=== PATIENT | female | born 1945 | race Caucasian/White ===

== ENCOUNTER 2016-08-29 09:24 | Outpatient (CLI) | payer MEDICARE | END 2016-08-29 09:25 | disposition home or self-care (01) | DX: I82.402 Acute embolism and thrombosis of unspecified deep veins of left lower extremity (principal) ==

== ENCOUNTER 2016-09-07 13:18 | Outpatient (CLI) | payer MEDICARE | END 2016-09-07 13:19 | disposition home or self-care (01) | DX: R22.42 Localized swelling, mass and lump, left lower limb (principal); Z86.718 Personal history of other venous thrombosis and embolism ==

== ENCOUNTER 2016-09-13 08:20 | Outpatient (CLI) | payer MEDICARE | END 2016-09-13 08:21 | disposition home or self-care (01) | DX: I82.402 Acute embolism and thrombosis of unspecified deep veins of left lower extremity (principal) ==

== ENCOUNTER 2016-10-14 09:00 | Outpatient (CLI) | payer MEDICARE | END 2016-10-14 09:01 | disposition home or self-care (01) | DX: I82.402 Acute embolism and thrombosis of unspecified deep veins of left lower extremity (principal) ==

== ENCOUNTER 2016-11-22 13:55 | Outpatient (CLI) | payer MEDICARE | END 2016-11-22 13:56 | disposition home or self-care (01) | DX: I82.402 Acute embolism and thrombosis of unspecified deep veins of left lower extremity (principal) ==

== ENCOUNTER 2016-12-05 19:37 | Outpatient (CLI) | payer MEDICARE | END 2016-12-05 19:38 | disposition home or self-care (01) | DX: K80.20 Calculus of gallbladder without cholecystitis without obstruction (principal); K76.0 Fatty (change of) liver, not elsewhere classified ==

== ENCOUNTER 2016-12-12 11:53 | Outpatient (CLI) | payer MEDICARE | END 2016-12-12 11:54 | disposition home or self-care (01) | DX: I82.402 Acute embolism and thrombosis of unspecified deep veins of left lower extremity (principal); D72.829 Elevated white blood cell count, unspecified ==

== ENCOUNTER 2016-12-16 08:17 | Outpatient (CLI) | payer MEDICARE | END 2016-12-16 08:18 | disposition home or self-care (01) | DX: D72.829 Elevated white blood cell count, unspecified (principal); I51.7 Cardiomegaly; R91.8 Other nonspecific abnormal finding of lung field ==

== ENCOUNTER 2016-12-21 14:39 | Outpatient (CLI) | payer MEDICARE ==
[2016-12-21] MEDS ORDERED: IOPAMIDOL-300 100 ML VIAL IVP ONE (16:43)
== END 2016-12-21 14:40 | disposition home or self-care (01) ==
DX: R91.1 Solitary pulmonary nodule (principal); R11.0 Nausea; R63.4 Abnormal weight loss

== ENCOUNTER 2017-01-09 13:48 | Outpatient (CLI) | payer MEDICARE | END 2017-01-09 13:49 | disposition home or self-care (01) | LOC: LAB.F 13:48 | PROVIDERS: ATTEND Internal Medicine | DX: I82.402 Acute embolism and thrombosis of unspecified deep veins of left lower extremity (principal) | CPT/HCPCS: 85610 ==

== ENCOUNTER 2017-01-26 09:09 | Outpatient (CLI) | payer MEDICARE ==
[2017-01-26 09:35] LABS: BASOPHILS # (AUTO) 0.2 10^3/uL (0.0-0.1); EOSINOPHILS # (AUTO) 0.5 10^3/uL (0.0-0.7); EOSINOPHILS % (AUTO) 2.5 %; HCT - HEMATOCRIT 45.2 % (37.0-47.0); HGB - HEMOGLOBIN 14.7 g/dL (12.0-16.0); LYMPHOCYTES # (AUTO) 1.7 10^3/uL (1.5-3.5); LYMPHOCYTES % (AUTO) 7.9 %; MEAN CORPUSCULAR HEMOGLOBIN 30.4 pg (27.0-31.0); MEAN CORPUSCULAR HGB CONC 32.5 g/dL (32.0-36.0); MEAN CORPUSCULAR VOLUME 93.7 fL (81.0-99.0); MEAN PLATELET VOLUME 8.5 fL (7.9-10.8); MONOCYTES # (AUTO) 0.7 10^3/uL (0.0-1.0); MONOCYTES % (AUTO) 3.4 %; NEUTROPHILS # (AUTO) 18.6 10^3/uL (1.5-6.6); NEUTROPHILS % (AUTO) 85.2 %; RED BLOOD COUNT 4.82 10^6/uL (4.20-5.40); RED CELL DISTRIBUTION WIDTH 16.9 % (12.0-15.0); UNCORRECTED WHITE BLOOD COUNT 21.9 x10^3/uL; WHITE BLOOD COUNT 21.9 x10^3/uL (4.8-10.8)
[2017-01-26 10:10] LABS: PLATELET ESTIMATE, MANUAL NORMAL (130-450,000) (NORMAL); PLATELET MORPHOLOGY NORMAL APPEARANCE (NORMAL)
--- NOTE | 2017-01-27 15:33 | Mammography Report ---
DIGITAL SCREENING MAMMOGRAM: 01/26/2017 CLINICAL INDICATION: A 71-year-old with family history of breast cancer, for screening. COMPARISON: 12/2015, 12/2014, 11/2013, 02/2012, 10/2010, 05/2009, 04/2008, 04/2007. TECHNIQUE: Routine CC and MLO projections were obtained of the breasts. Bilateral laterally exaggera milo craniocaudal views. FINDINGS: The breasts again demonstrate scattered fibroglandular densities bilaterally. Coarse and p unctate, typically benign calcifications are present. No suspicious masses, clustered microcalcificat ions, or regions of architectural distortion are identified. IMPRESSION: BENIGN FINDINGS. RECOMMENDATION: ROUTINE ANNUAL SCREENING UNLESS OTHERWISE CLINICALLY INDICATED. BIRADS CATEGORY 2-BENIGN FINDINGS. STANDARD QUALIFYING STATEMENTS 1. This examination was reviewed with the aid of Computer-Aided Detection (CAD). 2. A negative or benign imaging report should not delay biopsy if clinically suspicious findings are present. Consider surgical consultation if warranted. More than 5% of cancers are not identified by i maging. 3. Dense breasts may obscure an underlying neoplasm. JOB #: [id number] EXT JOB #:[id number]
== END 2017-01-26 09:10 | disposition home or self-care (01) ==
LOC: DI 09:09
PROVIDERS: ATTEND Internal Medicine
DX: Z12.31 Encounter for screening mammogram for malignant neoplasm of breast (principal); D72.0 Genetic anomalies of leukocytes; Z80.3 Family history of malignant neoplasm of breast
CPT/HCPCS: 36415; 85025; G0202; 77067

== ENCOUNTER 2017-02-20 10:13 | Outpatient (CLI) | payer MEDICARE | END 2017-02-20 10:14 | disposition home or self-care (01) | LOC: LAB.F 10:13 | PROVIDERS: ATTEND Internal Medicine | DX: I82.402 Acute embolism and thrombosis of unspecified deep veins of left lower extremity (principal) | CPT/HCPCS: 85610 ==

== ENCOUNTER 2017-04-11 14:53 | Outpatient (CLI) | payer MEDICARE | END 2017-04-11 14:54 | disposition home or self-care (01) | LOC: LAB 14:53 | PROVIDERS: ATTEND Internal Medicine | DX: I82.402 Acute embolism and thrombosis of unspecified deep veins of left lower extremity (principal) | CPT/HCPCS: 85610 ==

== ENCOUNTER 2017-04-21 10:09 | Outpatient (CLI) | payer MEDICARE | END 2017-04-21 10:10 | disposition home or self-care (01) | LOC: LAB 10:09 | PROVIDERS: ATTEND Internal Medicine | DX: I82.402 Acute embolism and thrombosis of unspecified deep veins of left lower extremity (principal) | CPT/HCPCS: 85610 ==

== ENCOUNTER 2017-05-03 09:56 | Outpatient (CLI) | payer MEDICARE | END 2017-05-03 09:57 | disposition home or self-care (01) | LOC: LAB.F 09:56 | PROVIDERS: ATTEND Internal Medicine | DX: I82.402 Acute embolism and thrombosis of unspecified deep veins of left lower extremity (principal) | CPT/HCPCS: 85610 ==

== ENCOUNTER 2017-06-16 13:24 | Outpatient (CLI) | payer MEDICARE | END 2017-06-16 13:25 | disposition home or self-care (01) | LOC: LAB.F 13:24 | PROVIDERS: ATTEND Internal Medicine | DX: I82.402 Acute embolism and thrombosis of unspecified deep veins of left lower extremity (principal) | CPT/HCPCS: 85610 ==

== ENCOUNTER 2017-07-07 08:11 | Outpatient (CLI) | payer MEDICARE | END 2017-07-07 08:12 | disposition home or self-care (01) | LOC: LAB.F 08:11 | PROVIDERS: ATTEND Internal Medicine | DX: I82.402 Acute embolism and thrombosis of unspecified deep veins of left lower extremity (principal) | CPT/HCPCS: 85610 ==

== ENCOUNTER 2017-08-11 12:59 | Outpatient (CLI) | payer MEDICARE | END 2017-08-11 13:00 | disposition home or self-care (01) | LOC: LAB.F 12:59 | PROVIDERS: ATTEND Internal Medicine | DX: I82.402 Acute embolism and thrombosis of unspecified deep veins of left lower extremity (principal) | CPT/HCPCS: 85610 ==

== ENCOUNTER 2017-08-23 13:26 | Outpatient (CLI) | payer MEDICARE ==
--- NOTE | 2017-08-24 11:52 | XRAY Report ---
DATE OF SERVICE: 08/23/2017 TWO VIEW CHEST: 08/23/2017 COMPARISON: Chest CT 12/21/2016 INDICATION: Cough, fever. TECHNIQUE: Two views of the chest. FINDINGS There is stable elevation of the right diaphragm. Borderline heart size. Stable finding. No focal pulmonary abnormality. No pneumothorax or pleural effusion. Mediastinum otherwise unremarkable. IMPRESSION: NO EVIDENCE OF ACUTE THORACIC PROCESS. TD: 08/23/2017 18:27 [facility]
== END 2017-08-23 13:27 | disposition home or self-care (01) ==
LOC: DI 13:26
PROVIDERS: ATTEND Internal Medicine
DX: R05 Cough (principal); R50.9 Fever, unspecified
CPT/HCPCS: 71046

== ENCOUNTER 2017-08-29 15:07 | Outpatient (CLI) | payer MEDICARE | END 2017-08-29 15:08 | disposition home or self-care (01) | LOC: LAB.F 15:07 | PROVIDERS: ATTEND Internal Medicine | DX: I82.402 Acute embolism and thrombosis of unspecified deep veins of left lower extremity (principal) | CPT/HCPCS: 85610 ==

== ENCOUNTER 2017-09-05 14:21 | Outpatient (CLI) | payer MEDICARE | END 2017-09-05 14:22 | disposition home or self-care (01) | LOC: LAB.F 14:21 | PROVIDERS: ATTEND Internal Medicine | DX: I82.402 Acute embolism and thrombosis of unspecified deep veins of left lower extremity (principal) | CPT/HCPCS: 85610 ==

== ENCOUNTER 2017-09-27 08:00 | Outpatient (CLI) | payer MEDICARE | END 2017-09-27 08:01 | disposition home or self-care (01) | LOC: LAB.F 08:00 | PROVIDERS: ATTEND Internal Medicine | DX: I82.402 Acute embolism and thrombosis of unspecified deep veins of left lower extremity (principal) | CPT/HCPCS: 85610 ==

== ENCOUNTER 2017-10-02 12:51 | Outpatient (CLI) | payer MEDICARE ==
[2017-10-02 18:04] LABS: GLUCOSE, URINE (UA) NEGATIVE (NEGATIVE); KETONES,URINE (UA) NEGATIVE (NEGATIVE); LEUKOCYTE ESTERASE, URINE TRACE (NEGATIVE); NITRITE,URINE NEGATIVE (NEGATIVE); OCCULT BLOOD,URINE NEGATIVE (NEGATIVE); PH,URINE 5.5 PH (5.0-7.5); PROTEIN,URINE NEGATIVE (NEGATIVE); UROBILINOGEN,URINE 0.2 (NORMAL) E.U./dL (NORMAL)
[2017-10-02 18:18] LABS: BILIRUBIN,URINE SMALL (NEGATIVE); CLARITY,URINE HAZY (CLEAR); ICTOTEST,URINE POSITIVE
[2017-10-02 19:10] LABS: RBC,URINE 0-5 /HPF (0-5)
[2017-10-02 19:11] LABS: BACTERIA,URINE Many /HPF (None Seen); CRYSTALS,URINE >50 Calcium Oxalate /LPF; SQUAMOUS EPITHELIAL CELL,UR FEW Squamous (<= Few)
== END 2017-10-02 12:52 | disposition home or self-care (01) ==
LOC: LAB.F 12:51
PROVIDERS: ATTEND Internal Medicine
DX: R60.9 Edema, unspecified (principal); R30.0 Dysuria
CPT/HCPCS: 36415; 81001; 81003; 83880; 87086

== ENCOUNTER 2017-10-07 12:50 | Outpatient (CLI) | payer MEDICARE | END 2017-10-07 12:51 | disposition home or self-care (01) | LOC: DI 12:50 | PROVIDERS: ATTEND Internal Medicine | DX: R60.9 Edema, unspecified (principal); I51.7 Cardiomegaly; I35.0 Nonrheumatic aortic (valve) stenosis | CPT/HCPCS: 93306 ==

== ENCOUNTER 2017-10-18 10:14 | Outpatient (CLI) | payer MEDICARE ==
[2017-10-18] MEDS ORDERED: BARIUM SULFATE 397 GM ENEMA PR ONE (13:19)
[2017-10-18] MEDS ORDERED: SIMETHICONE/SOD BICARB/CIT AC 1 EACH PACKET PO ONE (13:19)
[2017-10-18] MEDS ORDERED: BARIUM SULFATE 176 GM BOTTLE PO ONE (13:19)
--- NOTE | 2017-10-18 15:15 | XRAY Report ---
UPPER GI WITH SMALL BOWEL FOLLOW-THROUGH: 10/18/2017 CLINICAL INDICATION: Nausea, early satiety. FINDINGS: Single and double contrast upper GI was performed, followed by small bowel follow-through. The esophagus is normal in caliber. Incidental note is made of a small Zenker' s diverticulum arising from the posterior cervical esophagus. No esophageal ulceration, mass lesion, or stricturing is identified. Gastroesophageal reflux was visualized throughout the course of the upper GI study. The stomach demonstrates a normal fold pattern. No gastric ulceration or mass lesion is seen. The duodenal cap distends normally. The duodenal C-loop appears unremarkable. Incidental note is made of a diverticulum arising from the third portion. A 13 mm barium pill passed freely through the esophagus and into the stomach. Contrast passes freely from the duodenum into the more distal small bowel loops. The jejunum and ileum demonstrate normal fold patterns. No abnormal dilatation or separation of small bowel loops is identified. Oral contrast reached the cecum on the 15-minute film. The terminal ileum appears unremarkable. IMPRESSION: 1. SMALL ZENKER'S DIVERTICULUM. 2. GASTROESOPHAGEAL REFLUX, WITHOUT EVIDENCE OF A HIATAL HERNIA. 3. NORMAL SMALL BOWEL FOLLOW-THROUGH. FLUOROSCOPY TIME: 5 MINUTES 40 SECONDS; 30 SPOT IMAGES OBTAINED. TD: 10/18/2017 15:13 [facility]
== END 2017-10-18 10:15 | disposition home or self-care (01) ==
LOC: DI 10:14
PROVIDERS: ATTEND Surgery
DX: K22.5 Diverticulum of esophagus, acquired (principal); K21.9 Gastro-esophageal reflux disease without esophagitis
CPT/HCPCS: 74249; A9270

== ENCOUNTER 2017-10-30 09:34 | Outpatient (CLI) | payer MEDICARE | END 2017-10-30 09:35 | disposition home or self-care (01) | LOC: LAB.F 09:34 | PROVIDERS: ATTEND Internal Medicine | DX: I82.402 Acute embolism and thrombosis of unspecified deep veins of left lower extremity (principal) | CPT/HCPCS: 85610 ==

== ENCOUNTER 2017-12-15 10:29 | Outpatient (CLI) | payer MEDICARE | END 2017-12-15 10:30 | disposition home or self-care (01) | LOC: LAB.F 10:29 | PROVIDERS: ATTEND Internal Medicine | DX: I82.402 Acute embolism and thrombosis of unspecified deep veins of left lower extremity (principal) | CPT/HCPCS: 85610 ==

== ENCOUNTER 2018-01-17 14:36 | Outpatient (CLI) | payer MEDICARE ==
[2018-01-17 17:20] LABS: BILIRUBIN,URINE NEGATIVE (NEGATIVE); GLUCOSE, URINE (UA) NEGATIVE (NEGATIVE); KETONES,URINE (UA) NEGATIVE (NEGATIVE); LEUKOCYTE ESTERASE, URINE SMALL (NEGATIVE); NITRITE,URINE NEGATIVE (NEGATIVE); OCCULT BLOOD,URINE NEGATIVE (NEGATIVE); PH,URINE 6.5 PH (5.0-7.5); PROTEIN,URINE NEGATIVE (NEGATIVE); UROBILINOGEN,URINE 1 (NORMAL) E.U./dL (NORMAL)
[2018-01-17 17:25] LABS: CLARITY,URINE CLEAR (CLEAR)
[2018-01-17 19:45] LABS: BACTERIA,URINE None Seen /HPF (None Seen); RBC,URINE 0-5 /HPF (0-5); SQUAMOUS EPITHELIAL CELL,UR RARE Squamous (<= Few)
== END 2018-01-17 14:37 | disposition home or self-care (01) ==
LOC: LAB.F 14:36
PROVIDERS: ATTEND Internal Medicine
DX: I82.402 Acute embolism and thrombosis of unspecified deep veins of left lower extremity (principal); N30.00 Acute cystitis without hematuria
CPT/HCPCS: 81001; 81003; 85610; 87086

== ENCOUNTER 2018-01-25 08:38 | Outpatient (CLI) | payer MEDICARE ==
[2018-01-25 18:01] LABS: BILIRUBIN,URINE NEGATIVE (NEGATIVE); GLUCOSE, URINE (UA) NEGATIVE (NEGATIVE); KETONES,URINE (UA) NEGATIVE (NEGATIVE); LEUKOCYTE ESTERASE, URINE TRACE (NEGATIVE); NITRITE,URINE NEGATIVE (NEGATIVE); OCCULT BLOOD,URINE NEGATIVE (NEGATIVE); PH,URINE 7.5 PH (5.0-7.5); PROTEIN,URINE NEGATIVE (NEGATIVE); UROBILINOGEN,URINE 1 (NORMAL) E.U./dL (NORMAL)
[2018-01-25 18:15] LABS: BACTERIA,URINE None Seen /HPF (None Seen); CLARITY,URINE CLEAR (CLEAR); CREATININE,URINE 82.2 mg/dL; RBC,URINE 0-5 /HPF (0-5); SQUAMOUS EPITHELIAL CELL,UR FEW Squamous (<= Few)
[2018-01-25 18:27] LABS: MICROALBUMIN,URINE < 0.2 mg/dL (0-300.0)
[2018-01-25 18:35] LABS: CHOL/HDL RATIO 4.9 (<4.4); CHOLESTEROL 131 mg/dL; HDL CHOLESTEROL 27 mg/dL; LDL CHOLESTEROL,CALCULATED 85 mg/dL; LDL/HDL RATIO 3.1 (<4.4); VLDL CHOLESTEROL 19 mg/dL
[2018-01-25 18:57] LABS: HB2 TOTAL 15.4 g/dL; HEMOGLOBIN A1C 0.59 g/dL; HEMOGLOBIN A1C % 5.7 % (4.6-6.2)
== END 2018-01-25 08:39 | disposition home or self-care (01) ==
LOC: LAB.F 08:38
PROVIDERS: ATTEND Internal Medicine
DX: Z12.11 Encounter for screening for malignant neoplasm of colon (principal); Z12.12 Encounter for screening for malignant neoplasm of rectum; R50.9 Fever, unspecified; R58 Hemorrhage, not elsewhere classified; K11.7 Disturbances of salivary secretion; I10 Essential (primary) hypertension; J30.2 Other seasonal allergic rhinitis; R05 Cough; J45.909 Unspecified asthma, uncomplicated; I33.0 Acute and subacute infective endocarditis; K76.0 Fatty (change of) liver, not elsewhere classified; R91.1 Solitary pulmonary nodule; E78.3 Hyperchylomicronemia; G11.9 Hereditary ataxia, unspecified; D72.825 Bandemia; Z86.718 Personal history of other venous thrombosis and embolism; D68.51 Activated protein C resistance; K57.90 Diverticulosis of intestine, part unspecified, without perforation or abscess without bleeding; M19.90 Unspecified osteoarthritis, unspecified site; Z79.899 Other long term (current) drug therapy; I82.402 Acute embolism and thrombosis of unspecified deep veins of left lower extremity; Z13.1 Encounter for screening for diabetes mellitus
CPT/HCPCS: 36415; 80053; 80061; 81001; 82043; 82570; 83036; 83721; 84443; 85025; 85610; 87040; 87086

== ENCOUNTER 2018-01-31 10:46 | Outpatient (CLI) | payer MEDICARE ==
[2018-01-31] MEDS ORDERED: IOPAMIDOL-300 100 ML VIAL ONE (11:01)
--- NOTE | 2018-01-31 12:46 | CT Report ---
Procedure Date: 01/31/2018 Accession Number: [id number] / [id number] Procedure: CT - Chest W/ CPT Code: FULL RESULT: EXAM: Chest W/ 01/31/2018 11:21 AM CLINICAL INDICATION: Nodule, fever COMPARISON: 12/21/2016 TECHNIQUE: Axial CT images of the chest were obtained with 80 mL Isovue 300 FINDINGS: The heart and great vessels demonstrate atherosclerotic calcifications. No hilar or mediastinal lymphadenopathy is present. There is patchy left upper lobe infiltrate present. The previously noted 6 mm nodule in the lateral right lower lobe is stable. Additionally, a 4 mm nodule is present in the right upper lobe, also stable. No effusion or pneumothorax. Limited evaluation of upper abdominal structures demonstrates small volume of ascites. Cholelithiasis is noted. IMPRESSION: Stable 6 mm nodule in the lateral right lower lobe. Patchy left upper lobe infiltrate, which may be responsible for the patient's fever. Trace ascites in the upper abdomen, new from previous. CT DOSE REDUCTION STATEMENT In accordance with CT protocol optimization, one or more of the following were used for this exam: automated exposure control, adjustment of mA and or KV based on patient size, or use of iterative reconstructive technique.
[2018-01-31] MEDS ORDERED: IOPAMIDOL-300 100 ML VIAL IVP ONE (13:06)
== END 2018-01-31 10:47 | disposition home or self-care (01) ==
LOC: DI 10:46
PROVIDERS: ATTEND Internal Medicine
DX: R91.1 Solitary pulmonary nodule (principal); R91.8 Other nonspecific abnormal finding of lung field
CPT/HCPCS: 71260; Q9967

== ENCOUNTER 2018-02-13 15:01 | Outpatient (CLI) | payer MEDICARE | END 2018-02-13 15:02 | disposition home or self-care (01) | LOC: LAB.F 15:01 | PROVIDERS: ATTEND Internal Medicine | DX: I82.402 Acute embolism and thrombosis of unspecified deep veins of left lower extremity (principal) | CPT/HCPCS: 85610 ==

== ENCOUNTER 2018-03-07 11:12 | Outpatient (CLI) | payer MEDICARE | END 2018-03-07 11:13 | disposition home or self-care (01) | LOC: LAB.F 11:12 | PROVIDERS: ATTEND Internal Medicine | DX: I82.402 Acute embolism and thrombosis of unspecified deep veins of left lower extremity (principal) | CPT/HCPCS: 85610 ==

== ENCOUNTER 2018-03-10 19:35 | Emergency (ER) | payer MEDICARE ==
[2018-03-10 19:49] VITALS: BP 162/65
[2018-03-10] MEDS ORDERED: HYDROcod/ACETAM 5/325 MG TABLET PO STA (19:55)
--- NOTE | 2018-03-10 19:57 | ED Physician Documentation ---
PD HPI HEAD INJURY - Stated complaint Stated Complaint: GLF/HIT HEAD/NOSE INJURY - Chief complaint Chief Complaint: Trauma Hd/Nk - History obtained from History obtained from: Patient - History of Present Illness Mechanism of head injury: Fell (72-year-old woman with factor V Leiden deficiency and history of DVTs on warfarin with last INR of 2.3 last week presents after a slip and mechanical fall going up 2 stairs because they were outside stairs and they were wet as she was addressing her hot tub and she hit her face and the left parietal area on the junction between the floor and the wall. There is no loss of consciousness. She does have moderate facial pain and headache. Tetanus is up-to-date. No injuries below the nose.) Review of Systems Constitutional: denies: Fever, Chills Cardiac: denies: Chest pain / pressure, Palpitations Respiratory: denies: Dyspnea, Cough Musculoskeletal: denies: Neck pain, Back pain Neurologic: reports: Headache, Head injury. denies: LOC PD PAST MEDICAL HISTORY - Present Medications Home Medications: Ambulatory Orders Medication Instructions Recorded Confirmed Warfarin [Coumadin] 1 tab ORAL DAILY 03/14/17 01/30/18 Calcium Carbonate/Vitamin D3 1 tab PO DAILY 07/11/17 01/30/18 [Calcium 250-Vit D3 125 Tablet] traZODone [Desyrel] 1 tab PO DAILY 07/11/17 01/30/18 Furosemide [Lasix] 1 tab PO DAILY 10/31/17 01/30/18 Oxycodone HCl/Acetaminophen 1 - 2 tab PO Q4H PRN #7 tablet 03/10/18 [Percocet 5-325 mg Tablet] - Allergies Allergies/Adverse Reactions: Allergies Allergy/AdvReac Type Severity Reaction Status Date / Time No Known Drug Allergies Allergy Verified 03/10/18 20:06 PD ED PE NORMAL - Vitals Vital signs reviewed: Yes - General General: Alert and oriented X 3, No acute distress - HEENT HEENT: PERRL, EOMI, Other (There is an abrasion over the bridge of the nose with tenderness of the bridge of the nose and slight leftward deviation of the entire nose. There is no septal hematoma. She has a large boggy hematoma over the left parietal area.) - Neck Neck: Supple, no meningeal sign, No bony TTP - Cardiac Cardiac: RRR, No murmur - Respiratory Respiratory: No respiratory distress, Clear bilaterally - Abdomen Abdomen: Normal bowel sounds, Soft, Non tender - Back Back: No CVA TTP, No spinal TTP - Derm Derm: Normal color, Warm and dry - Neuro Neuro: Alert and oriented X 3, Normal speech Eye Opening: Spontaneous Motor: Obeys Commands Verbal: Oriented GCS Score: 15 - Psych Psych: Normal mood, Normal affect Results - Vitals Vitals: Vital Signs - 24 hr 03/10/18 19:35 Temperature 36.7 C Heart Rate 80 Respiratory 16 Rate Blood Pressure 162/65 H O2 Saturation 97 Oxygen O2 Source Room air - Labs Labs: Laboratory Tests 03/10/18 20:03 Whole Blood INR 2.4 H - Rads (name of study) CT Head and face Radiology: EMP read contemporaneously (Subgaleal hematomas without any intracranial injury, there is a nasal fracture which I believe is acute based on the history and physical, it was indeterminant on the CT.) PD MEDICAL DECISION MAKING - Sepsis Event Vital Signs: Vital Signs - 24 hr 03/10/18 19:35 Temperature 36.7 C Heart Rate 80 Respiratory 16 Rate Blood Pressure 162/65 H O2 Saturation 97 Oxygen O2 Source Room air Departure - Departure Disposition: 01 Home, Self Care Clinical Impression: Adequate anticoagulation on anticoagulant therapy Fracture of nasal bone Qualifiers: Encounter type: initial encounter Fracture type: closed Qualified Code(s): S02.2XXA - Fracture of nasal bones, initial encounter for closed fracture Injury of head and neck Qualifiers: Encounter type: initial encounter Qualified Code(s): S09.90XA - Unspecified injury of head, initial encounter; S19.9XXA - Unspecified injury of neck, initial encounter; S19.9XXA - Unspecified injury of neck, initial encounter Clinical Impression: (Ruled Out): Subdural hemorrhage Condition: Good Record reviewed to determine appropriate education?: Yes Instructions: ED Head Injury Closed Sleep Mon, ED Fx Nasal Conf W X Ray Prescriptions: Oxycodone HCl/Acetaminophen [Percocet 5-325 mg Tablet] 1 - 2 tab PO Q4H PRN #7 tablet PRN Reason: Pain Comments: Return if worsening or if new symptoms develop. Your blood pressure was elevated today on check into the emergency department. This does not mean that you have hypertension, it is a common phenomenon to come to the emergency department and have elevated blood pressure. I recommend that you see your primary care physician within the week to have it rechecked when you are feeling better. Do not drink or drive while taking narcotic pain medication. Note that many narcotic pain relievers also contain Tylenol/acetaminophen. Please ensure that your total dose of acetaminophen from all sources does not exceed 3 g (3000 mg) per day. You may get constipated while on this medication. Take a stool softener such as Colace twice a day while you are on it. Also add an [id number] laxative such as senna or MiraLAX on any day that you do not have a bowel movement. If you received a narcotic pain medication or sedative while in the emergency department, do not drive for the next 24 hours.
--- NOTE | 2018-03-10 21:01 | CT Report ---
Procedure Date: 03/10/2018 Accession Number: [id number] / [id number] Procedure: CT - Head W/O CPT Code: FULL RESULT: EXAM: CT HEAD EXAM DATE: 03/10/2018 08:33 PM. CLINICAL HISTORY: Fall. Head/facial injury. COMPARISON: None. TECHNIQUE: Multiaxial CT images were obtained from the foramen magnum to the vertex. Reformats: Sagittal and coronal. IV contrast: None. In accordance with CT protocol optimization, one or more of the following dose reduction techniques were utilized for this exam: automated exposure control, adjustment of mA and/or KV based on patient size, or use of iterative reconstructive technique. FINDINGS: Parenchyma: No intraparenchymal hemorrhage, mass effect, or CT findings of evolving acute/subacute infarct. Tobin-white differentiation is distinct. Extraaxial Spaces: Normal for age. No subdural or epidural collections identified. Ventricles: Normal in size and position. Sinuses and Orbits: Imaged paranasal sinuses, orbits, and mastoids show no significant abnormality. Bones: Hyperostosis frontalis interna. No calvarial fracture or defect. Age-indeterminate minimally displaced left anterior nasal bone fracture. Other: Right frontal and left parietal subgaleal scalp hematomas. IMPRESSION: 1. Right frontal and left parietal subgaleal scalp hematomas. 2. Age-indeterminate minimally displaced left anterior nasal bone fracture. 3. No acute intracranial abnormality. RADIA
--- NOTE | 2018-03-10 21:04 | CT Report ---
Procedure Date: 03/10/2018 Accession Number: [id number] / [id number] Procedure: CT - Facial Bones W/O CPT Code: FULL RESULT: EXAM: CT MAXILLOFACIAL WITHOUT CONTRAST EXAM DATE: 03/10/2018 08:32 PM. CLINICAL HISTORY: Fall. Head/facial injury. COMPARISONS: None. TECHNIQUE: Thin-section axial images were acquired of the face without contrast. Post-processing: Coronal and sagittal reformats. Other: None. In accordance with CT protocol optimization, one or more of the following dose reduction techniques were utilized for this exam: automated exposure control, adjustment of mA and/or KV based on patient size, or use of iterative reconstructive technique. FINDINGS: Bones: Age-indeterminate minimally displaced left anterior nasal bone fracture. Temporomandibular Joints: The temporomandibular joints are symmetric and normally located. Sinuses: Mild mucosal thickening in the maxillary sinus floors. Otherwise clear. No fluid levels. Other: Right frontal subgaleal scalp hematoma. Mild right paranasal soft tissue swelling. The globes are intact. No evidence for retrobulbar hematoma. IMPRESSION: Age-indeterminate minimally displaced left anterior nasal bone fracture. RADIA
[2018-03-10] MEDS ORDERED: oxyCODONE/ACET 5/325 Prepack 4 PO STA (21:13)
== END 2018-03-10 21:22 | disposition home or self-care (01) ==
LOC: ED 19:35
DX: S02.2XXA Fracture of nasal bones, initial encounter for closed fracture (principal); S09.90XA Unspecified injury of head, initial encounter; S19.9XXA Unspecified injury of neck, initial encounter; S00.31XA Abrasion of nose, initial encounter; S00.03XA Contusion of scalp, initial encounter; W10.9XXA Fall (on) (from) unspecified stairs and steps, initial encounter; Z79.01 Long term (current) use of anticoagulants
CPT/HCPCS: 70450; 70486; 85610; 99283; A9270

== ENCOUNTER 2018-03-23 08:10 | Outpatient (CLI) | payer MEDICARE ==
[2018-03-23] MEDS ORDERED: IOPAMIDOL-300 100 ML VIAL ONE (08:30)
[2018-03-23] MEDS ORDERED: IOPAMIDOL-300 50 ML VIAL ONE (08:30)
[2018-03-23 08:36] LABS: CREATININE 0.4 mg/dL (0.4-1.0)
[2018-03-23] MEDS ORDERED: IOPAMIDOL-300 50 ML VIAL PO ONE (09:59)
[2018-03-23] MEDS ORDERED: IOPAMIDOL-300 100 ML VIAL IVP ONE (09:59)
--- NOTE | 2018-03-23 13:21 | CT Report ---
Procedure Date: 03/23/2018 Accession Number: [id number] / [id number] Procedure: CT - Abdomen/Pelvis W/ CPT Code: FULL RESULT: EXAM: Abdomen/Pelvis W/ DATE: 03/23/2018 9:55 AM CLINICAL HISTORY: ASCITES COMPARISON: 12/21/2016. TECHNIQUE: Routine helical CT imaging was performed through the abdomen and pelvis. IV contrast: 100 mL Isovue 300. Enteric contrast: Yes. Reconstructions: Coronal and sagittal. In accordance with CT protocol optimization, one or more of the following dose reduction techniques were utilized for this exam: automated exposure control, adjustment of mA and/or KV based on patient size, or use of iterative reconstructive technique. FINDINGS: Interval development of ascites and soft tissue anasarca. Splenomegaly up to 17 cm. Cholelithiasis. Uterine calcifications are noted. Interval increase in mild prominence of retroperitoneal and left iliac lymph nodes which do not meet size criteria. The kidneys, adrenal glands and pancreas appear unremarkable. There is no bowel obstruction. Apparent cortical disruptions along the anterior femoral neck cortices seen on one slice only on the right and for a length of 1 cm on the left are unchanged in appearance without additional signs to suggest fracture or impending fracture, possible nutrient foramina. Flowing anterior osteophytosis of the lower thoracic spine is noted (DISH). There are no aggressive osseous lesions. Bones appear qualitatively osteopenic. IMPRESSION: Interval development of ascites in the setting of anasarca. The increase in prominence of the retroperitoneal lymph nodes is nonspecific. RADIA
== END 2018-03-23 08:11 | disposition home or self-care (01) ==
LOC: LAB 08:10
PROVIDERS: ATTEND Internal Medicine
DX: R18.8 Other ascites (principal); R19.07 Generalized intra-abdominal and pelvic swelling, mass and lump
CPT/HCPCS: 36415; 74177; 82565; Q9967

== ENCOUNTER 2018-03-27 10:06 | Outpatient (CLI) | payer MEDICARE | END 2018-03-27 10:07 | disposition critical access hospital (66) | LOC: EMS 10:06 | PROVIDERS: ATTEND Surgery | DX: R06.02 Shortness of breath (principal) | CPT/HCPCS: A0425; A0429 ==

== ENCOUNTER 2018-03-27 10:23 | Inpatient (IN) | payer MEDICARE ==
[2018-03-27] MEDS ORDERED: ALBUTEROL NEB 2.5 MG/3 ML INH STA ×2 (10:31→13:00)
[2018-03-27] MEDS ORDERED: DEXAMETHASONE 10 MG/ML VIAL PO STA ×2 (10:31→13:00)
--- NOTE | 2018-03-27 10:34 | ED Physician Documentation ---
History of Present Illness - Stated complaint Stated Complaint: SOA - Additonal information Additional information: hx from pt she states she had pna in Sep or October txed with xmax then went on 6 wk trip to [facility] again upon return had a CT scan that showed pna (and apparently no PE) again txed with pna no sx back again and is on her third zpack in 6 months also on day 3 of prednisone has albuterol MDI as rescue but has only used twice in the last few days furthermore recently had a CT scan showing an enlarged spleen and ascites and has been referred to pulmonology and oncology for further work up on coumadin no fever (tmax 99) + anna symm leg edema called 911 for SOA and was found hypoxic with sat 86% RA was placed on O2 Review of Systems Constitutional: denies: Fever Cardiac: denies: Chest pain / pressure Respiratory: reports: Dyspnea, Cough, Wheezing GI: reports: Abdominal Swelling Musculoskeletal: reports: Extremity swelling Endocrine: reports: Easy bruising / bleeding Immunocompromised: denies: Immunocompromised PD PAST MEDICAL HISTORY - Past Medical History Respiratory: Asthma - Past Surgical History 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 HEENT: Tonsil/Adenoidectomy - Present Medications Home Medications: Ambulatory Orders Medication Instructions Recorded Confirmed Warfarin [Coumadin] 5 mg PO SUMOTUWETHSA@209903/14/17 03/27/18 Calcium Carbonate/Vitamin D3 1 tab PO DAILY 07/11/17 03/27/18 [Calcium 250-Vit D3 125 Tablet] traZODone [Desyrel] 50 mg PO QPM 07/11/17 03/27/18 Furosemide [Lasix] 20 mg PO DAILY 10/31/17 03/27/18 Albuterol Sulfate [Proair Hfa 2 puffs INH Q4H PRN 03/27/18 03/27/18 Inhaler] Fluticasone [Flonase] 2 sprays DEBI DAILY 03/27/18 03/27/18 Fluticasone/Salmeterol [Advair 1 puffs INH BID 03/27/18 03/27/18 250-50 Diskus] Warfarin [Coumadin] 10 mg PO FR@209903/27/18 03/27/18 - Allergies Allergies/Adverse Reactions: Allergies Allergy/AdvReac Type Severity Reaction Status Date / Time No Known Drug Allergies Allergy Verified 03/27/18 10:40 - Social History Does the pt smoke?: No Smoking Status: Never smoker Does the pt drink ETOH?: Yes Does the pt have substance abuse?: No PD ED PE NORMAL - Vitals Vital signs reviewed: Yes - General General: Alert and oriented X 3 - Cardiac Cardiac: RRR - Respiratory Respiratory: Other (labored, decreased some rales and ronchi). No: No respiratory distress, Clear bilaterally - Abdomen Abdomen: Soft, Non tender, Other (distended non tender ant abd pain lipoma) - Extremities Extremities: Other (anna symm edema) - Neuro Neuro: Alert and oriented X 3 Results - Vitals Vitals: Vital Signs - 24 hr 03/27/18 03/27/18 10:36 11:00 Temperature 37.5 C Heart Rate 96 94 Respiratory 20 22 Rate Blood Pressure 154/69 H O2 Saturation 94 Oxygen O2 Source Nasal cannula Oxygen Flow Rate 3 - EKG (time done) 1039 Rate: Rate (enter#) (98) Rhythm: NSR [place]: Anterior hemiblock Intervals: RBBB Compare to prior EKG: Other (prior echo but no prior EKG in EMR) - Labs Labs: Laboratory Tests 03/27/18 03/27/18 03/27/18 10:48 10:57 10:57 WBC 33.5 H RBC 4.48 Hgb 13.8 Hct 42.1 MCV 94.0 MCH 30.9 MCHC 32.9 RDW 19.6 H Plt Count 157 MPV 9.2 Neut # (Auto) Not Reportable Lymph # (Auto) Not Reportable [place] # (Auto) Not Reportable Eos # (Auto) Not Reportable Baso # (Auto) Not Reportable Absolute Nucleated RBC Not Reportable Total Counted 100 Band Neuts % (Manual) 12 H Abnorm Lymph % (Manual) 0 Metamyelocytes % 1 H Nucleated RBC % Not Reportable Neutrophils # (Manual) 31.2 H Lymphocytes # (Manual) 0.7 L Monocytes # (Manual) 1.3 H Eosinophils # (Manual) 0.0 Basophils # (Manual) 0.0 Differential Comment MANUAL DIFFERENTIAL Manual Slide Review Indicated Platelet Estimate NORMAL (130-450,000) Platelet Morphology NORMAL APPEARANCE RBC Morph Micro Appear NORMAL APPEARANCE PT INR Sodium 136 Potassium 3.8 Chloride 100 L Carbon Dioxide 28 Anion Gap 8.0 BUN 11 Creatinine 0.5 Estimated GFR (MDRD) 121 Glucose 119 H Calcium 8.6 Total Bilirubin Direct Bilirubin AST ALT Alkaline Phosphatase Troponin I B-Natriuretic Peptide Total Protein Albumin Globulin Urine Color ORANGE Urine Clarity CLEAR Urine pH 6.0 Ur Specific [place] 1.020 Urine Protein NEGATIVE Urine Glucose (UA) NEGATIVE Urine Ketones NEGATIVE Urine Occult Blood NEGATIVE Urine Nitrite NEGATIVE Urine Bilirubin SMALL H Urine Urobilinogen 1 (NORMAL) Ur Leukocyte Esterase SMALL H Urine RBC None Seen Urine WBC 11-25 H Ur Squamous Epith Cells FEW Squamous Urine Bacteria Moderate H Urine Mucus Few Strands Ur Microscopic Review INDICATED Urine Culture Comments INDICATED Infectious [place] Assay 03/27/18 03/27/18 03/27/18 10:57 10:57 10:57 WBC RBC Hgb Hct MCV MCH MCHC RDW Plt Count MPV Neut # (Auto) Lymph # (Auto) [place] # (Auto) Eos # (Auto) Baso # (Auto) Absolute Nucleated RBC Total Counted Band Neuts % (Manual) Abnorm Lymph % (Manual) Metamyelocytes % Nucleated RBC % Neutrophils # (Manual) Lymphocytes # (Manual) Monocytes # (Manual) Eosinophils # (Manual) Basophils # (Manual) Differential Comment Manual Slide Review Platelet Estimate Platelet Morphology RBC Morph Micro Appear PT INR Sodium Potassium Chloride Carbon Dioxide Anion Gap BUN Creatinine Estimated GFR (MDRD) Glucose Calcium Total Bilirubin Direct Bilirubin AST ALT Alkaline Phosphatase Troponin I < 0.04 B-Natriuretic Peptide 398 H Total Protein Albumin Globulin Urine Color Urine Clarity Urine pH Ur Specific [place] Urine Protein Urine Glucose (UA) Urine Ketones Urine Occult Blood Urine Nitrite Urine Bilirubin Urine Urobilinogen Ur Leukocyte Esterase Urine RBC Urine WBC Ur Squamous Epith Cells Urine Bacteria Urine Mucus Ur Microscopic Review Urine Culture Comments Infectious [place] Assay NEGATIVE 03/27/18 03/27/18 10:57 10:57 WBC RBC Hgb Hct MCV MCH MCHC RDW Plt Count MPV Neut # (Auto) Lymph # (Auto) [place] # (Auto) Eos # (Auto) Baso # (Auto) Absolute Nucleated RBC Total Counted Band Neuts % (Manual) Abnorm Lymph % (Manual) Metamyelocytes % Nucleated RBC % Neutrophils # (Manual) Lymphocytes # (Manual) Monocytes # (Manual) Eosinophils # (Manual) Basophils # (Manual) Differential Comment Manual Slide Review Platelet Estimate Platelet Morphology RBC Morph Micro Appear PT 35.8 H INR 3.3 H Sodium Potassium Chloride Carbon Dioxide Anion Gap BUN Creatinine Estimated GFR (MDRD) Glucose Calcium Total Bilirubin 2.3 H Direct Bilirubin 0.7 H AST 77 H ALT 40 Alkaline Phosphatase 196 H Troponin I B-Natriuretic Peptide Total Protein 7.5 Albumin 2.7 L Globulin 4.8 H Urine Color Urine Clarity Urine pH Ur Specific [place] Urine Protein Urine Glucose (UA) Urine Ketones Urine Occult Blood Urine Nitrite Urine Bilirubin Urine Urobilinogen Ur Leukocyte Esterase Urine RBC Urine WBC Ur Squamous Epith Cells Urine Bacteria Urine Mucus Ur Microscopic Review Urine Culture Comments Infectious [place] Assay - Rads (name of study) CXR Radiology: See rad report (new RML infiltrate) PD MEDICAL DECISION MAKING - ED course ED course: CT chest January 2018 showed patchy JENNIFER infiltrate and table nodules - was with contrast and no PE CT AP from this week shows gallstones, splenomegaly, ascites, uterine calcifications and adenopathy (pt advised) onc notes indicate pt has myeloprolifitive neoplasm with leukocytosis (but today higher with bandemia), nl H/H plt, also elev bili is not new has new RML infiltrate has failed outpt tx (admittedly could have used MDI more often, but had been on MDI steroids antibiotics at home and failed that tx plan) - worse and today was hypoxic d/w hospitalist at 1255 gave decadron and nebs defer ab choice to admitting team as pt does not meet sepsis criteria and has already been on oral ab so not emergently needing - Sepsis Event Vital Signs: Vital Signs - 24 hr 03/27/18 03/27/18 10:36 11:00 Temperature 37.5 C Heart Rate 96 94 Respiratory 20 22 Rate Blood Pressure 154/69 H O2 Saturation 94 Oxygen O2 Source Nasal cannula Oxygen Flow Rate 3 Departure - Departure Disposition: [facility] DC/Xfer Clinical Impression: Hypoxia Pneumonia Qualifiers: Pneumonia type: due to unspecified organism Laterality: right Lung location: middle lobe of lung Qualified Code(s): J18.1 - Lobar pneumonia, unspecified organism Asthma Qualifiers: Asthma severity: unspecified severity Asthma persistence: unspecified Asthma complication type: with acute exacerbation Qualified Code(s): J45.901 - Unspecified asthma with (acute) exacerbation Condition: Fair Discharge Date/Time: 03/27/18 14:21
[2018-03-27] MEDS ORDERED: CHERRY SYRUP 10 ML UDC PO ONE ×2 (10:46→13:04)
[2018-03-27 11:09] LABS: BILIRUBIN,URINE SMALL (NEGATIVE); GLUCOSE, URINE (UA) NEGATIVE (NEGATIVE); KETONES,URINE (UA) NEGATIVE (NEGATIVE); LEUKOCYTE ESTERASE, URINE SMALL (NEGATIVE); NITRITE,URINE NEGATIVE (NEGATIVE); OCCULT BLOOD,URINE NEGATIVE (NEGATIVE); PROTEIN,URINE NEGATIVE (NEGATIVE); UROBILINOGEN,URINE 1 (NORMAL) E.U./dL (NORMAL)
[2018-03-27 11:12] LABS: BASOPHILS % (AUTO) 1.6 %; EOSINOPHILS % (AUTO) 0.8 %; HGB - HEMOGLOBIN 13.8 g/dL (12.0-16.0); LYMPHOCYTES % (AUTO) 1.7 %; MEAN CORPUSCULAR HEMOGLOBIN 30.9 pg (27.0-31.0); MEAN CORPUSCULAR HGB CONC 32.9 g/dL (32.0-36.0); MEAN PLATELET VOLUME 9.2 fL (7.9-10.8); MONOCYTES % (AUTO) 3.1 %; NEUTROPHILS % (AUTO) 92.8 %; PLT - PLATELET COUNT 157 10^3/uL (130-450); RED BLOOD COUNT 4.48 10^6/uL (4.20-5.40); RED CELL DISTRIBUTION WIDTH 19.6 % (12.0-15.0); WHITE BLOOD COUNT 33.5 x10^3/uL (4.8-10.8)
[2018-03-27 11:16] LABS: CALCIUM 8.6 mg/dL (8.5-10.3); CREATININE 0.5 mg/dL (0.4-1.0)
[2018-03-27 11:28] LABS: CLARITY,URINE CLEAR (CLEAR)
[2018-03-27 11:29] LABS: BACTERIA,URINE Moderate /HPF (None Seen); MUCUS,URINE Few Strands; RBC,URINE None Seen /HPF (0-5); SQUAMOUS EPITHELIAL CELL,UR FEW Squamous (<= Few)
--- NOTE | 2018-03-27 12:13 | XRAY Report ---
Procedure Date: 03/27/2018 Accession Number: [id number] / [id number] Procedure: XR - Chest 2 View X-Ray CPT Code: 49685 FULL RESULT: EXAM: CHEST RADIOGRAPHY EXAM DATE: 03/27/2018 11:59 AM. CLINICAL HISTORY: Cough soa rales. COMPARISON: 08/23/2017, 01/31/2018. TECHNIQUE: 2 views. FINDINGS: Lungs/Pleura: Right middle lobe infiltrate. Chronic eventration anterior right hemidiaphragm. Scarring left lung base. No pleural effusion. No pneumothorax. Decreased volumes. Mediastinum: Mild cardiomegaly and ectatic aorta Other: DJD spine IMPRESSION: Right middle lobe infiltrate RADIA
[2018-03-27 12:19] LABS: ABNORMAL LYMPHS % (MANUAL) 0 %
[2018-03-27 12:20] LABS: BAND NEUTROPHILS % (MANUAL) 12 %; DIFFERENTIAL COMMENT MANUAL DIFFERENTIAL; LYMPHOCYTES # (MANUAL) 0.7 10^3/uL (1.5-3.5); LYMPHOCYTES % (MANUAL) 2 %; METAMYELOCYTES % (MANUAL) 1 %; MONOCYTES # (MANUAL) 1.3 10^3/uL (0.0-1.0); NEUTROPHILS # (MANUAL) 31.2 10^3/uL (1.5-6.6); NEUTROPHILS % (MANUAL) 81 %; PLATELET ESTIMATE, MANUAL NORMAL (130-450,000) (NORMAL); PLATELET MORPHOLOGY NORMAL APPEARANCE (NORMAL); RBC MORPHOLOGY (MULTIPLE) NORMAL APPEARANCE (NORMAL)
[2018-03-27 12:58] LABS: INR 3.3 (0.8-1.2); PT - PROTHROMBIN TIME 35.8 secs (9.9-12.6)
[2018-03-27] MEDS ORDERED: ALBUTEROL NEB 2.5 MG/3 ML INH PRN (13:02)
[2018-03-27] MEDS ORDERED: HYDROcod/ACETAM 5/325 MG TABLET PO PRN (13:02)
[2018-03-27] MEDS ORDERED: HYDROcod/ACETAM 10 MG/325 MG TABLET PO PRN (13:02)
[2018-03-27] MEDS ORDERED: ACETAMINOPHEN 325 MG TABLET PO PRN (13:02)
[2018-03-27] MEDS ORDERED: ONDANSETRON 4 MG/2 ML VIAL IVP PRN (13:02)
[2018-03-27] MEDS ORDERED: ZOLPIDEM 5 MG TABLET PO PRN (13:02)
[2018-03-27] MEDS ORDERED: PROCHLORPERAZINE 10 MG/2 ML VIAL IVP PRN (13:02)
--- NOTE | 2018-03-27 13:09 | HISTORY & PHYSICAL EXAMINATION ---
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 The patient states that she has had 3 episodes of pneumonia since June 2017. She states that she has been treated with Z-Herminio all 3 times. She states her most recent episode was in January 2018. She states that she seems to be better for short period of time but then has recurrence of the pneumonia. 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 She states that over the last 2 days she has had increasing cough and this morning she became very short of breath just at rest. She states that she could not even talk she was so short of breath. She denies any fevers or chills but states that she had a long coughing episode prior to the shortness of breath this morning. She does admit to having a chronic cough but states it has been worse the last 2 days. She states that she was in significant respiratory distress when she finally decided to come to the emergency department. The patient also states that she has been having some abdominal discomfort and abdominal distention over the last few months. She states that she saw her primary care physician regarding the symptoms and underwent a CT of her abdomen and pelvis. The patient was found to have splenomegaly which was old, along with developing ascites and increased retroperitoneal lymph nodes on the CT scan. The patient was scheduled to see her oncologist today but came to the emergency department. The patient has also been following up with surgery regarding gallstones and is scheduled to get a HIDA scan tomorrow. Regarding the patient's cough and recurrent pneumonia she also has an appointment with pulmonology in April. The patient denies any chest pain, orthopnea, PND but does admit to increased lower extremity swelling. The patient states that she had been dieting and exercising and had lost 60 pounds. She states that over the last few weeks she has gained a lot of weight. She also states that she has become increasingly swollen her abdomen as well as in her legs. Patient otherwise denies any headaches, blurred vision, runny nose, sore throat , nasal congestion, difficulty swallowing, palpitations, nausea, vomiting, diarrhea, constipation, joint pain, muscle aches, back pain, neck stiffness, change in appetite, hair loss, skin rashes, polyuria, polydipsia, night sweats or any focal neurologic deficits. On presentation to the emergency department the patient was afebrile, mildly tachycardic with a heart rate of 96, hypertensive and hypoxic down to 85% on room air. The patient was placed on 3 L of oxygen and oxygen saturation improved to 92%. While the patient was in the emergency department she was tachypneic with respiratory rate up to 34. The patient did appear to be in mild to moderate respiratory distress when she appeared in the emergency department. The patient was treated in the emergency department with Decadron and albuterol. The patient did have some mild improvement but remained hypoxic. The patient's chest x-ray showed a right middle lobe pneumonia and given her failure with outpatient treatment in the past she was admitted for IV antibiotics. The patient did have a leukocytosis of 33.5 however given her myeloproliferative disorder this was near her chronic range. The patient did have small leukocyte esterase with 11-25 WBCs and bacteria on her urine analysis. The patient's BNP was slightly elevated at 398 and troponin was negative. The patient's INR was mildly elevated at 3.3. The patient's LFTs were not checked in the emergency department. 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 Her and her have been for almost 50 years. 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 She has 2 children. She does drink wine occasionally but denies ever having smoked cigarettes and denies any illicit drug use per - POLST POLST Status: Full Code Meds/Allgy - Home Medications Home Medications: Ambulatory Orders Medication Instructions Recorded Confirmed Warfarin [Coumadin] 5 mg PO SUMOTUWETHSA@2100 03/14/17 03/27/18 Calcium Carbonate/Vitamin D3 1 tab PO DAILY 07/11/17 03/27/18 [Calcium 250-Vit D3 125 Tablet] traZODone [Desyrel] 50 mg PO QPM 07/11/17 03/27/18 Furosemide [Lasix] 20 mg PO DAILY 10/31/17 03/27/18 Albuterol Sulfate [Proair Hfa 2 puffs INH Q4H PRN 03/27/18 03/27/18 Inhaler] Fluticasone [Flonase] 2 sprays DEBI DAILY 03/27/18 03/27/18 Fluticasone/Salmeterol [Advair 1 puffs INH BID 03/27/18 03/27/18 250-50 Diskus] Warfarin [Coumadin] 10 mg PO FR@2100 03/27/18 03/27/18 - Allergies Allergies/Adverse Reactions: Allergies Allergy/AdvReac Type Severity Reaction Status Date / Time No Known Drug Allergies Allergy Verified 03/27/18 10:40 Review of Systems - Other Findings Other Findings: A comprehensive review of systems was performed the pertinent positives and negatives are stated above in the HPI and the remainder of the review of systems is negative. Exam - Vital Signs Reviewed Vital Signs: Yes Vital Signs: Vital Signs x48h Temp Pulse Resp BP Pulse Ox 03/27/18 11:00 94 22 03/27/18 10:36 37.5 C 96 20 154/69 H 94 - Physical Exam General Appearance: positive: Alert, Mild distress (Respiratory distress), Other (Obese) Eyes Bilateral: positive: Normal inspection, PERRL ENT: positive: ENT inspection nml, Pharynx nml, No signs of dehydration. negative: Purulent nasal drainage, Pharyngeal erythema, Oral lesions Neck: positive: Nml inspection, Thyroid nml, No JVD, Trachea midline. negative : Thyromegaly, Lymphadenopathy (R), Lymphadenopathy (L), Stiff neck, Carotid bruit, Tracheal deviation Respiratory: positive: Chest non-tender, Wheezes (Scatttered), Rhonchi (Right middle lung) Cardiovascular: positive: Regular rate & rhythm, No gallop, Systolic murmur Peripheral Pulses: positive: 2+ Abdomen: positive: Non-tender, No organomegaly, Nml bowel sounds, Tenderness ( Left upper quadrant), Splenomegaly. negative: Guarding, Rebound Back: positive: Nml inspection. negative: CVA tenderness (R), CVA tenderness (L ) Skin: positive: Color nml, No rash, Warm, Dry. negative: Cyanosis, Diaphoresis , Pallor, Skin rash Extremities: positive: Non-tender, Full ROM, Nml appearance, Pedal edema ( Bilateral 2+ edema), Other (anasarca) Neurologic/Psychiatric: positive: Oriented x3, CN's nml (2-12), Motor nml, Sensation nml, Mood/affect nml Conclusion/Plan - Problem List (1) CAP (community acquired pneumonia) Conclusion/Plan: Patient has had recurrent pneumonia for the last 9 months. Patient has had 3 previous episodes most recently in January that were all treated with Z-Herminio. She presented to the emergency department today with cough and shortness of breath. Patient was found to have right middle lobe pneumonia. On presentation patient was hypoxic and tachypneic with respiratory distress. The patient was found to have rhonchi and wheezing on examination. She did improve with albuterol treatment but given the hypoxia and recurrent pneumonias patient was hospitalized for treatment of community acquired pneumonia with IV antibiotics. Plan: IV ceftriaxone and azithromycin Supplemental oxygen Albuterol nebs as needed IV Solu-Medrol Monitor Qualifiers: Laterality: right Lung location: middle lobe of lung Qualified Code(s): J18.1 - Lobar pneumonia, unspecified organism (2) Asthma exacerbation Conclusion/Plan: Patient has a history of asthma and appears to have a mild asthma exacerbation secondary to pneumonia. The patient does have some wheezing on examination and is hypoxic on presentation. The patient did improve with albuterol in the emergency department but continues to have some mild wheezing on exam. Plan: Albuterol nebs as needed Solu-Medrol IV 3 times daily Supplemental oxygen IV antibiotics for treatment of pneumonia Qualifiers: Asthma severity: mild Asthma persistence: intermittent Qualified Code(s) : J45.21 - Mild intermittent asthma with (acute) exacerbation (3) History of DVT (deep vein thrombosis) Conclusion/Plan: Patient has a history of DVT with Leiden factor V mutation and is on chronic Coumadin. The patient's INR on presentation is 3.3. The patient's Coumadin will be held today and restarted once INR is in the therapeutic range. (4) Myeloproliferative neoplasm Conclusion/Plan: Patient has a history of myeloproliferative neoplasm with leukocytosis. The patient continues to have chronic leukocytosis with WBC being 33.5 on presentation. This is the highest leukocytosis that she has had. Patient was recently being worked up for abdominal discomfort and found to have splenomegaly which is chronic along with increasing retroperitoneal lymph nodes and ascites. I spoke with Dr. Sharp oncology who felt that patient's recent findings on CT were not suggestive of malignancy. She advised that the patient follow-up as an outpatient. She did not ask for a paracentesis or cytology of the ascitic fluid. (5) Ascites Conclusion/Plan: The patient was found to have new ascites on CT of her abdomen and pelvis. The patient does have history of fatty liver but there was no comment of the liver on the CT scan. It is unclear at this point why the patient has ascites. We will get an echocardiogram to further evaluate for possibility of CHF and right- sided heart failure as cause of the patient's ascites. We will also check patient's LFTs daily. We will get a hepatitis panel. Will monitor for any worsening ascites and get a possible paracentesis if needed. Qualifiers: Ascites type: other type Qualified Code(s): R18.8 - Other ascites - Lab Results Lab results reviewed: Yes Fish Bones: 03/27/18 10:57 03/27/18 10:57 Other Lab Results: Laboratory Results WBC 33.5 x10^3/uL (4.8-10.8) H 03/27/18 10:57 RBC 4.48 10^6/uL (4.20-5.40) 03/27/18 10:57 Hgb 13.8 g/dL (12.0-16.0) 03/27/18 10:57 Hct 42.1 % (37.0-47.0) 03/27/18 10:57 MCV 94.0 fL (81.0-99.0) 03/27/18 10:57 MCH 30.9 pg (27.0-31.0) 03/27/18 10:57 MCHC 32.9 g/dL (32.0-36.0) 03/27/18 10:57 RDW 19.6 % (12.0-15.0) H 03/27/18 10:57 Plt Count 157 10^3/uL (130-450) 03/27/18 10:57 MPV 9.2 fL (7.9-10.8) 03/27/18 10:57 Neut # (Auto) Not Reportable 03/27/18 10:57 Lymph # (Auto) Not Reportable 03/27/18 10:57 [place] # (Auto) Not Reportable 03/27/18 10:57 Eos # (Auto) Not Reportable 03/27/18 10:57 Baso # (Auto) Not Reportable 03/27/18 10:57 Absolute Nucleated RBC Not Reportable 03/27/18 10:57 Total Counted 100 03/27/18 10:57 Band Neuts % (Manual) 12 % (0-10) H 03/27/18 10:57 Abnorm Lymph % (Manual) 0 % 03/27/18 10:57 Metamyelocytes % 1 % (-0) H 03/27/18 10:57 Nucleated RBC % Not Reportable 03/27/18 10:57 Neutrophils # (Manual) 31.2 10^3/uL (1.5-6.6) H 03/27/18 10:57 Lymphocytes # (Manual) 0.7 10^3/uL (1.5-3.5) L 03/27/18 10:57 Monocytes # (Manual) 1.3 10^3/uL (0.0-1.0) H 03/27/18 10:57 Eosinophils # (Manual) 0.0 10^3/uL (0-0.7) 03/27/18 10:57 Basophils # (Manual) 0.0 10^3/uL (0-0.1) 03/27/18 10:57 Differential Comment MANUAL DIFFERENTIAL 03/27/18 10:57 Manual Slide Review Indicated 03/27/18 10:57 Platelet Estimate NORMAL (130-450,000) (NORMAL) 03/27/18 10:57 Platelet Morphology NORMAL APPEARANCE (NORMAL) 03/27/18 10:57 RBC Morph Micro Appear NORMAL APPEARANCE (NORMAL) 03/27/18 10:57 PT 35.8 secs (9.9-12.6) H 03/27/18 10:57 INR 3.3 (0.8-1.2) H 03/27/18 10:57 Sodium 136 mmol/L (135-145) 03/27/18 10:57 Potassium 3.8 mmol/L (3.5-5.0) 03/27/18 10:57 Chloride 100 mmol/L (101-111) L 03/27/18 10:57 Carbon Dioxide 28 mmol/L (21-32) 03/27/18 10:57 Anion Gap 8.0 (6-13) 03/27/18 10:57 BUN 11 mg/dL (6-20) 03/27/18 10:57 Creatinine 0.5 mg/dL (0.4-1.0) 03/27/18 10:57 Estimated GFR (MDRD) 121 (>89) 03/27/18 10:57 Glucose 119 mg/dL (70-100) H 03/27/18 10:57 Calcium 8.6 mg/dL (8.5-10.3) 03/27/18 10:57 Troponin I < 0.04 ng/mL (<0.49) 03/27/18 10:57 B-Natriuretic Peptide 398 pg/mL (5-100) H 03/27/18 10:57 Urine Color ORANGE 03/27/18 10:48 Urine Clarity CLEAR (CLEAR) 03/27/18 10:48 Urine pH 6.0 PH (5.0-7.5) 03/27/18 10:48 Ur Specific [place] 1.020 (1.002-1.030) 03/27/18 10:48 Urine Protein NEGATIVE mg/dL (NEGATIVE) 03/27/18 10:48 Urine Glucose (UA) NEGATIVE mg/dL (NEGATIVE) 03/27/18 10:48 Urine Ketones NEGATIVE mg/dL (NEGATIVE) 03/27/18 10:48 Urine Occult Blood NEGATIVE (NEGATIVE) 03/27/18 10:48 Urine Nitrite NEGATIVE (NEGATIVE) 03/27/18 10:48 Urine Bilirubin SMALL (NEGATIVE) H 03/27/18 10:48 Urine Urobilinogen 1 (NORMAL) E.U./dL (NORMAL) 03/27/18 10:48 Ur Leukocyte Esterase SMALL (NEGATIVE) H 03/27/18 10:48 Urine RBC None Seen /HPF (0-5) 03/27/18 10:48 Urine WBC 11-25 /HPF (0-5) H 03/27/18 10:48 Ur Squamous Epith Cells FEW Squamous (<= Few) 03/27/18 10:48 Urine Bacteria Moderate /HPF (None Seen) H 03/27/18 10:48 Urine Mucus Few Strands 03/27/18 10:48 Ur Microscopic Review INDICATED 03/27/18 10:48 Urine Culture Comments INDICATED 03/27/18 10:48 Infectious [place] Assay NEGATIVE (Negative) 03/27/18 10:57 - Diagnostic Imaging Results Diagnostic Imaging Results: positive: Final report reviewed Diagnostic Imaging Results Comments: Chest x-ray Impression: Right middle lobe infiltrate Core Measures - Anticipated LOS I expect patient to be DC'd or transferred within 96 hours.: Yes - DVT/VTE - Prophylaxis VTE/DVT Device ordered at admit?: Yes
[2018-03-27 15:58] LABS: ALBUMIN 2.7 g/dL (3.2-5.5); BILIRUBIN,DIRECT 0.7 mg/dL (0.1-0.5); BILIRUBIN,TOTAL 2.3 mg/dL (0.2-1.0); TOTAL PROTEIN 7.5 g/dL (6.7-8.2)
[2018-03-27] MEDS: SODIUM CHLORIDE 0.9% 1,000 ML IV SCH (16:20)
[2018-03-27] MEDS: AZITHROMYCIN INJ 500 MG in SODIUM CHLORIDE 0.9% 250 ML IV SCH (16:22)
[2018-03-27] MEDS: SODIUM CHLORIDE FLUSH 0.9% 10 ML SYRINGE IVP PRN (16:25)
[2018-03-27] MEDS: cefTRIAXone 2 GM in SODIUM CHLORIDE 0.9% MINIBAG 100 ML IV SCH (18:08)
[2018-03-27] MEDS: SODIUM CHLORIDE FLUSH 0.9% 10 ML SYRINGE IVP SCH (18:09)
[2018-03-27] MEDS: SACCHAROMYCES BOULARDII 250 MG CAPSULE PO SCH (18:21)
[2018-03-27] MEDS: traZODone 50 MG TABLET PO SCH (21:13)
[2018-03-27] MEDS: methylPREDNISolone SUCCINATE 40 MG/ML VIAL IVP SCH (21:14)
[2018-03-28] MEDS: SODIUM CHLORIDE FLUSH 0.9% 10 ML SYRINGE IVP SCH ×4 (01:03→23:52)
--- NOTE | 2018-03-28 03:31 | Ultrasound Report ---
Procedure Date: 03/27/2018 Accession Number: [id number] / [id number] Procedure: US - Abdomen Complete CPT Code: FULL RESULT: EXAM: ABDOMEN ULTRASOUND EXAM DATE: 03/27/2018 11:45 PM. CLINICAL HISTORY: Elevated bilirubin, ascites, r/o liver cirrhosis. COMPARISON: ABDOMEN/PELVIS W/ 03/23/2018 9:48 AM. TECHNIQUE: Real-time scanning was performed with static images obtained. FINDINGS: Liver: Diffuse heterogeneous hepatic echotexture is noted. There is also mild increased liver echogenicity. No definite suspicious hepatic focal mass demonstrated at this time. Nodular liver surface. 18.0 cm. Main portal vein flow: Hepatopetal. Gallbladder: Thickened gallbladder wall. Multiple gallstones. Biliary System: Common bile duct measures 5.0 mm. No intrahepatic or extrahepatic ductal dilatation. Pancreas: No definite suspicious mass. Mild increased echogenicity. Kidneys: Right: 12.1 cm longitudinally. Normal. No contour-deforming mass, stones, or hydronephrosis. Left: 14.6 cm longitudinally. Normal. No contour-deforming mass, stones, or hydronephrosis. Spleen: Enlarged, measuring 17.2 x 6.1 x 12.3 cm, 672 mL. Normal in size and echotexture. Aorta and Inferior Vena Cava: Unremarkable. Other: There is at least small volume ascites. IMPRESSION: 1. Severe diffuse heterogeneous echotexture of the liver parenchyma, with nodular liver surface. Combined findings are likely secondary to cirrhosis. 2. There is small volume ascites. 3. Moderate to severe splenomegaly. 4. Multiple gallstones. Partially contracted gallbladder. Wall thickening of the gallbladder is probably secondary to hepatocellular dysfunction and third spacing of fluid. No pathologic biliary dilation. 5. Nonspecific slight asymmetrically elongated size of the left kidney compared to the right. No hydronephrosis. RADIA
[2018-03-28] MEDS: SODIUM CHLORIDE 0.9% 1,000 ML IV SCH (03:34)
[2018-03-28] MEDS: methylPREDNISolone SUCCINATE 40 MG/ML VIAL IVP SCH ×3 (05:40→21:19)
[2018-03-28 06:57] LABS: ALBUMIN 2.3 g/dL (3.2-5.5); ALBUMIN/GLOBULIN RATIO 0.5 (1.0-2.2); ALKALINE PHOSPHATASE 156 IU/L (42-121); ALT ALANINE AMINOTRANSFERASE 35 IU/L (10-60); AST ASPARTATE AMINOTRANSFERASE 56 IU/L (10-42); BILIRUBIN,TOTAL 1.5 mg/dL (0.2-1.0); BUN - BLOOD UREA NITROGEN 12 mg/dL (6-20); CALCIUM 8.1 mg/dL (8.5-10.3); CARBON DIOXIDE - CO2 26 mmol/L (21-32); CHLORIDE 103 mmol/L (101-111); CREATININE 0.5 mg/dL (0.4-1.0); GFR - MDRD 121 (>89); GLUCOSE 175 mg/dL (70-100); PHOSPHORUS 2.9 mg/dL (2.5-4.6); SODIUM 136 mmol/L (135-145); TOTAL PROTEIN 6.5 g/dL (6.7-8.2)
[2018-03-28 06:58] LABS: BASOPHILS % (AUTO) 0.9 %; EOSINOPHILS % (AUTO) 0.9 %; HGB - HEMOGLOBIN 12.5 g/dL (12.0-16.0); LYMPHOCYTES % (AUTO) 2.3 %; MEAN CORPUSCULAR HGB CONC 32.2 g/dL (32.0-36.0); MEAN CORPUSCULAR VOLUME 96.3 fL (81.0-99.0); MEAN PLATELET VOLUME 8.9 fL (7.9-10.8); MONOCYTES % (AUTO) 2.8 %; NEUTROPHILS % (AUTO) 93.1 %; PLT - PLATELET COUNT 127 10^3/uL (130-450); RED BLOOD COUNT 4.05 10^6/uL (4.20-5.40); RED CELL DISTRIBUTION WIDTH 20.4 % (12.0-15.0)
[2018-03-28 07:02] LABS: WHITE BLOOD COUNT 38.3 x10^3/uL (4.8-10.8)
[2018-03-28 07:03] LABS: ABNORMAL LYMPHS % (MANUAL) 0 %
[2018-03-28 07:09] LABS: VBG PH 7.345 (7.31-7.41)
[2018-03-28 07:39] LABS: BAND NEUTROPHILS % (MANUAL) 47 %; BASOPHILS # (MANUAL) 0.4 10^3/uL (0-0.1); BASOPHILS % (MANUAL) 1 %; LYMPHOCYTES # (MANUAL) 1.1 10^3/uL (1.5-3.5); LYMPHOCYTES % (MANUAL) 3 %; MONOCYTES # (MANUAL) 1.1 10^3/uL (0.0-1.0); NEUTROPHILS # (MANUAL) 35.6 10^3/uL (1.5-6.6); NEUTROPHILS % (MANUAL) 46 %
[2018-03-28 07:40] LABS: DIFFERENTIAL COMMENT MANUAL DIFFERENTIAL; PLATELET ESTIMATE, MANUAL DECREASED (<130,000) (NORMAL)
[2018-03-28 08:22] LABS: INR 3.5 (0.8-1.2); PT - PROTHROMBIN TIME 37.7 secs (9.9-12.6)
[2018-03-28] MEDS: FAMOTIDINE 20 MG TABLET PO SCH (11:59)
[2018-03-28] MEDS: SACCHAROMYCES BOULARDII 250 MG CAPSULE PO SCH ×2 (11:59→17:15)
[2018-03-28] MEDS: AZITHROMYCIN INJ 500 MG in SODIUM CHLORIDE 0.9% 250 ML IV SCH (11:59)
[2018-03-28] MEDS: POLYETHYLENE GLYCOL 3350 17 GM PACKET PO SCH (12:00)
[2018-03-28] MEDS: guaiFENesin 600 MG TABLET PO SCH ×2 (12:34→21:19)
[2018-03-28] MEDS: cefTRIAXone 2 GM in SODIUM CHLORIDE 0.9% MINIBAG 100 ML IV SCH (13:38)
--- NOTE | 2018-03-28 19:12 | PROVIDER PROGRESS NOTE ---
Assessment/Plan - Problem List (1) CAP (community acquired pneumonia) Qualifiers: Laterality: right Lung location: middle lobe of lung Qualified Code(s): J18.1 - Lobar pneumonia, unspecified organism Assessment/Plan: Patient has had recurrent pneumonia for the last 9 months. Patient has had 3 previous episodes most recently in January that were all treated with Z-Herminio. She presented to the emergency department today with cough and shortness of breath. Patient was found to have right middle lobe pneumonia. On presentation patient was hypoxic and tachypneic with respiratory distress. The patient was found to have rhonchi and wheezing on examination. She did improve with albuterol treatment but given the hypoxia and recurrent pneumonias patient was hospitalized for treatment of community acquired pneumonia with IV antibiotics. Patient is improving today. She is down to 1L of O2. She states she feels less SOB with exertion. She states her cough it improving. Plan: Continue IV ceftriaxone and azithromycin day 2 Supplemental oxygen Albuterol nebs as needed IV Solu-Medrol Qualifiers: Laterality: right Lung location: middle lobe of lung Qualified Code(s): J18.1 - Lobar pneumonia, unspecified organism (2) Asthma exacerbation Conclusion/Plan: Patient has a history of asthma and appears to have a mild asthma exacerbation secondary to pneumonia. The patient does have some wheezing on examination and is hypoxic on presentation. The patient did improve with albuterol in the emergency department but continues to have some mild wheezing on exam. Improving Plan: Continue Albuterol nebs as needed Solu-Medrol IV 3 times daily Supplemental oxygen IV antibiotics for treatment of pneumonia Qualifiers: Asthma severity: mild Asthma persistence: intermittent Qualified Code(s) : J45.21 - Mild intermittent asthma with (acute) exacerbation (3) Liver Cirrhosis Conclusion/Plan: Patient has multiple sequela of liver cirrhosis including thrombocytopenia, elevated bilirubin, ascites and an elevated INR. She did have history of fatty liver disease and is only a social drinker. It appears that fatty liver disease has now progressed to cirrhosis as abdominal ultrasound is concerning for cirrhosis. Patient will need outpatient referral to GI or hepatology. We will place her on optimal treatment for her ascites with lasix and aldactone. She does not appear to have hepatic encephalopathy. She will be advised to abstain from alcohol use and to avoid tylenol. (4) Pulmonary Hypertension Conclusion/Plan: Preliminary echocardiogram shows pulmonary hypertension and possible right- sided heart failure. Patient is scheduled to see pulmonology as an outpatient. This would explain the patient's anasarca from right-sided heart failure. It is not clear as to what the cause of her pulmonary hypertension is at this point. This could also be causing liver congestion. (5) History of DVT (deep vein thrombosis) Conclusion/Plan: Patient has a history of DVT with Leiden factor V mutation and is on chronic Coumadin. The patient's INR on presentation is 3.3 and today it continues to be elevated at 3.5 The patient's Coumadin will be held again today and restarted once INR is in the therapeutic range. Elevated INR maybe a result of liver cirrhosis (6) Myeloproliferative neoplasm Conclusion/Plan: Patient has a history of myeloproliferative neoplasm with leukocytosis. The patient continues to have chronic leukocytosis with WBC being 33.5 on presentation. This is the highest leukocytosis that she has had. Patient was recently being worked up for abdominal discomfort and found to have splenomegaly which is chronic along with increasing retroperitoneal lymph nodes and ascites. I spoke with Dr. Sharp oncology who felt that patient's recent findings on CT were not suggestive of malignancy. She advised that the patient follow-up as an outpatient. She did not ask for a paracentesis or cytology of the ascitic fluid. - Current Meds Current Meds: Current Medications Generic Name Dose Route Start Last Admin Trade Name Freq PRN Reason Stop Dose Admin Hydrocodone Bitart/Acetaminophen 1 tab 03/27/18 13:02 03/28/18 12:46 [place] 5/325 PO 1 tab Q4HR PRN Administration Pain 5 to 7 Albuterol 2.5 mg 03/27/18 13:02 03/27/18 18:15 INH 2.5 mg Q4HR PRN Administration Wheezing Famotidine 20 mg 03/28/18 09:00 03/28/18 11:59 Pepcid PO 20 mg DAILY BEBE Administration Guaifenesin 600 mg 03/28/18 11:00 03/28/18 12:34 Mucinex PO 600 mg BID BEBE Administration Azithromycin 500 mg/ Sodium 250 mls @ 250 mls/hr 03/27/18 16:00 03/28/18 13: 27 Chloride IV Infused DAILY BEBE Infusion Ceftriaxone Sodium 2 gm/ 100 mls @ 200 mls/hr 03/27/18 16:00 03/28/18 13:39 Sodium Chloride IV Infused DAILY BEBE Infusion Methylprednisolone 40 mg 03/27/18 22:00 03/28/18 14:00 Solu-Medrol (40mg Vial) IVP 40 mg TID BEBE Administration Polyethylene Glycol 17 gm 03/28/18 09:00 03/28/18 12:00 Miralax PO Not Given DAILY BEBE Saccharomyces Boulardii 250 mg 03/27/18 17:00 03/28/18 17:15 Florastor PO 250 mg BIDWM BEBE Administration Sodium Chloride 10 ml 03/27/18 13:02 03/27/18 16:25 Normal Saline Flush 0.9% IVP 10 ml PRN PRN Administration NEEDED PER PROVIDER ORDERS Sodium Chloride 10 ml 03/27/18 17:00 03/28/18 17:11 Normal Saline Flush 0.9% IVP 10 ml 0100,0900,1700 BEBE Administration Trazodone HCl 50 mg 03/27/18 21:00 03/27/18 21:13 Desyrel PO 50 mg QPM BEBE Administration - Lab Result Lab results reviewed: Yes Fish Bone Diagrams: 03/29/18 05:25 03/29/18 05:25 - Diagnostic Imaging Results Diagnostic Imaging Results: Final report reviewed - Additional Planning Condition/Complexity: Guarded My Orders: My Active Orders 03/28/18 06:02 HEPATITIS ACUTE PANEL W CONF [REFLAB] DAILYLAB 03/28/18 08:00 Echo Transthoracic Complete [ECHO] Routine 03/28/18 11:00 guaiFENesin [Mucinex] 600 mg PO BID 03/29/18 05:00 CMP, RFLX TO IONIZED CA IF [CHEM] DAILYLAB MAGNESIUM [CHEM] DAILYLAB PHOSPHORUS [CHEM] DAILYLAB PT WITH INR [COAG] DAILYLAB 03/30/18 05:00 CMP, RFLX TO IONIZED CA IF [CHEM] DAILYLAB MAGNESIUM [CHEM] DAILYLAB PHOSPHORUS [CHEM] DAILYLAB PT WITH INR [COAG] DAILYLAB 03/31/18 05:00 CMP, RFLX TO IONIZED CA IF [CHEM] DAILYLAB MAGNESIUM [CHEM] DAILYLAB PHOSPHORUS [CHEM] DAILYLAB PT WITH INR [COAG] DAILYLAB 04/01/18 05:00 PT WITH INR [COAG] DAILYLAB 04/02/18 05:00 PT WITH INR [COAG] DAILYLAB Plan Discussed with:: Patient Time Spent: 31-60 minutes Subjective - Subjective Patient Reports: Feeling Better, Resting Comfortably, Cough (Improving), Fatigue (improving), Shortness of Breath (improving with exertion) Nursing Reports: No Complaints Objective Vital Signs: Vital Signs - 24 hr 03/27/18 03/28/18 03/28/18 23:55 08:00 15:50 Temperature 36.9 C 36.9 C 36.5 C Heart Rate [ 73 73 69 Brachial] Respiratory 18 18 16 Rate Blood Pressure 126/59 L 130/67 129/66 [Right Brachial artery] O2 Saturation 97 95 95 Oxygen O2 Source Nasal cannula I&O (Last 24 Hrs): Intake and Output Totals x24h 03/26/18 03/27/18 03/28/18 23:59 23:59 23:59 Intake Total 650 3126 Balance 650 3126 General: Alert, Oriented x3, Cooperative, No acute distress, Other (Obese) HEENT: Atraumatic, PERRLA, EOMI, Mucous membr. moist/pink Neck: Supple, No JVD, No thyromegaly, +2 carotid pulse wo bruit, No LAD Lymphatic: no adenopathy Neuro: Alert, Non Focal, CN 2-12 Grossly Intact, Oriented Times 3 Cardiovascular: Regular rate, Normal S1, Normal S2, No murmurs Respiratory: No respiratory distress, Wheezes, Rhonchi Abdomen: Normal bowel sounds, Soft, No tenderness, No hepatospenomegaly Extremities: No clubbing, No cyanosis, Normal pulses, Other (BIlateral LE edema) Skin: No rashes, No breakdown - Results Results: Laboratory Results WBC 38.3 x10^3/uL (4.8-10.8) H* 03/28/18 06:02 RBC 4.05 10^6/uL (4.20-5.40) L 03/28/18 06:02 Hgb 12.5 g/dL (12.0-16.0) 03/28/18 06:02 Hct 39.0 % (37.0-47.0) 03/28/18 06:02 MCV 96.3 fL (81.0-99.0) 03/28/18 06:02 MCH 31.0 pg (27.0-31.0) 03/28/18 06:02 MCHC 32.2 g/dL (32.0-36.0) 03/28/18 06:02 RDW 20.4 % (12.0-15.0) H 03/28/18 06:02 Plt Count 127 10^3/uL (130-450) L 03/28/18 06:02 MPV 8.9 fL (7.9-10.8) 03/28/18 06:02 Neut # (Auto) Not Reportable 03/28/18 06:02 Lymph # (Auto) Not Reportable 03/28/18 06:02 Cotton # (Auto) Not Reportable 03/28/18 06:02 Eos # (Auto) Not Reportable 03/28/18 06:02 Baso # (Auto) Not Reportable 03/28/18 06:02 Absolute Nucleated RBC Not Reportable 03/28/18 06:02 Total Counted 100 03/28/18 06:02 Band Neuts % (Manual) 47 % (0-10) H 03/28/18 06:02 Abnorm Lymph % (Manual) 0 % 03/28/18 06:02 Metamyelocytes % 1 % (-0) H 03/27/18 10:57 Nucleated RBC % Not Reportable 03/28/18 06:02 Neutrophils # (Manual) 35.6 10^3/uL (1.5-6.6) H 03/28/18 06:02 Lymphocytes # (Manual) 1.1 10^3/uL (1.5-3.5) L 03/28/18 06:02 Monocytes # (Manual) 1.1 10^3/uL (0.0-1.0) H 03/28/18 06:02 Eosinophils # (Manual) 0.0 10^3/uL (0-0.7) 03/28/18 06:02 Basophils # (Manual) 0.4 10^3/uL (0-0.1) H 03/28/18 06:02 Differential Comment MANUAL DIFFERENTIAL 03/28/18 06:02 Manual Slide Review Indicated 03/27/18 10:57 Platelet Estimate DECREASED (<130,000) (NORMAL) 03/28/18 06:02 Platelet Morphology NORMAL APPEARANCE (NORMAL) 03/27/18 10:57 RBC Morph Micro Appear 1+ ANISOCYTOSIS (NORMAL) 1+ OVALOCYTES (NORMAL) 1+ HYPOCHROMASIA (NORMAL) 03/28/18 06:02 RBC Morph Micro Appear 1+ ANISOCYTOSIS (NORMAL) 1+ OVALOCYTES (NORMAL) 1+ HYPOCHROMASIA (NORMAL) 03/28/18 06:02 RBC Morph Micro Appear 1+ ANISOCYTOSIS (NORMAL) 1+ OVALOCYTES (NORMAL) 1+ HYPOCHROMASIA (NORMAL) 03/28/18 06:02 PT 37.7 secs (9.9-12.6) H 03/28/18 07:55 INR 3.5 (0.8-1.2) H 03/28/18 07:55 VBG pH 7.345 (7.31-7.41) 03/28/18 06:02 Ionized Calcium 1.13 mmol/L (1.15-1.33) L 03/28/18 06:02 Sodium 136 mmol/L (135-145) 03/28/18 06:02 Potassium 3.8 mmol/L (3.5-5.0) 03/28/18 06:02 Chloride 103 mmol/L (101-111) 03/28/18 06:02 Carbon Dioxide 26 mmol/L (21-32) 03/28/18 06:02 Anion Gap 7.0 (6-13) 03/28/18 06:02 BUN 12 mg/dL (6-20) 03/28/18 06:02 Creatinine 0.5 mg/dL (0.4-1.0) 03/28/18 06:02 Estimated GFR (MDRD) 121 (>89) 03/28/18 06:02 Glucose 175 mg/dL (70-100) H 03/28/18 06:02 Calcium 8.1 mg/dL (8.5-10.3) L 03/28/18 06:02 Ionized Calcium YES 03/28/18 06:02 Phosphorus 2.9 mg/dL (2.5-4.6) 03/28/18 06:02 Magnesium 2.0 mg/dL (1.7-2.8) 03/28/18 06:02 Total Bilirubin 1.5 mg/dL (0.2-1.0) H 03/28/18 06:02 Direct Bilirubin 0.7 mg/dL (0.1-0.5) H 03/27/18 10:57 AST 56 IU/L (10-42) H 03/28/18 06:02 ALT 35 IU/L (10-60) 03/28/18 06:02 Alkaline Phosphatase 156 IU/L (42-121) H 03/28/18 06:02 Troponin I < 0.04 ng/mL (<0.49) 03/27/18 10:57 B-Natriuretic Peptide 398 pg/mL (5-100) H 03/27/18 10:57 Total Protein 6.5 g/dL (6.7-8.2) L 03/28/18 06:02 Albumin 2.3 g/dL (3.2-5.5) L 03/28/18 06:02 Globulin 4.2 g/dL (2.1-4.2) 03/28/18 06:02 Albumin/Globulin Ratio 0.5 (1.0-2.2) L 03/28/18 06:02 Urine Color ORANGE 03/27/18 10:48 Urine Clarity CLEAR (CLEAR) 03/27/18 10:48 Urine pH 6.0 PH (5.0-7.5) 03/27/18 10:48 Ur Specific [place] 1.020 (1.002-1.030) 03/27/18 10:48 Urine Protein NEGATIVE mg/dL (NEGATIVE) 03/27/18 10:48 Urine Glucose (UA) NEGATIVE mg/dL (NEGATIVE) 03/27/18 10:48 Urine Ketones NEGATIVE mg/dL (NEGATIVE) 03/27/18 10:48 Urine Occult Blood NEGATIVE (NEGATIVE) 03/27/18 10:48 Urine Nitrite NEGATIVE (NEGATIVE) 03/27/18 10:48 Urine Bilirubin SMALL (NEGATIVE) H 03/27/18 10:48 Urine Urobilinogen 1 (NORMAL) E.U./dL (NORMAL) 03/27/18 10:48 Ur Leukocyte Esterase SMALL (NEGATIVE) H 03/27/18 10:48 Urine RBC None Seen /HPF (0-5) 03/27/18 10:48 Urine WBC 11-25 /HPF (0-5) H 03/27/18 10:48 Ur Squamous Epith Cells FEW Squamous (<= Few) 03/27/18 10:48 Urine Bacteria Moderate /HPF (None Seen) H 03/27/18 10:48 Urine Mucus Few Strands 03/27/18 10:48 Ur Microscopic Review INDICATED 03/27/18 10:48 Urine Culture Comments INDICATED 03/27/18 10:48 Infectious Cotton Assay NEGATIVE (Negative) 03/27/18 10:57 ABX Reporting Has patient been on IV antibiotics over the past 48 hours?: No Current Medications - Current Medications Current Medications: Laboratory Results WBC 40.9 x10^3/uL (4.8-10.8) H* 03/29/18 05:25 RBC 4.18 10^6/uL (4.20-5.40) L 03/29/18 05:25 Hgb 12.9 g/dL (12.0-16.0) 03/29/18 05:25 Hct 40.0 % (37.0-47.0) 03/29/18 05:25 MCV 95.6 fL (81.0-99.0) 03/29/18 05:25 MCH 30.7 pg (27.0-31.0) 03/29/18 05:25 MCHC 32.2 g/dL (32.0-36.0) 03/29/18 05:25 RDW 20.4 % (12.0-15.0) H 03/29/18 05:25 Plt Count 148 10^3/uL (130-450) 03/29/18 05:25 MPV 9.6 fL (7.9-10.8) 03/29/18 05:25 Neut # (Auto) Not Reportable 03/29/18 05:25 Lymph # (Auto) Not Reportable 03/29/18 05:25 Cotton # (Auto) Not Reportable 03/29/18 05:25 Eos # (Auto) Not Reportable 03/29/18 05:25 Baso # (Auto) Not Reportable 03/29/18 05:25 Absolute Nucleated RBC Not Reportable 03/29/18 05:25 Total Counted 100 03/29/18 05:25 Band Neuts % (Manual) 33 % (0-10) H 03/29/18 05:25 Abnorm Lymph % (Manual) 0 % 03/29/18 05:25 Metamyelocytes % 1 % (-0) H 03/27/18 10:57 Nucleated RBC % Not Reportable 03/29/18 05:25 Neutrophils # (Manual) 36.4 10^3/uL (1.5-6.6) H 03/29/18 05:25 Lymphocytes # (Manual) 1.2 10^3/uL (1.5-3.5) L 03/29/18 05:25 Monocytes # (Manual) 2.5 10^3/uL (0.0-1.0) H 03/29/18 05:25 Eosinophils # (Manual) 0.4 10^3/uL (0-0.7) 03/29/18 05:25 Basophils # (Manual) 0.4 10^3/uL (0-0.1) H 03/29/18 05:25 Differential Comment MANUAL DIFFERENTIAL 03/29/18 05:25 Manual Slide Review Indicated 03/27/18 10:57 Platelet Estimate NORMAL (130-450,000) (NORMAL) 03/29/18 05:25 Platelet Morphology NORMAL APPEARANCE (NORMAL) 03/27/18 10:57 RBC Morph Micro Appear 1+ ANISOCYTOSIS (NORMAL) 1+ OVALOCYTES (NORMAL) 1+ HYPOCHROMASIA (NORMAL) 03/28/18 06:02 RBC Morph Micro Appear 1+ ANISOCYTOSIS (NORMAL) 1+ OVALOCYTES (NORMAL) 1+ HYPOCHROMASIA (NORMAL) 03/28/18 06:02 RBC Morph Micro Appear 1+ ANISOCYTOSIS (NORMAL) 1+ HYPOCHROMASIA (NORMAL) 1+ OVALOCYTES (NORMAL) 03/29/18 05:25 RBC Morph Micro Appear 1+ ANISOCYTOSIS (NORMAL) 1+ HYPOCHROMASIA (NORMAL) 1+ OVALOCYTES (NORMAL) 03/29/18 05:25 RBC Morph Micro Appear 1+ ANISOCYTOSIS (NORMAL) 1+ HYPOCHROMASIA (NORMAL) 1+ OVALOCYTES (NORMAL) 03/29/18 05:25 PT 38.0 secs (9.9-12.6) H 03/29/18 05:25 INR 3.5 (0.8-1.2) H 03/29/18 05:25 VBG pH 7.338 (7.31-7.41) 03/29/18 05:25 Ionized Calcium 1.16 mmol/L (1.15-1.33) 03/29/18 05:25 Sodium 134 mmol/L (135-145) L 03/29/18 05:25 Potassium 4.1 mmol/L (3.5-5.0) 03/29/18 05:25 Chloride 103 mmol/L (101-111) 03/29/18 05:25 Carbon Dioxide 25 mmol/L (21-32) 03/29/18 05:25 Anion Gap 6.0 (6-13) 03/29/18 05:25 BUN 14 mg/dL (6-20) 03/29/18 05:25 Creatinine 0.3 mg/dL (0.4-1.0) L 03/29/18 05:25 Estimated GFR (MDRD) 219 (>89) 03/29/18 05:25 Glucose 132 mg/dL (70-100) H 03/29/18 05:25 Calcium 8.3 mg/dL (8.5-10.3) L 03/29/18 05:25 Ionized Calcium YES 03/29/18 05:25 Phosphorus 3.0 mg/dL (2.5-4.6) 03/29/18 05:25 Magnesium 2.0 mg/dL (1.7-2.8) 03/29/18 05:25 Total Bilirubin 1.7 mg/dL (0.2-1.0) H 03/29/18 05:25 Direct Bilirubin 0.7 mg/dL (0.1-0.5) H 03/27/18 10:57 AST 51 IU/L (10-42) H 03/29/18 05:25 ALT 36 IU/L (10-60) 03/29/18 05:25 Alkaline Phosphatase 152 IU/L (42-121) H 03/29/18 05:25 Troponin I < 0.04 ng/mL (<0.49) 03/27/18 10:57 B-Natriuretic Peptide 398 pg/mL (5-100) H 03/27/18 10:57 Total Protein 6.7 g/dL (6.7-8.2) 03/29/18 05:25 Albumin 2.2 g/dL (3.2-5.5) L 03/29/18 05:25 Globulin 4.5 g/dL (2.1-4.2) H 03/29/18 05:25 Albumin/Globulin Ratio 0.5 (1.0-2.2) L 03/29/18 05:25 Urine Color ORANGE 03/27/18 10:48 Urine Clarity CLEAR (CLEAR) 03/27/18 10:48 Urine pH 6.0 PH (5.0-7.5) 03/27/18 10:48 Ur Specific [place] 1.020 (1.002-1.030) 03/27/18 10:48 Urine Protein NEGATIVE mg/dL (NEGATIVE) 03/27/18 10:48 Urine Glucose (UA) NEGATIVE mg/dL (NEGATIVE) 03/27/18 10:48 Urine Ketones NEGATIVE mg/dL (NEGATIVE) 03/27/18 10:48 Urine Occult Blood NEGATIVE (NEGATIVE) 03/27/18 10:48 Urine Nitrite NEGATIVE (NEGATIVE) 03/27/18 10:48 Urine Bilirubin SMALL (NEGATIVE) H 03/27/18 10:48 Urine Urobilinogen 1 (NORMAL) E.U./dL (NORMAL) 03/27/18 10:48 Ur Leukocyte Esterase SMALL (NEGATIVE) H 03/27/18 10:48 Urine RBC None Seen /HPF (0-5) 03/27/18 10:48 Urine WBC 11-25 /HPF (0-5) H 03/27/18 10:48 Ur Squamous Epith Cells FEW Squamous (<= Few) 03/27/18 10:48 Urine Bacteria Moderate /HPF (None Seen) H 03/27/18 10:48 Urine Mucus Few Strands 03/27/18 10:48 Ur Microscopic Review INDICATED 03/27/18 10:48 Urine Culture Comments INDICATED 03/27/18 10:48 Infectious Cotton Assay NEGATIVE (Negative) 03/27/18 10:57 Active Medications Generic Name Dose Route Start Last Admin Trade Name Freq PRN Reason Stop Dose Admin Acetaminophen 650 mg 03/27/18 13:02 Tylenol PO Q4HR PRN Pain 1 to 4 Hydrocodone Bitart/Acetaminophen 1 tab 03/27/18 13:02 03/28/18 12:46 [place] 5/325 PO 1 tab Q4HR PRN Administration Pain 5 to 7 Hydrocodone Bitart/Acetaminophen 1 tab 03/27/18 13:02 [place] 10 Mg/325 Mg PO Q4HR PRN Pain 8 to 10 Albuterol 2.5 mg 03/27/18 13:02 03/27/18 18:15 INH 2.5 mg Q4HR PRN Administration Wheezing Famotidine 20 mg 03/28/18 09:00 03/29/18 08:10 Pepcid PO 20 mg DAILY BEBE Administration Guaifenesin 600 mg 03/28/18 11:00 03/28/18 21:19 Mucinex PO 600 mg BID BEBE Administration Azithromycin 500 mg/ Sodium 250 mls @ 250 mls/hr 03/27/18 16:00 03/29/18 08: 10 Chloride IV 250 mls/hr DAILY BEBE Administration Ceftriaxone Sodium 2 gm/ 100 mls @ 200 mls/hr 03/27/18 16:00 03/28/18 13:39 Sodium Chloride IV Infused DAILY BEBE Infusion Methylprednisolone 40 mg 03/27/18 22:00 03/29/18 06:51 Solu-Medrol (40mg Vial) IVP 40 mg TID BEBE Administration Ondansetron HCl 4 mg 03/27/18 13:02 Zofran Inj IVP Q6HR PRN Nausea / Vomiting Polyethylene Glycol 17 gm 03/28/18 09:00 03/29/18 08:11 Miralax PO 17 gm DAILY BEBE Administration Prochlorperazine Edisylate 10 mg 03/27/18 13:02 Compazine Inj IVP Q6HR PRN Nausea / Vomiting Saccharomyces Boulardii 250 mg 03/27/18 17:00 03/29/18 08:10 Florastor PO 250 mg BIDWM BEBE Administration Sodium Chloride 10 ml 03/27/18 13:02 03/29/18 06:51 Normal Saline Flush 0.9% IVP 10 ml PRN PRN Administration NEEDED PER PROVIDER ORDERS Sodium Chloride 10 ml 03/27/18 17:00 03/29/18 08:11 Normal Saline Flush 0.9% IVP 10 ml 0100,0900,1700 BEBE Administration Trazodone HCl 50 mg 03/27/18 21:00 03/28/18 21:19 Desyrel PO Not Given QPM BEBE Warfarin Sodium 5 mg 03/28/18 21:00 03/28/18 21:22 Coumadin PO 5 mg QPM BEBE Administration Zolpidem Tartrate 5 mg 03/27/18 13:02 03/28/18 23:42 Ambien PO 5 mg QPM PRN Administration Insomnia Warfarin [Coumadin] 5 mg PO SUMOTUWETHSA@2100 03/14/17 Calcium Carbonate/Vitamin D3 [Calcium 250-Vit D3 125 Tablet] 1 tab PO DAILY traZODone [Desyrel] 50 mg PO QPM 07/11/17 Furosemide [Lasix] 20 mg PO DAILY 10/31/17 Albuterol Sulfate [Proair Hfa Inhaler] 2 puffs INH Q4H PRN 03/27/18 Fluticasone [Flonase] 2 sprays DEBI DAILY 03/27/18 Fluticasone/Salmeterol [Advair 250-50 Diskus] 1 puffs INH BID 03/27/18 Warfarin [Coumadin] 10 mg PO FR@2100 03/27/18
[2018-03-28] MEDS ORDERED: WARFARIN 5 MG TABLET PO SCH (21:00)
[2018-03-28] MEDS: traZODone 50 MG TABLET PO SCH (21:19)
[2018-03-29 06:15] LABS: INR 3.5 (0.8-1.2)
[2018-03-29 06:16] LABS: BASOPHILS % (AUTO) 0.5 %; EOSINOPHILS % (AUTO) 0.1 %; HGB - HEMOGLOBIN 12.9 g/dL (12.0-16.0); LYMPHOCYTES % (AUTO) 1.7 %; MEAN CORPUSCULAR HEMOGLOBIN 30.7 pg (27.0-31.0); MEAN CORPUSCULAR HGB CONC 32.2 g/dL (32.0-36.0); MEAN CORPUSCULAR VOLUME 95.6 fL (81.0-99.0); MEAN PLATELET VOLUME 9.6 fL (7.9-10.8); MONOCYTES % (AUTO) 2.7 %; PLT - PLATELET COUNT 148 10^3/uL (130-450); RED BLOOD COUNT 4.18 10^6/uL (4.20-5.40); RED CELL DISTRIBUTION WIDTH 20.4 % (12.0-15.0)
[2018-03-29 06:24] LABS: ALBUMIN 2.2 g/dL (3.2-5.5); ALBUMIN/GLOBULIN RATIO 0.5 (1.0-2.2); ALKALINE PHOSPHATASE 152 IU/L (42-121); ALT ALANINE AMINOTRANSFERASE 36 IU/L (10-60); AST ASPARTATE AMINOTRANSFERASE 51 IU/L (10-42); BILIRUBIN,TOTAL 1.7 mg/dL (0.2-1.0); BUN - BLOOD UREA NITROGEN 14 mg/dL (6-20); CALCIUM 8.3 mg/dL (8.5-10.3); CARBON DIOXIDE - CO2 25 mmol/L (21-32); CHLORIDE 103 mmol/L (101-111); CREATININE 0.3 mg/dL (0.4-1.0); GFR - MDRD 219 (>89); GLUCOSE 132 mg/dL (70-100); SODIUM 134 mmol/L (135-145); TOTAL PROTEIN 6.7 g/dL (6.7-8.2)
[2018-03-29 06:30] LABS: WHITE BLOOD COUNT 40.9 x10^3/uL (4.8-10.8)
[2018-03-29 06:31] LABS: ABNORMAL LYMPHS % (MANUAL) 0 %
[2018-03-29 06:41] LABS: VBG PH 7.338 (7.31-7.41)
[2018-03-29 06:50] LABS: BAND NEUTROPHILS % (MANUAL) 33 %; BASOPHILS # (MANUAL) 0.4 10^3/uL (0-0.1); BASOPHILS % (MANUAL) 1 %; DIFFERENTIAL COMMENT MANUAL DIFFERENTIAL; EOSINOPHILS # (MANUAL) 0.4 10^3/uL (0-0.7); LYMPHOCYTES # (MANUAL) 1.2 10^3/uL (1.5-3.5); LYMPHOCYTES % (MANUAL) 3 %; MONOCYTES # (MANUAL) 2.5 10^3/uL (0.0-1.0); NEUTROPHILS # (MANUAL) 36.4 10^3/uL (1.5-6.6); NEUTROPHILS % (MANUAL) 56 %; PLATELET ESTIMATE, MANUAL NORMAL (130-450,000) (NORMAL)
[2018-03-29] MEDS: methylPREDNISolone SUCCINATE 40 MG/ML VIAL IVP SCH (06:51)
[2018-03-29] MEDS: SODIUM CHLORIDE FLUSH 0.9% 10 ML SYRINGE IVP PRN (06:51)
[2018-03-29 07:42] VITALS: BP 155/70
[2018-03-29] MEDS: SACCHAROMYCES BOULARDII 250 MG CAPSULE PO SCH (08:10)
[2018-03-29] MEDS: AZITHROMYCIN INJ 500 MG in SODIUM CHLORIDE 0.9% 250 ML IV SCH (08:10)
[2018-03-29] MEDS: FAMOTIDINE 20 MG TABLET PO SCH (08:10)
[2018-03-29] MEDS: SODIUM CHLORIDE FLUSH 0.9% 10 ML SYRINGE IVP SCH (08:11)
[2018-03-29] MEDS: POLYETHYLENE GLYCOL 3350 17 GM PACKET PO SCH (08:11)
[2018-03-29] MEDS: cefTRIAXone 2 GM in SODIUM CHLORIDE 0.9% MINIBAG 100 ML IV SCH (09:26)
[2018-03-29] MEDS: guaiFENesin 600 MG TABLET PO SCH (09:27)
--- NOTE | 2018-03-29 12:01 | Discharge Plan ---
Discharge Plan Disposition: 01 Home, Self Care Condition: Fair Prescriptions: Amox/Clav 875/125 [Augmentin] 1 each PO Q12H #22 tablet Furosemide [Lasix] 20 mg PO DAILY #30 tablet Omeprazole 20 mg PO DAILY #30 tablet. Spironolactone [Aldactone] 12.5 mg PO DAILY #30 tablet Diet: Low Sodium Activity Restrictions: Activity as Tolerated Shower Restrictions: No Driving Restrictions: No Weight Bearing: Full Weight Additional Instructions or Follow Up instructions: You presented to our emergency department with cough, shortness of breath and generalized weakness. You are found to have a right middle lobe pneumonia. He was started on treatment with IV antibiotics and improved significantly over the last 3 days. You were able to be weaned off of oxygen and no require oxygen. He will continue treatment for pneumonia with oral antibiotics for an additional 11 days to complete 2 weeks of treatment. You have been having recurrent pneumonia therefore we feel it is important for you to get a longer course of antibiotics. Also during this hospitalization we found that you have cirrhosis of your liver likely this is a progression from fatty liver disease. You had ascites and had been started on Lasix and Aldactone which she should take daily to reduce swelling and ascites. You were also found to have pulmonary hypertension and right-sided heart failure on an echocardiogram. He will need to follow-up with a yard person and career development coordinator through your primary care physician. Please refrain from drinking alcohol and limit your use of Tylenol. No Smoking: If you smoke, Please STOP! Call for help. Follow-up with: Josy Cooley MD [Primary Care Provider] -
[2018-03-29 13:25] LABS: HEPATITIS A IGM NON-REACTIVE (NON-REACTIVE); HEPATITIS B CORE ANTIBODY IGM NON-REACTIVE (NON-REACTIVE); HEPATITIS B SURFACE ANTIGEN NON-REACTIVE (NON-REACTIVE); HEPATITIS C ANTIBODY NON-REACTIVE (NON-REACTIVE)
--- NOTE | 2018-03-29 14:21 | DISCHARGE SUMMARY ---
Discharge Summary Admit Date: 03/27/18 Discharge Date: 03/29/18 Discharging Provider: Damaso Bolivar MD Primary Care Provider: Josy Cooley MD Code Status: Attempt Resuscitation Condition at Discharge: Fair Discharge Disposition: 01 Home, Self Care - DIAGNOSES Admission Diagnoses: 1. Community acquired pneumonia 2. Asthma exacerbation 3. History of DVT 4. Myeloproliferative neoplasm 5. Ascites Discharge Diagnoses with Status of Each Condition: 1. Community acquired pneumonia: Improving 2. Asthma exacerbation: Improving 3. Liver cirrhosis: Stable 4. Coronary hypertension: Stable 5. History of DVT: Stable 6. 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 The patient states that she has had 3 episodes of pneumonia since June 2017. She states that she has been treated with Z-Herminio all 3 times. She states her most recent episode was in January 2018. She states that she seems to be better for short period of time but then has recurrence of the pneumonia. She states that she was getting further workup regarding this recurrent symptoms with an special education resource room teacher just 4 days ago and was started on oral steroids. She states that over the last 2 days she has had increasing cough and this morning she became very short of breath just at rest. She states that she could not even talk she was so short of breath. She denies any fevers or chills but states that she had a long coughing episode prior to the shortness of breath this morning. She does admit to having a chronic cough but states it has been worse the last 2 days. She states that she was in significant respiratory distress when she finally decided to come to the emergency department. The patient also states that she has been having some abdominal discomfort and abdominal distention over the last few months. She states that she saw her primary care physician regarding the symptoms and underwent a CT of her abdomen and pelvis. The patient was found to have splenomegaly which was old, along with developing ascites and increased retroperitoneal lymph nodes on the CT scan. The patient was scheduled to see her oncologist today but came to the emergency department. The patient has also been following up with surgery regarding gallstones and is scheduled to get a HIDA scan tomorrow. Regarding the patient's cough and recurrent pneumonia she also has an appointment with pulmonology in April. The patient denies any chest pain, orthopnea, PND but does admit to increased lower extremity swelling. The patient states that she had been dieting and exercising and had lost 60 pounds. She states that over the last few weeks she has gained a lot of weight. She also states that she has become increasingly swollen her abdomen as well as in her legs. Patient otherwise denies any headaches, blurred vision, runny nose, sore throat , nasal congestion, difficulty swallowing, palpitations, nausea, vomiting, diarrhea, constipation, joint pain, muscle aches, back pain, neck stiffness, change in appetite, hair loss, skin rashes, polyuria, polydipsia, night sweats or any focal neurologic deficits. On presentation to the emergency department the patient was afebrile, mildly tachycardic with a heart rate of 96, hypertensive and hypoxic down to 85% on room air. The patient was placed on 3 L of oxygen and oxygen saturation improved to 92%. While the patient was in the emergency department she was tachypneic with respiratory rate up to 34. The patient did appear to be in mild to moderate respiratory distress when she appeared in the emergency department. The patient was treated in the emergency department with Decadron and albuterol. The patient did have some mild improvement but remained hypoxic. The patient's chest x-ray showed a right middle lobe pneumonia and given her failure with outpatient treatment in the past she was admitted for IV antibiotics. The patient did have a leukocytosis of 33.5 however given her myeloproliferative disorder this was near her chronic range. The patient did have small leukocyte esterase with 11-25 WBCs and bacteria on her urine analysis. The patient's BNP was slightly elevated at 398 and troponin was negative. The patient's INR was mildly elevated at 3.3. The patient's LFTs were not checked in the emergency department. - HOSPITAL COURSE Hospital Course: Patient was admitted for treatment of community-acquired pneumonia. She received IV ceftriaxone and azithromycin for 3 days and had significant improvement was able to be weaned off of oxygen. The patient was also treated for asthma exacerbation and had significant improvement with resolution of wheezing. The patient was discharged home on prednisone which she will continue for an additional 7 days. We did not give patient a prednisone prescription as she already had previous prescription from her special education resource room teacher. The patient was found to have cirrhosis of her liver on abdominal ultrasound. She did have a mild elevation in her bilirubin up to 2.3 and mildly elevated LFTs. The patient also had some thrombocytopenia and ascites. The patient was started on oral Lasix and Aldactone for her ascites and fluid overload from the liver cirrhosis. The patient was advised to abstain from drinking alcohol and told to limit her Tylenol intake. The patient likely has developed cirrhosis from fatty liver. The patient was also found to have pulmonary hypertension but does not require any oxygen at discharge. The patient is going to follow- up with a casing crew pusher as well as a pathologist. The patient will also follow- up with her primary care physician. She will receive 11 days of treatment for her pneumonia with Augmentin. She is also going to follow-up with her oncologist in regards to her myeloproliferative disorder. - ALLERGIES Allergies/Adverse Reactions: Allergies Allergy/AdvReac Type Severity Reaction Status Date / Time No Known Drug Allergies Allergy Verified 03/27/18 10:40 - MEDICATIONS Home Medications: Ambulatory Orders Medication Instructions Recorded Confirmed Warfarin [Coumadin] 5 mg PO [id number]/14/17 03/27/18 Calcium Carbonate/Vitamin D3 1 tab PO DAILY 07/11/17 03/27/18 [Calcium 250-Vit D3 125 Tablet] traZODone [Desyrel] 50 mg PO QPM 07/11/17 03/27/18 Albuterol Sulfate [Proair Hfa 2 puffs INH Q4H PRN 03/27/18 03/27/18 Inhaler] Fluticasone [Flonase] 2 sprays DEBI DAILY 03/27/18 03/27/18 Fluticasone/Salmeterol [Advair 1 puffs INH BID 03/27/18 03/27/18 250-50 Diskus] Warfarin [Coumadin] 10 mg PO FR@2100 03/27/18 03/27/18 Amox/Clav 875/125 [Augmentin] 1 each PO Q12H #22 tablet 03/29/18 Furosemide [Lasix] 20 mg PO DAILY #30 tablet 03/29/18 Omeprazole 20 mg PO DAILY #30 tablet. 03/29/18 Spironolactone [Aldactone] 12.5 mg PO DAILY #30 tablet 03/29/18 - PHYSICAL EXAM AT DISCHARGE General Appearance: positive: No acute distress, Alert Eyes Bilateral: positive: Normal inspection, PERRL, EOMI, No lid inflammation, Conjunctivae nml, No scleral icterus ENT: positive: ENT inspection nml, Pharynx nml, No signs of dehydration. negative: Purulent nasal drainage, Pharyngeal erythema, Oral lesions Neck: positive: Nml inspection, Thyroid nml, No JVD, Trachea midline. negative : Thyromegaly, Lymphadenopathy (R), Lymphadenopathy (L), Stiff neck, Carotid bruit, Tracheal deviation Respiratory: positive: Chest non-tender, No respiratory distress, Rhonchi ( right lung) Cardiovascular: positive: Regular rate & rhythm, No murmur, No gallop Peripheral Pulses: positive: 2+ Abdomen: positive: Non-tender, No organomegaly, Nml bowel sounds, No distention. negative: Guarding, Rebound, Hepatomegaly Back: positive: Nml inspection. negative: CVA tenderness (R), CVA tenderness (L ) Skin: positive: Dry. negative: Cyanosis, Diaphoresis, Pallor Extremities: positive: Non-tender, Full ROM, Nml appearance, Pedal edema Neurologic/Psychiatric: positive: Oriented x3, CN's nml (2-12), Motor nml, Sensation nml, Mood/affect nml - LABS Result Diagrams: 03/29/18 05:25 03/29/18 05:25 Other Lab Results: Laboratory Results WBC 40.9 x10^3/uL (4.8-10.8) H* 03/29/18 05:25 RBC 4.18 10^6/uL (4.20-5.40) L 03/29/18 05:25 Hgb 12.9 g/dL (12.0-16.0) 03/29/18 05:25 Hct 40.0 % (37.0-47.0) 03/29/18 05:25 MCV 95.6 fL (81.0-99.0) 03/29/18 05:25 MCH 30.7 pg (27.0-31.0) 03/29/18 05:25 MCHC 32.2 g/dL (32.0-36.0) 03/29/18 05:25 RDW 20.4 % (12.0-15.0) H 03/29/18 05:25 Plt Count 148 10^3/uL (130-450) 03/29/18 05:25 MPV 9.6 fL (7.9-10.8) 03/29/18 05:25 Neut # (Auto) Not Reportable 03/29/18 05:25 Lymph # (Auto) Not Reportable 03/29/18 05:25 Wood # (Auto) Not Reportable 03/29/18 05:25 Eos # (Auto) Not Reportable 03/29/18 05:25 Baso # (Auto) Not Reportable 03/29/18 05:25 Absolute Nucleated RBC Not Reportable 03/29/18 05:25 Total Counted 100 03/29/18 05:25 Band Neuts % (Manual) 33 % (0-10) H 03/29/18 05:25 Abnorm Lymph % (Manual) 0 % 03/29/18 05:25 Metamyelocytes % 1 % (-0) H 03/27/18 10:57 Nucleated RBC % Not Reportable 03/29/18 05:25 Neutrophils # (Manual) 36.4 10^3/uL (1.5-6.6) H 03/29/18 05:25 Lymphocytes # (Manual) 1.2 10^3/uL (1.5-3.5) L 03/29/18 05:25 Monocytes # (Manual) 2.5 10^3/uL (0.0-1.0) H 03/29/18 05:25 Eosinophils # (Manual) 0.4 10^3/uL (0-0.7) 03/29/18 05:25 Basophils # (Manual) 0.4 10^3/uL (0-0.1) H 03/29/18 05:25 Differential Comment MANUAL DIFFERENTIAL 03/29/18 05:25 Manual Slide Review Indicated 03/27/18 10:57 Platelet Estimate NORMAL (130-450,000) (NORMAL) 03/29/18 05:25 Platelet Morphology NORMAL APPEARANCE (NORMAL) 03/27/18 10:57 RBC Morph Micro Appear 1+ ANISOCYTOSIS (NORMAL) 1+ OVALOCYTES (NORMAL) 1+ HYPOCHROMASIA (NORMAL) 03/28/18 06:02 RBC Morph Micro Appear 1+ ANISOCYTOSIS (NORMAL) 1+ OVALOCYTES (NORMAL) 1+ HYPOCHROMASIA (NORMAL) 03/28/18 06:02 RBC Morph Micro Appear 1+ ANISOCYTOSIS (NORMAL) 1+ HYPOCHROMASIA (NORMAL) 1+ OVALOCYTES (NORMAL) 03/29/18 05:25 RBC Morph Micro Appear 1+ ANISOCYTOSIS (NORMAL) 1+ HYPOCHROMASIA (NORMAL) 1+ OVALOCYTES (NORMAL) 03/29/18 05:25 RBC Morph Micro Appear 1+ ANISOCYTOSIS (NORMAL) 1+ HYPOCHROMASIA (NORMAL) 1+ OVALOCYTES (NORMAL) 03/29/18 05:25 PT 38.0 secs (9.9-12.6) H 03/29/18 05:25 INR 3.5 (0.8-1.2) H 03/29/18 05:25 VBG pH 7.338 (7.31-7.41) 03/29/18 05:25 Ionized Calcium 1.16 mmol/L (1.15-1.33) 03/29/18 05:25 Sodium 134 mmol/L (135-145) L 03/29/18 05:25 Potassium 4.1 mmol/L (3.5-5.0) 03/29/18 05:25 Chloride 103 mmol/L (101-111) 03/29/18 05:25 Carbon Dioxide 25 mmol/L (21-32) 03/29/18 05:25 Anion Gap 6.0 (6-13) 03/29/18 05:25 BUN 14 mg/dL (6-20) 03/29/18 05:25 Creatinine 0.3 mg/dL (0.4-1.0) L 03/29/18 05:25 Estimated GFR (MDRD) 219 (>89) 03/29/18 05:25 Glucose 132 mg/dL (70-100) H 03/29/18 05:25 Calcium 8.3 mg/dL (8.5-10.3) L 03/29/18 05:25 Ionized Calcium YES 03/29/18 05:25 Phosphorus 3.0 mg/dL (2.5-4.6) 03/29/18 05:25 Magnesium 2.0 mg/dL (1.7-2.8) 03/29/18 05:25 Total Bilirubin 1.7 mg/dL (0.2-1.0) H 03/29/18 05:25 Direct Bilirubin 0.7 mg/dL (0.1-0.5) H 03/27/18 10:57 AST 51 IU/L (10-42) H 03/29/18 05:25 ALT 36 IU/L (10-60) 03/29/18 05:25 Alkaline Phosphatase 152 IU/L (42-121) H 03/29/18 05:25 Troponin I < 0.04 ng/mL (<0.49) 03/27/18 10:57 B-Natriuretic Peptide 398 pg/mL (5-100) H 03/27/18 10:57 Total Protein 6.7 g/dL (6.7-8.2) 03/29/18 05:25 Albumin 2.2 g/dL (3.2-5.5) L 03/29/18 05:25 Globulin 4.5 g/dL (2.1-4.2) H 03/29/18 05:25 Albumin/Globulin Ratio 0.5 (1.0-2.2) L 03/29/18 05:25 Urine Color ORANGE 03/27/18 10:48 Urine Clarity CLEAR (CLEAR) 03/27/18 10:48 Urine pH 6.0 PH (5.0-7.5) 03/27/18 10:48 Ur Specific Kemp 1.020 (1.002-1.030) 03/27/18 10:48 Urine Protein NEGATIVE mg/dL (NEGATIVE) 03/27/18 10:48 Urine Glucose (UA) NEGATIVE mg/dL (NEGATIVE) 03/27/18 10:48 Urine Ketones NEGATIVE mg/dL (NEGATIVE) 03/27/18 10:48 Urine Occult Blood NEGATIVE (NEGATIVE) 03/27/18 10:48 Urine Nitrite NEGATIVE (NEGATIVE) 03/27/18 10:48 Urine Bilirubin SMALL (NEGATIVE) H 03/27/18 10:48 Urine Urobilinogen 1 (NORMAL) E.U./dL (NORMAL) 03/27/18 10:48 Ur Leukocyte Esterase SMALL (NEGATIVE) H 03/27/18 10:48 Urine RBC None Seen /HPF (0-5) 03/27/18 10:48 Urine WBC 11-25 /HPF (0-5) H 03/27/18 10:48 Ur Squamous Epith Cells FEW Squamous (<= Few) 03/27/18 10:48 Urine Bacteria Moderate /HPF (None Seen) H 03/27/18 10:48 Urine Mucus Few Strands 03/27/18 10:48 Ur Microscopic Review INDICATED 03/27/18 10:48 Urine Culture Comments INDICATED 03/27/18 10:48 Hepatitis A IgM Ab NON-REACTIVE (NON-REACTIVE) 03/28/18 06:02 Hep Bs Antigen NON-REACTIVE (NON-REACTIVE) 03/28/18 06:02 Hep B Core IgM Ab NON-REACTIVE (NON-REACTIVE) 03/28/18 06:02 Hepatitis C Antibody NON-REACTIVE (NON-REACTIVE) 03/28/18 06:02 Hep C Ab Signal/Cutoff 0.00 (<1.00) 03/28/18 06:02 Infectious Wood Assay NEGATIVE (Negative) 03/27/18 10:57 - DIAGNOSTIC IMAGING Diagnostic Imaging Results: Final report reviewed Diagnostic Imaging Results Comments: Chest x-ray Impression: Right middle lobe infiltrate . Abdominal ultrasound Impression: 1. Severe diffuse heterogeneous echotexture of the liver parenchyma, with nodular liver surface. Combined findings are likely secondary to cirrhosis. 2. There is small volume ascites 3. Moderate to severe splenomegaly. 4. Multiple gallstones. Partially contracted gallbladder. Wall thickening of the gallbladder is probably secondary to hepatocellular dysfunction and third spacing of fluid. No pathologic biliary dilation. 5. Nonspecific slight asymmetry elongated size of the left kidney compared to the right. No hydronephrosis. HIDA scan Impression: 1. Patent cystic duct 2. Patent common bile duct 3. Negative for acute or chronic cholecystitis 4. Positive for enterogastric bile reflux 5. Gallbladder ejection fraction of 55% Echocardiogram Conclusions 1. Left ventricular size is normal. Mild concentric left ventricular hypertrophy. Overall left ventricular systolic function is normal with an ejection fraction of 60-65%. Grade 2 diastolic dysfunction. No regional wall motion abnormalities are seen. 2. The right ventricle is normal in size and function. 3. Mild aortic stenosis. 4. Mild tricuspid regurgitation. Moderately abnormal right heart pressures. The right ventricular systolic pressure at rest is 60 mmHg. Increased from previous study of 10/07/2017. - FOLLOW UP Follow Up: Was discharged home with oral Augmentin for an additional 11 days to complete 14 days of treatment for pneumonia. The patient was weaned off of oxygen prior to discharge. The patient was found to have liver cirrhosis on abdominal ultrasound. She also has ascites and thrombocytopenia. The patient was started on spironolactone and Lasix prior to discharge. The patient was also found to have pulmonary hypertension with elevated right-sided heart pressures. Given the patient's obesity it is concerning for possibility of obstructive sleep apnea. Patient was advised to follow-up with her primary care physician and get referrals for pulmonology, hepatology, sleep study and follow-up with her oncologist. - TIME SPENT Time Spent in Discharge (Minutes): 45
== END 2018-03-29 13:05 | disposition home or self-care (01) | DRG 194 ==
LOC: EDUNIT# → ED 10:23 → MS2 13:02
PROVIDERS: ADMIT Internal Medicine; ATTEND Internal Medicine
DX: J18.1 Lobar pneumonia, unspecified organism (principal); J45.901 Unspecified asthma with (acute) exacerbation; N39.0 Urinary tract infection, site not specified; J45.21 Mild intermittent asthma with (acute) exacerbation; R18.8 Other ascites; D68.51 Activated protein C resistance; D47.1 Chronic myeloproliferative disease; K74.60 Unspecified cirrhosis of liver; K76.0 Fatty (change of) liver, not elsewhere classified; I27.20 Pulmonary hypertension, unspecified; R09.02 Hypoxemia; K80.20 Calculus of gallbladder without cholecystitis without obstruction; E66.9 Obesity, unspecified; R16.1 Splenomegaly, not elsewhere classified; Z86.718 Personal history of other venous thrombosis and embolism; Z79.01 Long term (current) use of anticoagulants; Z79.51 Long term (current) use of inhaled steroids; Z79.899 Other long term (current) drug therapy; Z68.38 Body mass index [BMI] 38.0-38.9, adult
CPT/HCPCS: 36415; 71046; 76700; 80048; 80053; 80074; 80076; 81001; 81003; 82330; 83735; 83880; 84100; 84484; 85025; 85610; 86308; 87040; 87086; 93005; 93306; 94640; 94761; 99284

== ENCOUNTER 2018-03-28 09:30 | Outpatient (CLI) | payer MEDICARE ==
[2018-03-28] MEDS ORDERED: SINCALIDE 5 MCG VIAL ONE (10:34)
[2018-03-28] MEDS ORDERED: SINCALIDE 2.2 MCG in SODIUM CHLORIDE 0.9% 50 ML IV ONE (12:46)
--- NOTE | 2018-03-28 12:53 | Nuclear Medicine Report ---
Procedure Date: 03/28/2018 Accession Number: [id number] / [id number] Procedure: NM - Hepatobiliary HIDA w/ Rx CPT Code: FULL RESULT: EXAM: HEPATOBILIARY SCAN WITH CCK/KINEVAC ADMINISTRATION EXAM DATE: 03/28/2018 12:33 PM. CLINICAL HISTORY: GALLSTONES/ATYPICAL PAIN. COMPARISON: 03/27/2018. TECHNIQUE: Following the intravenous administration of 5.3 mCi of Tc99m Mebrofenin, a hepatobiliary scan was done centered on the liver and gallbladder in multiple sequential images and projections. Following the intravenous administration of 2.2 mcg of CCK/ Kinevac over the course of approximately 60 minutes, dynamic imaging was done and the gallbladder ejection fraction was calculated. FINDINGS: Normal extraction of tracer from the blood pool indicating normal hepatocellular function. Small right hepatic lobe with enlargement of the left hepatic lobe. There is activity visualized within the bile ducts and gallbladder within the first hour. Small bowel activity is present after CCK administration. With CCK administration, the gallbladder demonstrates an effective contraction. The gallbladder ejection fraction is calculated to be 55%, well above the lower limit of normal of 38% for a 60-minute injection. The patient did not report symptoms after CCK administration. Positive for enterogastric bile reflux. IMPRESSION: 1. Patent cystic duct. 2. Patent common bile duct. 3. Negative for acute or chronic cholecystitis. 4. Positive for enterogastric bile reflux. 5. Gallbladder ejection fraction of 55%. RADIA
== END 2018-03-28 23:59 | disposition home or self-care (01) ==
LOC: DI 09:30
PROVIDERS: ATTEND Surgery
DX: K31.89 Other diseases of stomach and duodenum (principal); K80.20 Calculus of gallbladder without cholecystitis without obstruction
CPT/HCPCS: 78227

== ENCOUNTER 2018-03-30 09:05 | Emergency (ER) | payer MEDICARE ==
[2018-03-30] MEDS ORDERED: FUROSEMIDE 20 MG/2 ML VIAL IVP STA ×2 (09:37→10:41)
--- NOTE | 2018-03-30 09:48 | ED Physician Documentation ---
PD HPI DYSPNEA - Stated complaint Stated Complaint: FEVER/SOA - Chief complaint Chief Complaint: Resp - History obtained from History obtained from: Patient - History of Present Illness Timing - onset: Today Timing - onset during: Rest Timing - details: Still present Recently seen: Admitted (Discharged from hospital yesterday.) - Additional information Additional information: The patient is a 72-year-old female who presents with dyspnea that started after a coughing episode early this morning. Her cough is productive of sputum. She also reports feeling chilled. She was discharged from this hospital yesterday after 3 day hospitalization for community-acquired pneumonia. She had been treated with ceftriaxone and Zithromax while in the hospital, and was discharged with prescription for Augmentin. She was also found to have ascites, pulmonary hypertension, and right-sided congestive heart failure during her workup in the hospital. She was started on Lasix and Aldactone. Her past medical history is significant for recurrent pneumonia during the past year, and for myeloproliferative neoplasm, and for a left lower extremity DVT with factor V Leiden mutation. On further review of systems she denies chest pain, vomiting, or dysuria. She has noted increased swelling in her ankles. Review of Systems Constitutional: reports: Chills, Fatigue Ears: denies: Tinnitus/ringing Nose: denies: Congestion Throat: denies: Sore throat Cardiac: reports: Pedal edema. denies: Chest pain / pressure Respiratory: reports: Dyspnea, Cough GI: denies: Abdominal Pain, Vomiting : denies: Dysuria Skin: denies: Rash Musculoskeletal: reports: Extremity swelling Neurologic: reports: Generalized weakness. denies: Focal weakness, Numbness, Headache PD PAST MEDICAL HISTORY - Past Medical History Past Medical History: Yes Cardiovascular: Congestive heart failure (right-sided), Deep vein thrombosis Respiratory: Asthma, Pneumonia, Other (Pulmonary hypertension) Endocrine/Autoimmune: None GI: Hemorrhoids : None HEENT: Dental implants Psych: None Musculoskeletal: None Derm: None Other Past Medical History: Myeloproliferative neoplasm: stable - Past Surgical History Past Surgical History: Yes Ortho: Knee replacement /[employer]IVE[employer]: Dilation and currettage HEENT: Tonsil/Adenoidectomy - Present Medications Home Medications: Ambulatory Orders Medication Instructions Recorded Confirmed Warfarin [Coumadin] 5 mg PO SUMOTUWETHSA@2100 03/14/17 03/27/18 Calcium Carbonate/Vitamin D3 1 tab PO DAILY 07/11/17 03/27/18 [Calcium 250-Vit D3 125 Tablet] traZODone [Desyrel] 50 mg PO QPM 07/11/17 03/27/18 Albuterol Sulfate [Proair Hfa 2 puffs INH Q4H PRN 03/27/18 03/27/18 Inhaler] Fluticasone [Flonase] 2 sprays DEBI DAILY 03/27/18 03/27/18 Fluticasone/Salmeterol [Advair 1 puffs INH BID 03/27/18 03/27/18 250-50 Diskus] Warfarin [Coumadin] 10 mg PO FR@2100 03/27/18 03/27/18 Amox/Clav 875/125 [Augmentin] 1 each PO Q12H #22 tablet 03/29/18 Furosemide [Lasix] 20 mg PO DAILY #30 tablet 03/29/18 Omeprazole 20 mg PO DAILY #30 tablet. 03/29/18 Spironolactone [Aldactone] 12.5 mg PO DAILY #30 tablet 03/29/18 - Allergies Allergies/Adverse Reactions: Allergies Allergy/AdvReac Type Severity Reaction Status Date / Time No Known Drug Allergies Allergy Verified 03/27/18 10:40 - Social History Does the pt smoke?: No Smoking Status: Never smoker Does the pt drink ETOH?: Yes Does the pt have substance abuse?: No - Immunizations Immunizations are current?: Yes - POLST Patient has POLST: No POLST Status: Full Code PD ED PE NORMAL - Vitals Vital signs reviewed: Yes (tachypneic, with low pulse oximetry) - General General: Alert and oriented X 3, Well developed/nourished - HEENT HEENT: Atraumatic, Pharynx benign - Neck Neck: No adenopathy, No JVD - Cardiac Cardiac: RRR, Other (II/ systolic murmur) - Respiratory Respiratory: Other (Respiratory distress, with rales at bases, and course breath sounds on right.) - Abdomen Abdomen: Soft, Non tender, Other (Distended, with ascites.) - Back Back: No CVA TTP - Derm Derm: No rash - Extremities Extremities: No calf tenderness / cord, Other (2+ pedal edema bilaterally.) - Neuro Neuro: Alert and oriented X 3, No motor deficit, No sensory deficit Results - Vitals Vitals: Vital Signs - 24 hr 03/30/18 03/30/18 03/30/18 09:13 09:34 10:10 Temperature 37.9 C H Heart Rate 103 H 104 H 104 H Respiratory 26 H 33 H 33 H Rate Blood Pressure 137/67 H 121/67 O2 Saturation 82 L 95 03/30/18 03/30/18 03/30/18 10:16 11:04 11:35 Temperature Heart Rate 105 H 104 H 98 Respiratory 22 18 22 Rate Blood Pressure 141/65 H 120/56 L O2 Saturation 93 91 L 90 L 03/30/18 13:26 Temperature Heart Rate 91 Respiratory 18 Rate Blood Pressure 93/56 L O2 Saturation 90 L Oxygen O2 Source Oxymizer Oxygen Flow Rate 15 - EKG (time done) 10:28 Rate: Rate (enter#) (104) Rhythm: Sinus tachycardia [place]: Anterior hemiblock Intervals: RBBB Ischemia: T wave inversion (in precordial leads V2-V4.) Compare to prior EKG: Unchanged from prior EKG Computer interpretation: Agree with computer - Labs Labs: Laboratory Tests 03/30/18 03/30/18 03/30/18 09:27 09:27 09:27 WBC 43.7 H* RBC 4.90 Hgb 14.9 Hct 46.6 MCV 95.1 MCH 30.4 MCHC 32.0 RDW 20.4 H Plt Count 176 MPV 9.8 Neut # (Auto) Not Reportable Lymph # (Auto) Not Reportable [place] # (Auto) Not Reportable Eos # (Auto) Not Reportable Baso # (Auto) Not Reportable Absolute Nucleated RBC Not Reportable Total Counted 100 Band Neuts % (Manual) 14 H Abnorm Lymph % (Manual) 0 Metamyelocytes % 3 H Nucleated RBC % Not Reportable Neutrophils # (Manual) 41.1 H Lymphocytes # (Manual) 0.9 L Monocytes # (Manual) 0.0 Eosinophils # (Manual) 0.0 Basophils # (Manual) 0.4 H Differential Comment MANUAL DIFFERENTIAL Manual Slide Review Indicated Platelet Estimate NORMAL (130-450,000) Platelet Morphology NORMAL APPEARANCE RBC Morph Micro Appear 1+ POLYCHROMASIA PT INR Sodium 133 L Potassium 3.8 Chloride 101 Carbon Dioxide 24 Anion Gap 8.0 BUN 16 Creatinine 0.5 Estimated GFR (MDRD) 121 Glucose 97 Lactic Acid 2.2 Calcium 8.3 L Total Bilirubin 2.6 H AST 74 H ALT 49 Alkaline Phosphatase 184 H Troponin I B-Natriuretic Peptide Total Protein 6.9 Albumin 2.4 L Globulin 4.5 H Albumin/Globulin Ratio 0.5 L Lipase > 4800 H Urine Color Urine Clarity Urine pH Ur Specific [place] Urine Protein Urine Glucose (UA) Urine Ketones Urine Occult Blood Urine Nitrite Urine Bilirubin Urine Urobilinogen Ur Leukocyte Esterase Urine RBC Urine WBC Ur Squamous Epith Cells Urine Bacteria Urine Mucus Ur Microscopic Review Urine Culture Comments Slides for Path Review Indicated 03/30/18 03/30/18 03/30/18 09:27 09:27 10:20 WBC RBC Hgb Hct MCV MCH MCHC RDW Plt Count MPV Neut # (Auto) Lymph # (Auto) [place] # (Auto) Eos # (Auto) Baso # (Auto) Absolute Nucleated RBC Total Counted Band Neuts % (Manual) Abnorm Lymph % (Manual) Metamyelocytes % Nucleated RBC % Neutrophils # (Manual) Lymphocytes # (Manual) Monocytes # (Manual) Eosinophils # (Manual) Basophils # (Manual) Differential Comment Manual Slide Review Platelet Estimate Platelet Morphology RBC Morph Micro Appear PT 38.0 H INR 3.5 H Sodium Potassium Chloride Carbon Dioxide Anion Gap BUN Creatinine Estimated GFR (MDRD) Glucose Lactic Acid Calcium Total Bilirubin AST ALT Alkaline Phosphatase Troponin I 0.05 B-Natriuretic Peptide 458 H Total Protein Albumin Globulin Albumin/Globulin Ratio Lipase Urine Color Urine Clarity Urine pH Ur Specific [place] Urine Protein Urine Glucose (UA) Urine Ketones Urine Occult Blood Urine Nitrite Urine Bilirubin Urine Urobilinogen Ur Leukocyte Esterase Urine RBC Urine WBC Ur Squamous Epith Cells Urine Bacteria Urine Mucus Ur Microscopic Review Urine Culture Comments Slides for Path Review 03/30/18 03/30/18 11:15 13:02 WBC RBC Hgb Hct MCV MCH MCHC RDW Plt Count MPV Neut # (Auto) Lymph # (Auto) [place] # (Auto) Eos # (Auto) Baso # (Auto) Absolute Nucleated RBC Total Counted Band Neuts % (Manual) Abnorm Lymph % (Manual) Metamyelocytes % Nucleated RBC % Neutrophils # (Manual) Lymphocytes # (Manual) Monocytes # (Manual) Eosinophils # (Manual) Basophils # (Manual) Differential Comment Manual Slide Review Platelet Estimate Platelet Morphology RBC Morph Micro Appear PT INR Sodium Potassium Chloride Carbon Dioxide Anion Gap BUN Creatinine Estimated GFR (MDRD) Glucose Lactic Acid 2.6 H Calcium Total Bilirubin AST ALT Alkaline Phosphatase Troponin I B-Natriuretic Peptide Total Protein Albumin Globulin Albumin/Globulin Ratio Lipase Urine Color DK. ORANGE Urine Clarity CLEAR Urine pH 6.0 Ur Specific [place] 1.015 Urine Protein TRACE Urine Glucose (UA) NEGATIVE Urine Ketones TRACE Urine Occult Blood NEGATIVE Urine Nitrite POSITIVE H Urine Bilirubin MODERATE H Urine Urobilinogen 2 H Ur Leukocyte Esterase SMALL H Urine RBC 0-5 Urine WBC 11-25 H Ur Squamous Epith Cells MOD Squamous H Urine Bacteria Few Urine Mucus Few Strands Ur Microscopic Review INDICATED Urine Culture Comments NOT INDICATED Slides for Path Review - Rads (name of study) CXR Radiology: Prelim report reviewed, EMP read contemporaneously, See rad report ( Pulmonary hypoinflation. Increasing atelectasis or pneumonia of the right lower lung. Left lower lung scarring, cardiomegaly, and other findings are unchanged from 03/27/2018.) PD MEDICAL DECISION MAKING - ED course Complexity details: reviewed old records, reviewed results, re-evaluated patient , considered differential, d/w patient, d/w family, d/w contaminated land consultant ED course: The patient's presentation is significant for respiratory distress with hypoxia. This appears to be exacerbation of her pneumonia for which she was recently hospitalized, and discharged yesterday. Her chest x-ray today reveals increased right lower lobe infiltrate. Her white count is also continuing to elevate, at 43.7 today. It is normally 22,000 at baseline due to her myeloproliferative disorder, and was 40.9 prior to discharge from the hospital yesterday. Lactate level is at the upper end of the normal range at 2.2. BNP is elevated at 458. Troponin is within the normal range at 0.05. It should also be noted that the patient's lipase level is markedly elevated at greater than 4800. Treatment in the emergency department included administration of supplemental oxygen by nonrebreather facemask, which improved her pulse oximetry from 82% to 95%. Ceftriaxone 1 g and Zithromax 500 mg were administered IV. DuoNeb nebulizer was administered and did not change the patient's symptoms. With increased ascites, pedal edema, and bilateral rales on auscultation of her chest , the possibility of increased fluid overload was considered, and Lasix 20 mg administered IV. Her respiratory distress did gradually improve after this treatment. I discussed her condition with the hospitalist who had been caring for earlier in the week. He advises that it would be most appropriate for the patient be transported to a facility with a higher level of care. She is going to need further workup to help diagnose the cause of her frequent episodes of pneumonia over the past year, as well as the underlying cause for his ascites. I discussed her condition with Dr. Ferreira, at [facility] in [place]. He agrees with transfer. The patient is being transferred to [facility] , and the accepting physician is Dr. Isabel. Transfer forms were completed. While awaiting transport a CT scan of the abdomen and pelvis was performed at Dr. Ferreira's request. The results are not currently available, but images will be sent to [facility]. - Sepsis Event Vital Signs: Vital Signs - 24 hr 03/30/18 03/30/18 03/30/18 09:13 09:34 10:10 Temperature 37.9 C H Heart Rate 103 H 104 H 104 H Respiratory 26 H 33 H 33 H Rate Blood Pressure 137/67 H 121/67 O2 Saturation 82 L 95 03/30/18 03/30/18 03/30/18 10:16 11:04 11:35 Temperature Heart Rate 105 H 104 H 98 Respiratory 22 18 22 Rate Blood Pressure 141/65 H 120/56 L O2 Saturation 93 91 L 90 L 03/30/18 13:26 Temperature Heart Rate 91 Respiratory 18 Rate Blood Pressure 93/56 L O2 Saturation 90 L Oxygen O2 Source Oxymizer Oxygen Flow Rate 15 Departure - Departure Disposition: 02 Transfer Acute Care Hosp Clinical Impression: Pneumonia, Hypoxia, Myeloproliferative neoplasm, Ascites Condition: Stable Discharge Date/Time: 03/30/18 13:50
[2018-03-30 09:58] LABS: BASOPHILS % (AUTO) 0.3 %; EOSINOPHILS % (AUTO) 1.7 %; HGB - HEMOGLOBIN 14.9 g/dL (12.0-16.0); LYMPHOCYTES % (AUTO) 1.7 %; MEAN CORPUSCULAR HEMOGLOBIN 30.4 pg (27.0-31.0); MEAN CORPUSCULAR VOLUME 95.1 fL (81.0-99.0); MEAN PLATELET VOLUME 9.8 fL (7.9-10.8); MONOCYTES % (AUTO) 2.9 %; NEUTROPHILS % (AUTO) 93.4 %; PLT - PLATELET COUNT 176 10^3/uL (130-450); RED CELL DISTRIBUTION WIDTH 20.4 % (12.0-15.0)
[2018-03-30 10:00] LABS: INR 3.5 (0.8-1.2)
[2018-03-30] MEDS ORDERED: IPRATROPIUM/ALBUTEROL 3 ML NEB INH STA (10:01)
[2018-03-30 10:02] LABS: WHITE BLOOD COUNT 43.7 x10^3/uL (4.8-10.8)
--- NOTE | 2018-03-30 10:14 | XRAY Report ---
Procedure Date: 03/30/2018 Accession Number: [id number] / [id number] Procedure: XR - Chest 1 View X-Ray CPT Code: 28691 FULL RESULT: EXAM: CHEST RADIOGRAPHY ONE VIEW EXAM DATE: 03/30/2018. CLINICAL HISTORY: Dyspnea. COMPARISON: 03/27/2018. TECHNIQUE: AP upright portable chest at 0954. FINDINGS: Lungs/Pleura: Hypoinflated. Increased opacity of the right lower lung compared with the prior examination. Minimal left lower lung scarring is unchanged. No pleural effusion or pneumothorax. Mediastinum: Mild cardiomegaly and aortic tortuosity are unchanged. Otherwise normal mediastinal contours. Bones: Degenerative changes of the spine. Left subacromial spur. IMPRESSION: Pulmonary hypoinflation. Increasing atelectasis or pneumonia of the right lower lung. Left lower lung scarring, cardiomegaly, and other findings are unchanged from 03/27/2018. RADIA
[2018-03-30 10:18] LABS: ABNORMAL LYMPHS % (MANUAL) 0 %
[2018-03-30 10:19] LABS: BAND NEUTROPHILS % (MANUAL) 14 %; BASOPHILS # (MANUAL) 0.4 10^3/uL (0-0.1); BASOPHILS % (MANUAL) 1 %; LYMPHOCYTES # (MANUAL) 0.9 10^3/uL (1.5-3.5); LYMPHOCYTES % (MANUAL) 2 %; METAMYELOCYTES % (MANUAL) 3 %; NEUTROPHILS # (MANUAL) 41.1 10^3/uL (1.5-6.6); NEUTROPHILS % (MANUAL) 80 %
[2018-03-30 10:20] LABS: PLATELET ESTIMATE, MANUAL NORMAL (130-450,000) (NORMAL); PLATELET MORPHOLOGY NORMAL APPEARANCE (NORMAL)
[2018-03-30 10:21] LABS: DIFFERENTIAL COMMENT MANUAL DIFFERENTIAL
[2018-03-30] MEDS ORDERED: cefTRIAXone 1 GM in SODIUM CHLORIDE 0.9% MINIBAG 100 ML IV STA (10:35)
[2018-03-30] MEDS ORDERED: AZITHROMYCIN INJ 500 MG in SODIUM CHLORIDE 0.9% 250 ML IV STA (10:35)
[2018-03-30] MEDS ORDERED: SODIUM CHLORIDE 0.9% 500 ML IV ONE (10:35)
[2018-03-30 10:53] LABS: ALBUMIN 2.4 g/dL (3.2-5.5); ALBUMIN/GLOBULIN RATIO 0.5 (1.0-2.2); ALKALINE PHOSPHATASE 184 IU/L (42-121); ALT ALANINE AMINOTRANSFERASE 49 IU/L (10-60); AST ASPARTATE AMINOTRANSFERASE 74 IU/L (10-42); BILIRUBIN,TOTAL 2.6 mg/dL (0.2-1.0); BUN - BLOOD UREA NITROGEN 16 mg/dL (6-20); CALCIUM 8.3 mg/dL (8.5-10.3); CARBON DIOXIDE - CO2 24 mmol/L (21-32); CHLORIDE 101 mmol/L (101-111); CREATININE 0.5 mg/dL (0.4-1.0); GFR - MDRD 121 (>89); GLUCOSE 97 mg/dL (70-100); LIPASE > 4800 U/L (22-51); SODIUM 133 mmol/L (135-145); TOTAL PROTEIN 6.9 g/dL (6.7-8.2)
[2018-03-30] MEDS ORDERED: FUROSEMIDE 20 MG/2 ML VIAL IVP ONE (11:02)
[2018-03-30 11:29] LABS: GLUCOSE, URINE (UA) NEGATIVE (NEGATIVE); KETONES,URINE (UA) TRACE mg/dL (NEGATIVE); LEUKOCYTE ESTERASE, URINE SMALL (NEGATIVE); NITRITE,URINE POSITIVE (NEGATIVE); OCCULT BLOOD,URINE NEGATIVE (NEGATIVE); PROTEIN,URINE TRACE mg/dL (NEGATIVE); UROBILINOGEN,URINE 2 E.U./dL (NORMAL)
[2018-03-30 11:47] LABS: BILIRUBIN,URINE MODERATE (NEGATIVE); CLARITY,URINE CLEAR (CLEAR); ICTOTEST,URINE POSITIVE
[2018-03-30 11:48] LABS: RBC,URINE 0-5 /HPF (0-5)
[2018-03-30 11:49] LABS: BACTERIA,URINE Few /HPF (None Seen); MUCUS,URINE Few Strands; SQUAMOUS EPITHELIAL CELL,UR MOD Squamous (<= Few)
[2018-03-30] MEDS ORDERED: IOPAMIDOL-300 100 ML VIAL IVP ONE (13:08)
[2018-03-30 13:27] VITALS: BP 93/56
--- NOTE | 2018-03-30 13:44 | CT Report ---
Procedure Date: 03/30/2018 Accession Number: [id number] / [id number] Procedure: CT - Abdomen/Pelvis W/ CPT Code: FULL RESULT: EXAM: CT ABDOMEN AND PELVIS EXAM DATE: 03/30/2018 01:16 PM. CLINICAL HISTORY: Abdominal distention. History of ascites. COMPARISONS: Abdomen/pelvis with contrast 03/23/2018 9:48 AM. TECHNIQUE: Routine helical CT imaging was performed through the abdomen and pelvis. IV contrast: 100 mL Isovue 300. Enteric contrast: No. Reconstructions: Coronal and sagittal. In accordance with CT protocol optimization, one or more of the following dose reduction techniques were utilized for this exam: automated exposure control, adjustment of mA and/or KV based on patient size, or use of iterative reconstructive technique. FINDINGS: Lung Bases: Interval development of groundglass opacities and mild predominantly right basilar consolidation. Liver: Normal. No masses. Gallbladder/Bile Ducts: Cholelithiasis Spleen: Splenomegaly, unchanged compared to 03/23/2018. Pancreas: Normal. Adrenal Glands: Normal. Kidneys: Normal. No masses or hydronephrosis. Peritoneal Cavity/Bowel: Persistent ascites with anasarca. No free air or adenopathy. No masses or acute inflammatory process. Pelvic Organs: Normal. The bladder and visualized pelvic organs are within normal limits. 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 Retrospectively, this is also present 03/23/2018. Bones: No acute fracture or aggressive osseous lesion. Other: None. IMPRESSION: 1. 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 Correlate to clinical presentation to exclude causes such as pelvic congestion syndrome. Collateralization from obstructive causes such as lower IVC obstruction can also cause this finding. No IVC obstruction is identified on this study. 2.Small amount of new right basilar consolidation. 3. Interval development of pulmonary groundglass, nonspecific, probably edema. 4. Stable findings of anasarca, ascites, cholelithiasis, and splenomegaly. RADIA
--- NOTE | 2018-03-30 18:08 | ED Physician Documentation ---
ED Addendum - Addendum Addendum: 03/30/18 18:07 unscheduled return visit - chart accessed for follow up and educational purposes
== END 2018-03-30 13:50 | disposition short-term general hospital (02) ==
LOC: ED 09:05
DX: J18.9 Pneumonia, unspecified organism (principal); R09.02 Hypoxemia; C94.6 Myelodysplastic disease, not elsewhere classified; R18.8 Other ascites; I27.20 Pulmonary hypertension, unspecified; Z79.01 Long term (current) use of anticoagulants; R01.1 Cardiac murmur, unspecified; R60.0 Localized edema; R00.0 Tachycardia, unspecified; R94.31 Abnormal electrocardiogram [ECG] [EKG]
CPT/HCPCS: 36415; 71045; 74177; 80053; 81001; 81003; 83605; 83690; 83880; 84484; 85025; 85610; 87040; 87086; 93005; 94640; 96365; 96366; 96368; 96375; 99284

== ENCOUNTER 2018-04-26 10:35 | Outpatient (CLI) | payer MEDICARE ==
[2018-04-26 18:13] LABS: CALCIUM 8.5 mg/dL (8.5-10.3); CREATININE 0.6 mg/dL (0.4-1.0)
== END 2018-04-26 10:36 | disposition home or self-care (01) ==
LOC: LAB.F 10:35
PROVIDERS: ATTEND Internal Medicine
DX: I82.402 Acute embolism and thrombosis of unspecified deep veins of left lower extremity (principal); I50.30 Unspecified diastolic (congestive) heart failure
CPT/HCPCS: 36415; 80048; 83880; 85610

== ENCOUNTER 2018-05-03 13:16 | Outpatient (CLI) | payer MEDICARE | END 2018-05-03 13:17 | disposition home or self-care (01) | LOC: LAB.F 13:16 | PROVIDERS: ATTEND Internal Medicine | DX: I82.402 Acute embolism and thrombosis of unspecified deep veins of left lower extremity (principal) | CPT/HCPCS: 85610 ==

== ENCOUNTER 2018-05-18 10:35 | Outpatient (CLI) | payer MEDICARE | END 2018-05-18 10:36 | disposition home or self-care (01) | LOC: LAB.F 10:35 | PROVIDERS: ATTEND Internal Medicine | DX: I82.402 Acute embolism and thrombosis of unspecified deep veins of left lower extremity (principal) | CPT/HCPCS: 85610 ==

== ENCOUNTER 2018-05-28 11:17 | Outpatient (CLI) | payer MEDICARE | END 2018-05-28 11:18 | disposition home or self-care (01) | LOC: SC 11:17 | PROVIDERS: ATTEND Internal Medicine Pulmonary Disease | DX: G47.10 Hypersomnia, unspecified (principal); R06.83 Snoring; G47.8 Other sleep disorders | CPT/HCPCS: 99203; G0463; 99212 ==

== ENCOUNTER 2018-05-31 13:14 | Outpatient (CLI) | payer MEDICARE ==
[2018-05-31 18:02] LABS: CALCIUM 8.6 mg/dL (8.5-10.3); CREATININE 0.5 mg/dL (0.4-1.0)
== END 2018-05-31 13:15 | disposition home or self-care (01) ==
LOC: LAB.F 13:14
PROVIDERS: ATTEND Internal Medicine
DX: I82.402 Acute embolism and thrombosis of unspecified deep veins of left lower extremity (principal); Z79.899 Other long term (current) drug therapy
CPT/HCPCS: 36415; 80048; 85610

== ENCOUNTER 2018-06-13 13:28 | Outpatient (CLI) | payer MEDICARE | END 2018-06-13 13:29 | disposition home or self-care (01) | LOC: LAB.F 13:28 | PROVIDERS: ATTEND Internal Medicine | DX: I82.402 Acute embolism and thrombosis of unspecified deep veins of left lower extremity (principal) | CPT/HCPCS: 85610 ==

== ENCOUNTER 2018-06-27 08:55 | Outpatient (CLI) | payer MEDICARE | END 2018-06-27 08:56 | disposition home or self-care (01) | LOC: LAB.F 08:55 | PROVIDERS: ATTEND Internal Medicine | DX: I82.402 Acute embolism and thrombosis of unspecified deep veins of left lower extremity (principal) | CPT/HCPCS: 85610 ==

== ENCOUNTER 2018-07-06 13:52 | Outpatient (CLI) | payer MEDICARE | END 2018-07-06 13:53 | disposition home or self-care (01) | LOC: LAB.F 13:52 | PROVIDERS: ATTEND Internal Medicine | DX: I82.402 Acute embolism and thrombosis of unspecified deep veins of left lower extremity (principal); Z79.899 Other long term (current) drug therapy | CPT/HCPCS: 36415; 80069; 85610 ==

== ENCOUNTER 2018-07-13 13:53 | Outpatient (CLI) | payer MEDICARE ==
[2018-07-13 17:44] LABS: ALBUMIN 2.5 g/dL (3.2-5.5); CALCIUM 8.2 mg/dL (8.5-10.3); CREATININE 0.5 mg/dL (0.4-1.0); PHOSPHORUS 3.4 mg/dL (2.5-4.6)
== END 2018-07-13 13:54 | disposition home or self-care (01) ==
LOC: LAB.F 13:53
PROVIDERS: ATTEND Internal Medicine Gastroenterology
DX: Z79.899 Other long term (current) drug therapy (principal)
CPT/HCPCS: 36415; 80069

== ENCOUNTER 2018-07-16 20:27 | Outpatient (CLI) | payer MEDICARE | END 2018-07-16 20:28 | disposition home or self-care (01) | LOC: SC 20:27 | PROVIDERS: ATTEND Internal Medicine Pulmonary Disease | DX: R06.83 Snoring (principal); R09.02 Hypoxemia | CPT/HCPCS: 95810 ==

== ENCOUNTER 2018-08-08 13:38 | Outpatient (CLI) | payer MEDICARE ==
[2018-08-08 18:26] LABS: HB2 TOTAL 14.7 g/dL; HEMOGLOBIN A1C 0.46 g/dL
[2018-08-08 18:54] LABS: ALBUMIN 2.7 g/dL (3.2-5.5); CALCIUM 8.8 mg/dL (8.5-10.3); CREATININE 0.5 mg/dL (0.4-1.0); PHOSPHORUS 4.2 mg/dL (2.5-4.6)
== END 2018-08-08 13:39 | disposition home or self-care (01) ==
LOC: LAB.F 13:38
PROVIDERS: ATTEND Internal Medicine
DX: I82.402 Acute embolism and thrombosis of unspecified deep veins of left lower extremity (principal); Z79.899 Other long term (current) drug therapy; E11.9 Type 2 diabetes mellitus without complications
CPT/HCPCS: 36415; 80069; 83036; 85610

== ENCOUNTER 2018-08-23 21:42 | Outpatient (CLI) | payer MEDICARE ==
--- NOTE | 2018-08-23 23:40 | Ultrasound Report ---
Reason: EDEMA Procedure Date: 08/23/2018 Accession Number: [id number] / [id number] Procedure: US - Duplex Ext Veins Right CPT Code: FULL RESULT: EXAM: RIGHT LOWER EXTREMITY VENOUS ULTRASOUND EXAM DATE: 08/23/2018 11:22 PM. CLINICAL HISTORY: Right leg pain and swelling. COMPARISON: None. TECHNIQUE: Real-time sonographic vascular imaging was performed by the story editor through the lower extremity utilizing both color-flow and Doppler spectral analysis. Multiple parts representative static images were saved for review. FINDINGS: Common Femoral Vein (CFV): Normal. CFV-GSV Junction: Normal. Profunda Femoral Vein (PFV): Thrombosis. Femoral Vein (FV) Prox: Thrombosis. Femoral Vein (FV) Mid: Normal. Femoral Vein (FV) Dist: Normal. Popliteal Vein: Normal. Posterior Tibial Veins: Nonvisualized due to edema. Peroneal Veins: Nonvisualized due to edema. Contralateral Side CFV: Normal. Other: None. IMPRESSION: DVT in the profundal vein and the proximal femoral vein. RADIA The critical result notification system was initiated by Dr. Hal Rodriguez at 23:30 hrs on 08/23/18. The above findings were discussed with Josy Cooley by Dr. Hal Rodriguez at 23:38 hrs on 08/23/18.
== END 2018-08-23 21:43 | disposition home or self-care (01) ==
LOC: DI 21:42
PROVIDERS: ATTEND Internal Medicine
DX: I82.411 Acute embolism and thrombosis of right femoral vein (principal); I82.491 Acute embolism and thrombosis of other specified deep vein of right lower extremity

== ENCOUNTER 2018-08-24 13:07 | Outpatient (CLI) | payer MEDICARE | END 2018-08-24 13:08 | disposition home or self-care (01) | LOC: LAB.F 13:07 | PROVIDERS: ATTEND Internal Medicine | DX: I82.402 Acute embolism and thrombosis of unspecified deep veins of left lower extremity (principal) | CPT/HCPCS: 85610 ==

== ENCOUNTER 2018-08-25 10:54 | Emergency (ER) | payer MEDICARE ==
[2018-08-25 11:00] VITALS: BP 119/58
--- NOTE | 2018-08-25 12:11 | ED Physician Documentation ---
History of Present Illness - Stated complaint Stated Complaint: LT LEG PX - Chief complaint Chief Complaint: Ext Problem - History obtained from History obtained from: Patient, Family - History of Present Illness Timing: Yesterday Pain level max: 8 Pain level now: 8 - Additonal information Additional information: 72-year-old female with a history of factor V Leiden deficiency presents to the emergency department after being diagnosed with the DVT in the right proximal femoral vein 2 days ago. Started on Lovenox yesterday as her warfarin level was subtherapeutic. She is now having pain in the left leg as well. Has been using a cane to walk. Worse with movement and better with rest. No chest pain. No shortness of breath Review of Systems Constitutional: denies: Fever, Chills Throat: denies: Sore throat Respiratory: denies: Cough GI: denies: Nausea, Vomiting, Diarrhea Skin: denies: Rash Musculoskeletal: denies: Neck pain, Back pain Neurologic: denies: Headache PD PAST MEDICAL HISTORY - Past Medical History Past Medical History: Yes Cardiovascular: Congestive heart failure, Deep vein thrombosis Respiratory: Asthma, Pneumonia, Other Endocrine/Autoimmune: None GI: Hemorrhoids, Cirrhosis : None HEENT: Dental implants Psych: None Musculoskeletal: None Derm: None Other Past Medical History: DVT R leg 2019 - Past Surgical History Past Surgical History: Yes 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 03/29/18 06/05/18 Furosemide [Lasix] 40 mg PO DAILY 06/05/18 06/05/18 Nadolol 0.5 tab PO DAILY 06/05/18 06/05/18 Spironolactone [Aldactone] 2 mg PO BID 06/05/18 06/05/18 Enoxaparin [Lovenox] 100 mg SUBQ Q12H 08/25/18 08/25/18 Rivaroxaban [Xarelto] 15 mg PO BID #42 tablet 08/25/18 oxyCODONE [Roxicodone] 5 mg PO Q4-6H #14 tablet 08/25/18 - Allergies Allergies/Adverse Reactions: Allergies Allergy/AdvReac Type Severity Reaction Status Date / Time No Known Drug Allergies Allergy Verified 08/25/18 11:00 - Social History Does the pt smoke?: No Smoking Status: Never smoker Does the pt drink ETOH?: Yes Does the pt have substance abuse?: No - Immunizations Immunizations are current?: Yes - POLST Patient has POLST: No POLST Status: Full Code PD ED PE NORMAL - Vitals Vital signs reviewed: Yes - General General: Alert and oriented X 3, No acute distress - HEENT HEENT: Moist mucous membranes - Neck Neck: Supple, no meningeal sign - Cardiac Cardiac: RRR - Respiratory Respiratory: No respiratory distress, Clear bilaterally - Derm Derm: Warm and dry - Extremities Extremities: No deformity, No calf tenderness / cord, Other (1+ bilateral pitting edema. Mild pain with active range of motion of the left hip. No pain with passive range of motion. No bony tenderness) - Neuro Neuro: Alert and oriented X 3, No motor deficit, No sensory deficit - Psych Psych: Normal mood, Normal affect Results - Vitals Vitals: Vital Signs - 24 hr 08/25/18 10:57 Temperature 36.4 C L Heart Rate 61 Respiratory 20 Rate Blood Pressure 119/58 L O2 Saturation 100 Oxygen O2 Source Room air PD MEDICAL DECISION MAKING - ED course Complexity details: reviewed old records, considered differential, d/w patient, d/w family ED course: 72-year-old female with a history of factor V Leiden deficiency presents with a new DVT in the right lower extremity. She is currently on Lovenox and warfarin. We discussed a repeat ultrasound but I think it is reasonable to hold this at this time. We discussed anticoagulation options and she has chosen to go with Xarelto. She does understand this is not a reversible medication. We will also prescribe pain medication and give her a walker to help her ambulate as she is having pain now in both legs. She has no chest pain or shortness of breath. Counseled that it is important to follow-up closely with her doctor. Patient counseled regarding signs and symptoms for which I believe and urgent re- evaluation would be necessary. Patient with good understanding of and agreement to plan and is comfortable going home at this time This document was made in part using voice recognition software. While efforts are made to proofread this document, sound alike and grammatical errors may occur. Departure - Departure Disposition: 01 Home, Self Care Clinical Impression: DVT (deep venous thrombosis) Qualifiers: DVT location: lower extremity Affected thrombotic vein of extremity: unspecified vein of extremity Chronicity: acute Laterality: right Qualified Code(s): I82.401 - Acute embolism and thrombosis of unspecified deep veins of right lower extremity Condition: Good Instructions: ED DVT Follow-Up: Josy Cooley MD [Primary Care Provider] - Within 1 week Prescriptions: oxyCODONE [Roxicodone] 5 mg PO Q4-6H #14 tablet Rivaroxaban [Xarelto] 15 mg PO BID #42 tablet Comments: We are going to change you from your Coumadin to Xarelto. Please stop the warfarin at home. Start the Xarelto tonight as you took Lovenox this morning. After the 3 weeks at 15 mg twice a day, you will go to 20 mg daily. This will need to be prescribed by your doctor. Do not drink alcohol or drive while on narcotic pain medicine. Note that many narcotic pain relievers also contain tylenol/acetaminophen. Please ensure that your total dose of acetaminophen from all sources does not exceed 3 grams (3000mg) per day. You may constipated on this medication, take a stool softener such as "Colace" twice a day while you are on it. Also recommend a jyxa-yhn-tajekqg laxative such as senna or MiraLAX any day that you do not have a bowel movement. If you received narcotic pain medication in the emergency department, do not dri ve or operate machinery for the next 24 hours. Discharge Date/Time: 08/25/18 12:35
== END 2018-08-25 12:35 | disposition home or self-care (01) ==
LOC: ED 10:54
DX: I82.401 Acute embolism and thrombosis of unspecified deep veins of right lower extremity (principal); D68.51 Activated protein C resistance; Z96.659 Presence of unspecified artificial knee joint; Z79.01 Long term (current) use of anticoagulants
CPT/HCPCS: 99283; 99284

== ENCOUNTER 2018-08-31 13:21 | Outpatient (CLI) | payer MEDICARE | END 2018-08-31 13:22 | disposition home or self-care (01) | LOC: LAB.F 13:21 | PROVIDERS: ATTEND Internal Medicine | DX: I82.402 Acute embolism and thrombosis of unspecified deep veins of left lower extremity (principal) | CPT/HCPCS: 85610 ==

== ENCOUNTER 2018-09-03 10:37 | Outpatient (CLI) | payer MEDICARE | END 2018-09-03 10:38 | disposition home or self-care (01) | LOC: LAB.F 10:37 | PROVIDERS: ATTEND Internal Medicine | DX: Z79.899 Other long term (current) drug therapy (principal); I82.402 Acute embolism and thrombosis of unspecified deep veins of left lower extremity | CPT/HCPCS: 84100; 85610 ==

== ENCOUNTER 2018-09-05 15:21 | Outpatient (CLI) | payer MEDICARE | END 2018-09-05 15:22 | disposition home or self-care (01) | LOC: SC 15:21 | PROVIDERS: ATTEND Nurse Practitioner Family | DX: R06.83 Snoring (principal); R09.02 Hypoxemia; I49.9 Cardiac arrhythmia, unspecified; K74.60 Unspecified cirrhosis of liver; R18.8 Other ascites | CPT/HCPCS: 82247; 82248; 99214; G0463; 99212 ==

== ENCOUNTER 2018-09-05 16:48 | Outpatient (CLI) | payer MEDICARE ==
[2018-09-05 17:18] LABS: BILIRUBIN,DIRECT 2.4 mg/dL (0.1-0.5); BILIRUBIN,INDIRECT 3.9 mg/dL; BILIRUBIN,TOTAL 6.3 mg/dL (0.2-1.0)
== END 2018-09-05 16:49 | disposition home or self-care (01) ==
LOC: LAB 16:48
PROVIDERS: ATTEND Internal Medicine Gastroenterology
DX: K74.60 Unspecified cirrhosis of liver (principal); R18.8 Other ascites
CPT/HCPCS: 82247; 82248

== ENCOUNTER 2018-09-15 08:03 | Outpatient (CLI) | payer MEDICARE ==
[2018-09-15] MEDS ORDERED: IOVERSOL 320 50 ML VIAL ONE (08:11)
[2018-09-15] MEDS ORDERED: IOVERSOL 320 100 ML VIAL IVP ONE ×2 (08:12→08:57)
[2018-09-15] MEDS ORDERED: IOVERSOL 320 50 ML VIAL PO ONE (08:17)
--- NOTE | 2018-09-15 19:28 | CT Report ---
Reason: CIRRHOSIS OF LIVER WITH ASCITES,UNSPECIFIED HEPATI Procedure Date: 09/15/2018 Accession Number: [id number] / [id number] Procedure: CT - Abdomen/Pelvis W/ CPT Code: FULL RESULT: EXAM: CT ABDOMEN AND PELVIS EXAM DATE: 09/15/2018 09:43 AM. CLINICAL HISTORY: CIRRHOSIS OF LIVER WITH Ascites, unspecified HEPATIN. COMPARISONS: ABDOMEN/PELVIS W/ 03/30/2018 1:08 PM ABDOMEN/PELVIS W/ 12/21/2016 4:16 PM. TECHNIQUE: Routine helical CT imaging was performed through the abdomen and pelvis. IV contrast: OPTI 320 100mL. Enteric contrast: Yes. Reconstructions: Coronal and sagittal. In accordance with CT protocol optimization, one or more of the following dose reduction techniques were utilized for this exam: automated exposure control, adjustment of mA and/or KV based on patient size, or use of iterative reconstructive technique. FINDINGS: Lung Bases: 4 mm right lower lobe nodule on image 1. No effusions. Previous groundglass opacities at the bases have resolved. Small paraesophageal hernia with associated esophageal and paraesophageal varices. Mild cardiac enlargement. Liver: Cirrhotic liver without mass or intrahepatic bile duct dilation. The main portal vein is occluded with evidence of cavernous transformation. Gallbladder/Bile Ducts: Cholelithiasis without inflammatory changes of the gallbladder. No common bile duct dilation. Fluid is noted in the gallbladder fossa. Spleen: Enlarged spleen with no mass. Splenorenal shunts are noted. Pancreas: Normal. Adrenal Glands: Normal. Kidneys: Normal. No masses or hydronephrosis. Peritoneal Cavity/Bowel: No pneumoperitoneum, adenopathy, mass or acute inflammation. Mesenteric and omental stranding is noted. At least moderate volume ascites is noted. There are multiple diverticula seen which most severely affect the sigmoid colon. No wall thickening or adjacent inflammation seen. No obstruction noted. Appendix not seen. No right lower quadrant inflammation. Small umbilical fat-containing hernia. Pelvic Organs: Calcified uterine fibroids are noted. Prominent gonadal veins are noted as before. Otherwise, the bladder and visualized pelvic organs are within normal limits. No collections, ascites or adenopathy. Vasculature: See above for description of portal vein thrombosis with cavernous transformation. As before, and large bilateral gonadal veins are noted. Patchy atheromatous plaques are present in the abdominal aorta and branch vessels. No aneurysm. Normal IVC. Bones: DISH is noted in the lower thoracic spine. Multilevel facet arthropathy. Mild L5-S1 degenerative disk disease. No osteoblastic or osteolytic lesions. Other: Whole-body subcutaneous fat stranding is noted. IMPRESSION: 1. Cirrhotic liver. No mass. 2. Portal hypertension as evidenced by splenomegaly and splenorenal and esophageal varices. Enlarged gonadal veins as before. New portal vein thrombosis with cavernous transformation. 3. Moderate abdominal and pelvic ascites. 4. Diverticulosis. No inflammation or obstruction. 5. Cholelithiasis. RADIA
== END 2018-09-15 08:04 | disposition home or self-care (01) ==
LOC: DI 08:03
PROVIDERS: ATTEND Internal Medicine Gastroenterology
DX: K74.60 Unspecified cirrhosis of liver (principal); R18.8 Other ascites; I81 Portal vein thrombosis; K76.6 Portal hypertension; K57.30 Diverticulosis of large intestine without perforation or abscess without bleeding; K80.20 Calculus of gallbladder without cholecystitis without obstruction
CPT/HCPCS: 74177; Q9967

== ENCOUNTER 2018-09-20 09:45 | Outpatient (CLI) | payer MEDICARE ==
[2018-09-20 18:48] LABS: ALBUMIN 2.4 g/dL (3.2-5.5); CALCIUM 8.3 mg/dL (8.5-10.3); CREATININE 0.6 mg/dL (0.4-1.0); PHOSPHORUS 3.2 mg/dL (2.5-4.6)
== END 2018-09-20 09:46 | disposition home or self-care (01) ==
LOC: LAB.F 09:45
PROVIDERS: ATTEND Internal Medicine
DX: I82.402 Acute embolism and thrombosis of unspecified deep veins of left lower extremity (principal); Z79.899 Other long term (current) drug therapy
CPT/HCPCS: 36415; 80069; 85610

== ENCOUNTER 2018-10-03 13:57 | Outpatient (CLI) | payer MEDICARE | END 2018-10-03 13:58 | disposition home or self-care (01) | LOC: LAB.F 13:57 | PROVIDERS: ATTEND Internal Medicine | DX: I82.402 Acute embolism and thrombosis of unspecified deep veins of left lower extremity (principal) | CPT/HCPCS: 85610 ==

== ENCOUNTER 2018-10-08 08:00 | Outpatient (CLI) | payer MEDICARE | END 2018-10-08 08:01 | disposition critical access hospital (66) | LOC: EMS 08:00 | PROVIDERS: ATTEND Surgery | DX: R41.82 Altered mental status, unspecified (principal) | CPT/HCPCS: A0425; A0429 ==

== ENCOUNTER 2018-10-08 08:24 | Inpatient (IN) | payer MEDICARE ==
[2018-10-08] MEDS ORDERED: SODIUM CHLORIDE 0.9% 1,000 ML IV ONE (09:09)
--- NOTE | 2018-10-08 09:16 | ED Physician Documentation ---
PD HPI ALTERED MENTAL STATUS - Stated complaint Stated Complaint: AMS - Chief complaint Chief Complaint: Neuro - History obtained from History obtained from: Patient, Family (), EMS - History of Present Illness Timing - onset: Today Timing - details: Still present Quality / character: Confused Contributing factors: Anticoagulated, Other (liver cirrhosis) Basline status: Alert and oriented X 3, Ambulatory, Independent Similar symptoms before: Has not had sx before - Additional information Additional information: The patient is a 73-year-old female with a history of myeloproliferative disorder, factor V Leiden, nonalcoholic liver cirrhosis, portal vein thrombosis and DVTs, on warfarin, who presents with acute onset altered mental status this morning. Her , who provides history, states that she was normal at 8:00 last night. This morning he found her disoriented in the bathroom, standing, holding onto the towel rack. She repeatedly told him, "I am fine." However it was clear to him that she was confused. Although she has a history of jaundice, she has no prior history of mental confusion. There is no recent history of fever, cough, or vomiting. Review of her medical records reveals that she was hospitalized in March 2018 with pneumonia. Review of Systems Unable to obtain: AMS Constitutional: denies: Fever Cardiac: denies: Chest pain / pressure Respiratory: denies: Dyspnea, Cough GI: denies: Abdominal Pain, Vomiting Skin: denies: Rash Neurologic: reports: Confused, Altered mental status. denies: Headache PD PAST MEDICAL HISTORY - Past Medical History Cardiovascular: Congestive heart failure, Deep vein thrombosis Respiratory: Asthma, Pneumonia, Other Endocrine/Autoimmune: None GI: Hemorrhoids, Cirrhosis : None HEENT: Dental implants Psych: None Musculoskeletal: None Derm: None Other Past Medical History: Myeloproliferative disorder, with myelofibrosis; factor V Leiden deficiency; nonalcoholic liver cirrhosis. - Past Surgical History Past Surgical History: Yes Ortho: Knee replacement /[employer]: Dilation and currettage HEENT: Tonsil/Adenoidectomy - Present Medications Home Medications: Ambulatory Orders Medication Instructions Recorded Confirmed Warfarin [Coumadin] 2.5 mg PO DAILY 03/14/17 10/08/18 Omeprazole 20 mg PO DAILY #30 tablet. 03/29/18 10/08/18 Furosemide [Lasix] 40 mg PO BID 06/05/18 10/08/18 Nadolol 10 mg PO DAILY 06/05/18 10/08/18 Spironolactone [Aldactone] 50 mg PO BID 06/05/18 10/08/18 Multivitamin [Multiple Vitamins] 1 tab PO DAILY 10/08/18 10/08/18 Sertraline [Zoloft] 25 mg PO DAILY 10/08/18 10/08/18 - Allergies Allergies/Adverse Reactions: Allergies Allergy/AdvReac Type Severity Reaction Status Date / Time paper tape AdvReac Rash Uncoded 10/08/18 08:36 - Social History Does the pt smoke?: No Smoking Status: Never smoker Does the pt drink ETOH?: Yes Does the pt have substance abuse?: No - Immunizations Immunizations are current?: Yes - POLST Patient has POLST: No POLST Status: Full Code PD ED PE NORMAL - Vitals Vital signs reviewed: Yes (Normal) - General General: Well developed/nourished, Other (Alert but disoriented, not able to even guess at the year.) - HEENT HEENT: Atraumatic, PERRL, Moist mucous membranes - Neck Neck: Supple, no meningeal sign, No adenopathy, No JVD - Cardiac Cardiac: RRR - Respiratory Respiratory: No respiratory distress, Clear bilaterally - Abdomen Abdomen: Soft, Non tender, Other (Hepatomegaly.) - Back Back: No CVA TTP - Derm Derm: No rash, Other (Jaundiced appearing.) - Extremities Extremities: No calf tenderness / cord, Other (1+ pedal edema bilaterally.) - Neuro Neuro: No motor deficit, Other (Alert, disoriented and confused. Moving all extremities well.) Eye Opening: Spontaneous Motor: Obeys Commands Verbal: Confused GCS Score: 14 Results - Vitals Vitals: Vital Signs - 24 hr 10/08/18 10/08/18 10/08/18 08:30 09:09 11:29 Temperature 35.5 C L Heart Rate 53 L 54 L 54 L Respiratory 23 14 18 Rate Blood Pressure 134/63 H 118/52 L 110/80 O2 Saturation 95 98 99 Oxygen O2 Source Room air - Labs Labs: Laboratory Tests 10/08/18 10/08/18 10/08/18 10:11 10:11 10:38 WBC 38.7 H* RBC 3.67 L Hgb 13.3 Hct 40.4 MCV 110.1 H MCH 36.3 H MCHC 33.0 RDW 18.2 H Plt Count 141 MPV 9.2 Neut # (Auto) Not Reportable Lymph # (Auto) Not Reportable Tarrant # (Auto) Not Reportable Eos # (Auto) Not Reportable Baso # (Auto) Not Reportable Absolute Nucleated RBC Not Reportable Total Counted 100 Band Neuts % (Manual) 14 H Abnorm Lymph % (Manual) 0 Metamyelocytes % 2 H Nucleated RBC % Not Reportable Neutrophils # (Manual) 34.1 H Lymphocytes # (Manual) 0.4 L Monocytes # (Manual) 2.7 H Eosinophils # (Manual) 0.0 Basophils # (Manual) 0.8 H Differential Comment MANUAL DIFFERENTIAL RBC Morph Micro Appear 1+ OVALOCYTES PT INR Sodium Potassium Chloride Carbon Dioxide Anion Gap BUN Creatinine Estimated GFR (MDRD) Glucose Lactic Acid 2.0 Calcium Total Bilirubin AST ALT Alkaline Phosphatase Ammonia 87.7 H* Total Protein Albumin Globulin Albumin/Globulin Ratio Lipase Urine Color Urine Clarity Urine pH Ur Specific [place] Urine Protein Urine Glucose (UA) Urine Ketones Urine Occult Blood Urine Nitrite Urine Bilirubin Urine Urobilinogen Ur Leukocyte Esterase Urine RBC Urine WBC Ur Epithelial Cells Ur Squamous Epith Cells Urine Bacteria Urine Casts Urine Mucus Ur Microscopic Review Urine Culture Comments 10/08/18 10/08/18 10/08/18 10:38 10:38 12:24 WBC RBC Hgb Hct MCV MCH MCHC RDW Plt Count MPV Neut # (Auto) Lymph # (Auto) Tarrant # (Auto) Eos # (Auto) Baso # (Auto) Absolute Nucleated RBC Total Counted Band Neuts % (Manual) Abnorm Lymph % (Manual) Metamyelocytes % Nucleated RBC % Neutrophils # (Manual) Lymphocytes # (Manual) Monocytes # (Manual) Eosinophils # (Manual) Basophils # (Manual) Differential Comment RBC Morph Micro Appear PT 35.1 H INR 3.2 H Sodium 128 L Potassium 4.1 Chloride 95 L Carbon Dioxide 23 Anion Gap 10.0 BUN 22 H Creatinine 0.8 Estimated GFR (MDRD) 70 L Glucose 109 H Lactic Acid Calcium 8.5 Total Bilirubin 4.3 H AST 70 H ALT 39 Alkaline Phosphatase 195 H Ammonia Total Protein 7.1 Albumin 2.3 L Globulin 4.8 H Albumin/Globulin Ratio 0.5 L Lipase 56 H Urine Color DARK YELLOW Urine Clarity CLEAR Urine pH 6.0 Ur Specific [place] 1.025 Urine Protein NEGATIVE Urine Glucose (UA) NEGATIVE Urine Ketones NEGATIVE Urine Occult Blood NEGATIVE Urine Nitrite NEGATIVE Urine Bilirubin SMALL H Urine Urobilinogen 1 (NORMAL) Ur Leukocyte Esterase SMALL H Urine RBC 6-10 H Urine WBC 11-25 H Ur Epithelial Cells RARE Transitional Ur Squamous Epith Cells RARE Squamous Urine Bacteria Many H Urine Casts 0-2 Granular Casts Urine Mucus Few Strands Ur Microscopic Review INDICATED Urine Culture Comments INDICATED - Rads (name of study) head CT Radiology: Prelim report reviewed, EMP read contemporaneously, See rad report (No acute abnormality of the head demonstrated.) PD MEDICAL DECISION MAKING - ED course Complexity details: reviewed old records, reviewed results, re-evaluated patient, considered differential, d/w patient, d/w family, d/w production consultant ED course: The patient's presentation is significant for altered mental status due to liver cirrhosis with elevated ammonia level of 87.7. Her total bilirubin is elevated at 4.3. Head CT without contrast reveals no acute abnormality. She has an elevated white blood cell count of 38.7, which is similar to previous levels, due to her myeloproliferative disorder. There history of DVTs and portal vein thrombosis, she is on warfarin, and her INR is in the therapeutic range at 3.2. Treatment in the emergency department included administration of normal saline IV and lactulose 20 g orally. I discussed her condition with Dr. Masters, the hospitalist, who accepts her for further evaluation and treatment. Departure - Departure Disposition: [facility] DC/Xfer Clinical Impression: Hyperammonemia, Non-alcoholic cirrhosis, Myeloproliferative disorder Condition: Stable Discharge Date/Time: 10/08/18 13:45
--- NOTE | 2018-10-08 10:37 | CT Report ---
Reason: New onset confusion; anticoagulated; possible fall Procedure Date: 10/08/2018 Accession Number: [id number] / [id number] Procedure: CT - HEAD WO CPT Code: FULL RESULT: EXAM: CT HEAD EXAM DATE: 10/08/2018 09:45 AM. CLINICAL HISTORY: New onset confusion; anticoagulated; possible fall. COMPARISON: HEAD W/O 03/10/2018 8:23 PM. TECHNIQUE: Multiaxial CT images were obtained from the foramen magnum to the vertex. Reformats: Sagittal and coronal. IV contrast: None. In accordance with CT protocol optimization, one or more of the following dose reduction techniques were utilized for this exam: automated exposure control, adjustment of mA and/or KV based on patient size, or use of iterative reconstructive technique. FINDINGS: Parenchyma: No intraparenchymal hemorrhage. No evidence of mass, midline shift, or CT findings of acute infarction. Tobin-white differentiation is distinct. Extraaxial Spaces: Normal for age. No subdural or epidural collections identified. Ventricles: The ventricles and cortical sulci within normal range for the patient's age. Sinuses and orbits: Imaged paranasal sinuses, orbits, and mastoids show no significant abnormality. Bones: No evidence of fracture or calvarial defect. Other: None. IMPRESSION: No acute abnormality of the head demonstrated. RADIA
[2018-10-08 10:52] LABS: BASOPHILS % (AUTO) 1.2 %; EOSINOPHILS % (AUTO) 0.3 %; HGB - HEMOGLOBIN 13.3 g/dL (12.0-16.0); LYMPHOCYTES % (AUTO) 2.7 %; MEAN CORPUSCULAR HEMOGLOBIN 36.3 pg (27.0-31.0); MEAN CORPUSCULAR VOLUME 110.1 fL (81.0-99.0); MEAN PLATELET VOLUME 9.2 fL (7.9-10.8); MONOCYTES % (AUTO) 1.7 %; NEUTROPHILS % (AUTO) 94.1 %; PLT - PLATELET COUNT 141 10^3/uL (130-450); RED BLOOD COUNT 3.67 10^6/uL (4.20-5.40); RED CELL DISTRIBUTION WIDTH 18.2 % (12.0-15.0)
[2018-10-08 10:54] LABS: INR 3.2 (0.8-1.2); PT - PROTHROMBIN TIME 35.1 secs (9.9-12.6)
[2018-10-08] MEDS ORDERED: LACTULOSE 10 GM /15 ML UDC PO STA (10:57)
[2018-10-08 10:59] LABS: WHITE BLOOD COUNT 38.7 x10^3/uL (4.8-10.8)
[2018-10-08 11:00] LABS: ALBUMIN 2.3 g/dL (3.2-5.5); ALBUMIN/GLOBULIN RATIO 0.5 (1.0-2.2); BILIRUBIN,TOTAL 4.3 mg/dL (0.2-1.0); CALCIUM 8.5 mg/dL (8.5-10.3); CREATININE 0.8 mg/dL (0.4-1.0); TOTAL PROTEIN 7.1 g/dL (6.7-8.2)
[2018-10-08 11:01] LABS: ABNORMAL LYMPHS % (MANUAL) 0 %
[2018-10-08 11:09] LABS: BAND NEUTROPHILS % (MANUAL) 14 %; BASOPHILS # (MANUAL) 0.8 10^3/uL (0-0.1); BASOPHILS % (MANUAL) 2 %; LYMPHOCYTES # (MANUAL) 0.4 10^3/uL (1.5-3.5); LYMPHOCYTES % (MANUAL) 1 %; METAMYELOCYTES % (MANUAL) 2 %; MONOCYTES # (MANUAL) 2.7 10^3/uL (0.0-1.0); NEUTROPHILS # (MANUAL) 34.1 10^3/uL (1.5-6.6); NEUTROPHILS % (MANUAL) 74 %
[2018-10-08 11:11] LABS: DIFFERENTIAL COMMENT MANUAL DIFFERENTIAL
[2018-10-08 12:31] LABS: BILIRUBIN,URINE SMALL (NEGATIVE); CLARITY,URINE CLEAR (CLEAR); GLUCOSE, URINE (UA) NEGATIVE (NEGATIVE); ICTOTEST,URINE POSITIVE; KETONES,URINE (UA) NEGATIVE (NEGATIVE); LEUKOCYTE ESTERASE, URINE SMALL (NEGATIVE); NITRITE,URINE NEGATIVE (NEGATIVE); OCCULT BLOOD,URINE NEGATIVE (NEGATIVE); PROTEIN,URINE NEGATIVE (NEGATIVE); UROBILINOGEN,URINE 1 (NORMAL) E.U./dL (NORMAL)
[2018-10-08 12:53] LABS: BACTERIA,URINE Many /HPF (None Seen); EPITHELIAL CELLS,UR RARE Transitional /HPF (<= Few); MUCUS,URINE Few Strands; SQUAMOUS EPITHELIAL CELL,UR RARE Squamous (<= Few)
[2018-10-08] MEDS ORDERED: PROCHLORPERAZINE 10 MG/2 ML VIAL IVP PRN (13:03)
[2018-10-08] MEDS ORDERED: SODIUM CHLORIDE FLUSH 0.9% 10 ML SYRINGE IVP PRN (13:03)
[2018-10-08] MEDS ORDERED: IOVERSOL 320 50 ML VIAL ONE (14:05)
--- NOTE | 2018-10-08 15:52 | CT Report ---
Reason: Non-alc cirhosis, new confuion, eval liver, ?SBP Procedure Date: 10/08/2018 Accession Number: [id number] / [id number] Procedure: CT - Abdomen/Pelvis WO CPT Code: FULL RESULT: EXAM: CT ABDOMEN AND PELVIS EXAM DATE: 10/08/2018 03:00 PM. CLINICAL HISTORY: Non-alcoholic cirrhosis, new confusion, evaluate liver, question SBP. COMPARISONS: Abdomen/pelvis with contrast 09/15/2018 9:43 AM. TECHNIQUE: Routine helical CT imaging was performed through the abdomen and pelvis. IV contrast: No. Enteric contrast: No. Reconstructions: Coronal and sagittal. In accordance with CT protocol optimization, one or more of the following dose reduction techniques were utilized for this exam: automated exposure control, adjustment of mA and/or KV based on patient size, or use of iterative reconstructive technique. FINDINGS: Lung Bases: Dependent changes at the right lung base, possibly compressive atelectasis given the ascites. Liver: Normal. No masses. Gallbladder/Bile Ducts: Cholelithiasis again seen. Spleen: Mild splenomegaly, 15 cm. Pancreas: Normal. Adrenal Glands: Normal. Kidneys: Normal. No masses or hydronephrosis. Peritoneal Cavity/Bowel: There is moderate volume ascites. A small umbilical hernia contains fluid. There is no bowel obstruction or free air. Pelvic Organs: Normal. The bladder and visualized pelvic organs are within normal limits. Vasculature: No aneurysms or other significant abnormality. Bones: No significant abnormality. Other: Generalized anasarca is noted. IMPRESSION: Limited evaluation in absence of contrast is notable for anasarca and ascites. RADIA
[2018-10-08] MEDS: WARFARIN 2.5 MG TABLET PO SCH (16:20)
[2018-10-08] MEDS: SODIUM CHLORIDE FLUSH 0.9% 10 ML SYRINGE IVP SCH (16:22)
[2018-10-08] MEDS: LACTULOSE 10 GM /15 ML UDC PO SCH ×2 (16:56→21:37)
[2018-10-08] MEDS ORDERED: GADOBUTROL 10 MMOL/10 ML VIAL ONE (17:48)
--- NOTE | 2018-10-08 18:34 | XRAY Report ---
Reason: eval for pneumonia Procedure Date: 10/08/2018 Accession Number: [id number] / [id number] Procedure: XR - Chest 2 View X-Ray CPT Code: 76602 FULL RESULT: EXAM: CHEST RADIOGRAPHY EXAM DATE: 10/08/2018 02:52 PM. CLINICAL HISTORY: Eval for pneumonia. COMPARISON: CHEST 1 VIEW 03/30/2018 9:54 AM. TECHNIQUE: 2 views. FINDINGS: Lungs/Pleura: Linear atelectasis/scarring at the right base. No pulmonary edema. No pneumothorax. No dense confluent consolidation. Mediastinum: Heart and mediastinal contours are unremarkable. Other: None. IMPRESSION: No acute radiographic pulmonary abnormalities. RADIA
[2018-10-08] MEDS ORDERED: GADOBUTROL 10 MMOL/10 ML VIAL IVP ONE (18:57)
--- NOTE | 2018-10-08 19:10 | MRI Report ---
Reason: Stuttering speech, poss TIA Procedure Date: 10/08/2018 Accession Number: [id number] / [id number] Procedure: MRI - Brain W/WO CPT Code: FULL RESULT: EXAM: MRI BRAIN WITHOUT AND WITH CONTRAST EXAM DATE: 10/08/2018 06:54 PM. CLINICAL HISTORY: Stuttering speech and confusion. Possible TIA. COMPARISON: No prior brain MRI. Head ct w/o 10/08/2018 9:35 AM. TECHNIQUE: Sagittal and axial T1, axial DWI, axial gradient-echo, axial T2 FLAIR, coronal fat-suppressed T2 and gadolinium enhanced coronal axial and sagittal T1. 9 mm IV Gadavist. FINDINGS: Brain Volume: Normal for age. Parenchyma: No restricted diffusion to suggest acute or recent ischemic infarct. No cerebral hemorrhage. No brain swelling or edema. No mass-effect, midline shift or abnormal subdural fluid collection. Mild white matter disease. There are several scattered foci of patchy and nodular foci of white matter T2 hyperintensity in both cerebral hemispheres likely secondary to aging and chronic microangiopathy. No intracranial enhancing or space-occupying mass. Ventricles/Cisterns: No hydrocephalus. No abnormal extra-axial fluid collection or hemorrhage. Orbits: Symmetric and unremarkable. Sella Turcica: The pituitary gland, cavernous sinuses, suprasellar cistern and optic chiasm are unremarkable. IAC: Symmetric and unremarkable. Vasculature: Normal signal flow void is seen in the major arterial structures at the skull base. The dural sinuses are patent and enhance normally. Sinuses: No acute sinus disease. Bones: Incidental hyperostosis frontalis interna. Other: None. IMPRESSION: Mild chronic age-related changes. No acute abnormality or enhancing mass. RADIA
--- NOTE | 2018-10-08 20:00 | HISTORY & PHYSICAL EXAMINATION ---
DATE OF SERVICE: 10/08/2018 Physician: Rosalva Masters MD HISTORY OF PRESENT ILLNESS: A 73-year-old white female with a history of nonalcoholic cirrhosis, diagnosed in 2018. She follows with a tile installer four times a year, has never had significant ascites or metabolic encephalopathy with this. She also has a history of myeloproliferative cancer and always runs very high white blood counts. She has a history of factor V Leiden mutation and has a history of DVT and is on Coumadin. She has had four pneumonias over the past several years; the most recent was 03/2018. Patient has been doing well, all her ADLs independently, and able to do all housework except cook because of "poor balance". This morning when she awoke normally, she was confused, speaking with only short sentences, did not know where she was, and the called an ambulance. In the emergency room, she continued to be initially confused, and labs came back showing a high ammonia level, and she received one dose of po Lactulose 20 mL. As she was being admitted, she has become more coherent, can now remember being in the emergency room, but not anything about this morning in the house or the ambulance ride. In fact, she confabulated and thought that her brought her and that she walked in from the car to the ER. She also assumed that she would be here for a prolonged course and was very upset about staying, but said that this was because the last time she was being evaluated for her liver, it took 10 days until she was discharged. PAST MEDICAL HISTORY 1. Nonalcoholic cirrhosis. 2. Myeloproliferative cancer. 3. Factor V Leiden mutation. 4. Deep vein thrombosis, on Coumadin. ALLERGIES: PAPER TAPE. MEDICATIONS 1. Multivitamin daily. 2. Lasix 40 mg p.o. b.i.d. 3. Warfarin 2.5 mg daily. 4. Spironolactone 50 mg b.i.d. 5. Zoloft 25 mg daily. 6. Omeprazole 20 mg daily. 7. Nadolol 10 mg daily. REVIEW OF SYSTEMS: The patient's reports that when she was here with the pneumonia last year, she was sent for outpatient workup to a Pig Handler and Clinical Education Specialist because of the shortness of breath, and the Pig Handler told her that her lungs are fine, and the Clinical Education Specialist told her that she may have heart failure, but "she is stable for a 72-year-old". There has been no recent fever, no travel, or URI symptoms. The patient remembers that when she got Gastrografin, she got diarrhea; therefore, she refused this when her CT scan was to be done today. She gets chronic leg edema, worse at the end of the day. She gets occasional abdominal swelling, and she thinks that today is a "moderate swelling day." She follows a strict low-salt diet, and she has not had any alcohol in over a year. A comprehensive review of systems was performed and the pertinent positives are listed; the rest are negative. FAMILY HISTORY: No inherited diseases. SOCIAL HISTORY: Social alcohol before 1 year ago, none now. She never smoked, uses no drugs. 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 She lives with her and an adult daughter. PHYSICAL EXAMINATION GENERAL: White female who appears older than her age. 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 She is in no distress. She is alert and oriented x3 currently. VITAL SIGNS: Blood pressure 118/52, pulse 54 in sinus rhythm, afebrile, room air saturation 98%. HEENT: Reveals the above description. Oral mucosa is moist. She has poor dentition and is poorly kempt. NECK: No JVD or carotid bruits. LUNGS: Clear. HEART: Sounds normal. No murmur, gallop or heave. ABDOMEN: Soft, nontender, mildly distended, possible hepatomegaly several fingerbreadths below the right costal margin. There is no fluid wave. No tenderness or guarding or rebound. Legs show venous stasis and 2+ edema to below the knees. NEUROLOGIC: Oriented x3. No liver flap, no nystagmus. A mini-mental exam showed that she responded to everything normally, except could not remember the events of earlier today whatsoever until she got to the emergency room. LABS: Sodium 128, potassium 4.1, BUN 22, creatinine 0.8. Lactic acid level 2. Bilirubin 4.3, AST 70, ALT 39; these are her average AST and ALT levels. Ammonia level 87.7, and she has never had an ammonia level done here before. Albumin is low at 2.3, lipase 56. INR 3.2, but she is on Coumadin. White blood count 38.7, and she normally runs 22 to 55. Hemoglobin 13, MCV high at 110, platelet count normal at 141. Urinalysis showed pH of 1.025, small bilirubin, small leukocyte esterase, high white cells, many bacteria, and culture was indicated. No EKG was done. IMAGING: A head CT was done that showed no acute abnormality. A chest x-ray showed no pulmonary abnormalities and heart size was normal. Abdomen and pelvis CT done without IV contrast and without Gastrografin oral contrast showed ascites present in the abdomen and pelvis, and there is also anasarca described. The liver size is described as "normal, no masses." There is mild splenomegaly of 15 cm. IMPRESSION/DIAGNOSES 1. Hepatic encephalopathy with elevation of ammonia, but also other causes of abnormal speech and confusion should be evaluated, such as TIA, SBP, or UTI adding to the problem. 2. History of nonalcoholic cirrhosis. 3. Myeloproliferative cancer with very high white cell count chronically. 4. Factor V Leiden mutation. 5. History of deep venous thrombosis, on Coumadin, with therapeutic INR. 6. Hyponatremia. PLAN 1. Admit the patient to a Med/Surg bed. 2. Begin po Lactulose treatment q.i.d. to treat the confusion and high ammonia. She received saline in the emergency room; however, this will not be used since it would potentially add to her ascites, especially given the low SERUM oncotic pressure with low albumin. 3. Continue with a diet that is low-salt. 4. Stop the Lasix and spironolactone currently, since she has mild pre-renal azotemia. 5. Continue with the Coumadin and follow her INR daily. 6. Follow ammonia level and liver function tests daily. 7. The brain CT was negative, but we will proceed to a brain MRI to evaluate for changes for a TIA or CVA. 8. Urine will also be sent for culture since her serum white count is not reliable enough to be treated definitely for a UTI since it is always high. CODE STATUS: FULL CODE. DEEP VENOUS THROMBOSIS PROPHYLAXIS: She is on therapeutic Coumadin. ATTESTATION: The patient is expected to be discharged or transferred to another facility within 96 hours: Yes. TD: 10/08/2018 18:55 [facility]
[2018-10-08] MEDS: FAMOTIDINE 20 MG TABLET PO SCH (21:36)
[2018-10-08] MEDS ORDERED: SERTRALINE 25 MG TABLET PO STA (22:27)
[2018-10-09] MEDS: SODIUM CHLORIDE FLUSH 0.9% 10 ML SYRINGE IVP SCH ×3 (00:05→16:36)
[2018-10-09 06:07] LABS: BASOPHILS % (AUTO) 0.6 %; EOSINOPHILS % (AUTO) 1.4 %; HGB - HEMOGLOBIN 11.3 g/dL (12.0-16.0); MEAN CORPUSCULAR HGB CONC 32.5 g/dL (32.0-36.0); MEAN CORPUSCULAR VOLUME 110.7 fL (81.0-99.0); MEAN PLATELET VOLUME 8.5 fL (7.9-10.8); MONOCYTES % (AUTO) 1.4 %; NEUTROPHILS % (AUTO) 91.6 %; PLT - PLATELET COUNT 133 10^3/uL (130-450); RED BLOOD COUNT 3.13 10^6/uL (4.20-5.40); RED CELL DISTRIBUTION WIDTH 18.3 % (12.0-15.0); WHITE BLOOD COUNT 32.5 x10^3/uL (4.8-10.8)
[2018-10-09 06:11] LABS: INR 3.5 (0.8-1.2); PT - PROTHROMBIN TIME 38.9 secs (9.9-12.6)
[2018-10-09 06:12] LABS: ABNORMAL LYMPHS % (MANUAL) 0 %
[2018-10-09 06:17] LABS: ALBUMIN 1.9 g/dL (3.2-5.5); ALBUMIN/GLOBULIN RATIO 0.5 (1.0-2.2); BILIRUBIN,TOTAL 3.7 mg/dL (0.2-1.0); CALCIUM 7.9 mg/dL (8.5-10.3); CREATININE 0.6 mg/dL (0.4-1.0); TOTAL PROTEIN 5.4 g/dL (6.7-8.2)
[2018-10-09 06:55] LABS: BAND NEUTROPHILS % (MANUAL) 22 %; BASOPHILS # (MANUAL) 0.7 10^3/uL (0-0.1); BASOPHILS % (MANUAL) 2 %; LYMPHOCYTES % (MANUAL) 6 %; METAMYELOCYTES % (MANUAL) 1 %; MONOCYTES # (MANUAL) 0.7 10^3/uL (0.0-1.0); NEUTROPHILS # (MANUAL) 28.9 10^3/uL (1.5-6.6); NEUTROPHILS % (MANUAL) 67 %
[2018-10-09 06:56] LABS: PLATELET ESTIMATE, MANUAL DECREASED (<130,000) (NORMAL)
--- NOTE | 2018-10-09 07:12 | PROVIDER PROGRESS NOTE ---
Subjective - Prog Note Date Prog Note Date: 10/09/18 Prog Note Time: 14:07 - Subjective Pt reports feeling: Improved Subjective: She says that she is all better. She did not realize her confusion was yesterday. But today she thinks it still the weekend. Still unclear about facts. She would like to go home today but realizes she still has a bit of confusion to clear up. Denies any chest pain, shortness of breath, abdominal pain. Overnight there were no fevers, pulse is been stable as has been blood pressure. Current Medications - Current Medications Current Medications: Active Medications Famotidine (Pepcid) 20 mg PO BID [facility] Last Admin: 10/08/18 21:36 Dose: 20 mg Lactulose (Enulose) 10 gm PO QID [facility] Last Admin: 10/08/18 21:37 Dose: 10 gm Multivitamins (Theragran) 1 tab PO DAILY [facility] Nadolol (Corgard) 10 mg PO DAILY [facility] Polyethylene Glycol (Miralax) 17 gm PO DAILY [facility] Prochlorperazine Edisylate (Compazine Inj) 10 mg IVP Q6HR PRN PRN Reason: Nausea / Vomiting Sertraline HCl (Zoloft) 25 mg PO DAILY [facility] Sodium Chloride (Normal Saline Flush 0.9%) 10 ml IVP PRN PRN PRN Reason: NEEDED PER PROVIDER ORDERS Sodium Chloride (Normal Saline Flush 0.9%) 10 ml IVP 0100,0900,1700 [facility] Last Admin: 10/09/18 00:05 Dose: 10 ml Spironolactone (Aldactone) 50 mg PO BID [facility] Warfarin Sodium (Coumadin) 2.5 mg PO 1400 [facility] Last Admin: 10/08/18 16:20 Dose: Not Given Warfarin [Coumadin] 2.5 mg PO DAILY 03/14/17 Furosemide [Lasix] 40 mg PO BID 06/05/18 Nadolol 10 mg PO DAILY 06/05/18 Spironolactone [Aldactone] 50 mg PO BID 06/05/18 Multivitamin [Multiple Vitamins] 1 tab PO DAILY 10/08/18 Sertraline [Zoloft] 25 mg PO DAILY 10/08/18 Objective - Vital Signs/Intake & Output Reviewed Vital Signs: Yes Vital Signs: Vital Signs x48h Temp Pulse Resp BP Pulse Ox 10/09/18 03:52 36.8 C 65 18 102/52 L 97 10/08/18 23:53 36.7 C 66 16 121/65 96 Intake & Output: Intake & Output 10/06/18 10/07/18 10/08/18 10/09/18 23:59 23:59 23:59 23:59 Intake Total 200 Output Total 400 Balance 200 -400 - Objective General Appearance: positive: Alert Eyes Bilateral: positive: PERRL ENT: positive: Pharynx nml Neck: positive: No JVD. negative: Stiff neck, Carotid bruit Respiratory: positive: Chest non-tender. negative: Wheezes, Rales, Rhonchi Cardiovascular: positive: Regular rate & rhythm, Systolic murmur. negative: Gallop/S4, Friction rub Abdomen: positive: Non-tender, Other (mild distension.). negative: Guarding, Rebound Skin: positive: Warm, Dry Extremities: positive: No pedal edema Neurologic/Psychiatric: positive: Oriented x3, CN's nml (2-12), Motor nml, Disoriented to time (occasionally) - Lab Results Fish Bones: 10/09/18 05:50 10/09/18 05:50 Other Labs: Lab Results x24hrs 10/09/18 10/09/18 10/09/18 Range/Units 05:50 05:50 05:50 WBC (4.8-10.8) x10^3/uL RBC (4.20-5.40) 10^6/uL Hgb (12.0-16.0) g/dL Hct (37.0-47.0) % MCV (81.0-99.0) fL MCH (27.0-31.0) pg MCHC (32.0-36.0) g/dL RDW (12.0-15.0) % Plt Count (130-450) 10^3/uL MPV (7.9-10.8) fL Neut # (Auto) Lymph # (Auto) [place] # (Auto) Eos # (Auto) Baso # (Auto) Absolute Nucleated RBC Total Counted Band Neuts % (Manual) (0 - 10) % Abnorm Lymph % (Manual) % Metamyelocytes % ( - 0) % Nucleated RBC % Neutrophils # (Manual) (1.5-6.6) 10^3/uL Lymphocytes # (Manual) (1.5-3.5) 10^3/uL Monocytes # (Manual) (0.0-1.0) 10^3/uL Eosinophils # (Manual) (0-0.7) 10^3/uL Basophils # (Manual) (0-0.1) 10^3/uL Differential Comment Platelet Estimate (NORMAL) RBC Morph Micro Appear (NORMAL) PT 38.9 H (9.9-12.6) secs INR 3.5 H (0.8-1.2) Sodium 126 L (135-145) mmol/L Potassium 3.9 (3.5-5.0) mmol/L Chloride 97 L (101-111) mmol/L Carbon Dioxide 23 (21-32) mmol/L Anion Gap 6.0 (6-13) BUN 19 (6-20) mg/dL Creatinine 0.6 (0.4-1.0) mg/dL Estimated GFR (MDRD) 98 (>89) Glucose 80 (70-100) mg/dL Lactic Acid (0.5-2.2) mmol/L Calcium 7.9 L (8.5-10.3) mg/dL Total Bilirubin 3.7 H (0.2-1.0) mg/dL AST 56 H (10-42) IU/L ALT 33 (10-60) IU/L Alkaline Phosphatase 154 H (42-121) IU/L Ammonia 47.0 H (7-35) umol/L Total Protein 5.4 L (6.7-8.2) g/dL Albumin 1.9 L (3.2-5.5) g/dL Globulin 3.5 (2.1-4.2) g/dL Albumin/Globulin Ratio 0.5 L (1.0-2.2) Lipase (22-51) U/L Urine Color Urine Clarity (CLEAR) Urine pH (5.0-7.5) PH Ur Specific [place] (1.002-1.030) Urine Protein (NEGATIVE) mg/dL Urine Glucose (UA) (NEGATIVE) mg/dL Urine Ketones (NEGATIVE) mg/dL Urine Occult Blood (NEGATIVE) Urine Nitrite (NEGATIVE) Urine Bilirubin (NEGATIVE) Urine Urobilinogen (NORMAL) E.U./dL Ur Leukocyte Esterase (NEGATIVE) Urine RBC (0-5) /HPF Urine WBC (0-5) /HPF Ur Epithelial Cells (<= Few) /HPF Ur Squamous Epith Cells (<= Few) Urine Bacteria (None Seen) /HPF Urine Casts /LPF Urine Mucus Ur Microscopic Review Urine Culture Comments 10/09/18 10/08/18 10/08/18 Range/Units 05:50 12:24 10:38 WBC 32.5 H (4.8-10.8) x10^3/uL RBC 3.13 L (4.20-5.40) 10^6/uL Hgb 11.3 L (12.0-16.0) g/dL Hct 34.6 L (37.0-47.0) % MCV 110.7 H (81.0-99.0) fL MCH 36.0 H (27.0-31.0) pg MCHC 32.5 (32.0-36.0) g/dL RDW 18.3 H (12.0-15.0) % Plt Count 133 (130-450) 10^3/uL MPV 8.5 (7.9-10.8) fL Neut # (Auto) Not Reportable Lymph # (Auto) Not Reportable [place] # (Auto) Not Reportable Eos # (Auto) Not Reportable Baso # (Auto) Not Reportable Absolute Nucleated RBC Not Reportable Total Counted 100 Band Neuts % (Manual) 22 H (0 - 10) % Abnorm Lymph % (Manual) 0 % Metamyelocytes % 1 H ( - 0) % Nucleated RBC % Not Reportable Neutrophils # (Manual) 28.9 H (1.5-6.6) 10^3/uL Lymphocytes # (Manual) 2.0 (1.5-3.5) 10^3/uL Monocytes # (Manual) 0.7 (0.0-1.0) 10^3/uL Eosinophils # (Manual) 0.0 (0-0.7) 10^3/uL Basophils # (Manual) 0.7 H (0-0.1) 10^3/uL Differential Comment Platelet Estimate DECREASED (<130,000) (NORMAL) RBC Morph Micro Appear 2+ MACROCYTOSIS (NORMAL) PT (9.9-12.6) secs INR (0.8-1.2) Sodium 128 L (135-145) mmol/L Potassium 4.1 (3.5-5.0) mmol/L Chloride 95 L (101-111) mmol/L Carbon Dioxide 23 (21-32) mmol/L Anion Gap 10.0 (6-13) BUN 22 H (6-20) mg/dL Creatinine 0.8 (0.4-1.0) mg/dL Estimated GFR (MDRD) 70 L (>89) Glucose 109 H (70-100) mg/dL Lactic Acid (0.5-2.2) mmol/L Calcium 8.5 (8.5-10.3) mg/dL Total Bilirubin 4.3 H (0.2-1.0) mg/dL AST 70 H (10-42) IU/L ALT 39 (10-60) IU/L Alkaline Phosphatase 195 H (42-121) IU/L Ammonia (7-35) umol/L Total Protein 7.1 (6.7-8.2) g/dL Albumin 2.3 L (3.2-5.5) g/dL Globulin 4.8 H (2.1-4.2) g/dL Albumin/Globulin Ratio 0.5 L (1.0-2.2) Lipase 56 H (22-51) U/L Urine Color DARK YELLOW Urine Clarity CLEAR (CLEAR) Urine pH 6.0 (5.0-7.5) PH Ur Specific [place] 1.025 (1.002-1.030) Urine Protein NEGATIVE (NEGATIVE) mg/dL Urine Glucose (UA) NEGATIVE (NEGATIVE) mg/dL Urine Ketones NEGATIVE (NEGATIVE) mg/dL Urine Occult Blood NEGATIVE (NEGATIVE) Urine Nitrite NEGATIVE (NEGATIVE) Urine Bilirubin SMALL H (NEGATIVE) Urine Urobilinogen 1 (NORMAL) (NORMAL) E.U./dL Ur Leukocyte Esterase SMALL H (NEGATIVE) Urine RBC 6-10 H (0-5) /HPF Urine WBC 11-25 H (0-5) /HPF Ur Epithelial Cells RARE Transitional (<= Few) /HPF Ur Squamous Epith Cells RARE Squamous (<= Few) Urine Bacteria Many H (None Seen) /HPF Urine Casts 0-2 Granular Casts /LPF Urine Mucus Few Strands Ur Microscopic Review INDICATED Urine Culture Comments INDICATED 10/08/18 10/08/18 10/08/18 Range/Units 10:38 10:38 10:11 WBC 38.7 H* (4.8-10.8) x10^3/uL RBC 3.67 L (4.20-5.40) 10^6/uL Hgb 13.3 (12.0-16.0) g/dL Hct 40.4 (37.0-47.0) % MCV 110.1 H (81.0-99.0) fL MCH 36.3 H (27.0-31.0) pg MCHC 33.0 (32.0-36.0) g/dL RDW 18.2 H (12.0-15.0) % Plt Count 141 (130-450) 10^3/uL MPV 9.2 (7.9-10.8) fL Neut # (Auto) Not Reportable Lymph # (Auto) Not Reportable [place] # (Auto) Not Reportable Eos # (Auto) Not Reportable Baso # (Auto) Not Reportable Absolute Nucleated RBC Not Reportable Total Counted 100 Band Neuts % (Manual) 14 H (0 - 10) % Abnorm Lymph % (Manual) 0 % Metamyelocytes % 2 H ( - 0) % Nucleated RBC % Not Reportable Neutrophils # (Manual) 34.1 H (1.5-6.6) 10^3/uL Lymphocytes # (Manual) 0.4 L (1.5-3.5) 10^3/uL Monocytes # (Manual) 2.7 H (0.0-1.0) 10^3/uL Eosinophils # (Manual) 0.0 (0-0.7) 10^3/uL Basophils # (Manual) 0.8 H (0-0.1) 10^3/uL Differential Comment MANUAL DIFFERENTIAL Platelet Estimate (NORMAL) RBC Morph Micro Appear 1+ OVALOCYTES (NORMAL) PT 35.1 H (9.9-12.6) secs INR 3.2 H (0.8-1.2) Sodium (135-145) mmol/L Potassium (3.5-5.0) mmol/L Chloride (101-111) mmol/L Carbon Dioxide (21-32) mmol/L Anion Gap (6-13) BUN (6-20) mg/dL Creatinine (0.4-1.0) mg/dL Estimated GFR (MDRD) (>89) Glucose (70-100) mg/dL Lactic Acid (0.5-2.2) mmol/L Calcium (8.5-10.3) mg/dL Total Bilirubin (0.2-1.0) mg/dL AST (10-42) IU/L ALT (10-60) IU/L Alkaline Phosphatase (42-121) IU/L Ammonia 87.7 H* (7-35) umol/L Total Protein (6.7-8.2) g/dL Albumin (3.2-5.5) g/dL Globulin (2.1-4.2) g/dL Albumin/Globulin Ratio (1.0-2.2) Lipase (22-51) U/L Urine Color Urine Clarity (CLEAR) Urine pH (5.0-7.5) PH Ur Specific [place] (1.002-1.030) Urine Protein (NEGATIVE) mg/dL Urine Glucose (UA) (NEGATIVE) mg/dL Urine Ketones (NEGATIVE) mg/dL Urine Occult Blood (NEGATIVE) Urine Nitrite (NEGATIVE) Urine Bilirubin (NEGATIVE) Urine Urobilinogen (NORMAL) E.U./dL Ur Leukocyte Esterase (NEGATIVE) Urine RBC (0-5) /HPF Urine WBC (0-5) /HPF Ur Epithelial Cells (<= Few) /HPF Ur Squamous Epith Cells (<= Few) Urine Bacteria (None Seen) /HPF Urine Casts /LPF Urine Mucus Ur Microscopic Review Urine Culture Comments 10/08/18 Range/Units 10:11 WBC (4.8-10.8) x10^3/uL RBC (4.20-5.40) 10^6/uL Hgb (12.0-16.0) g/dL Hct (37.0-47.0) % MCV (81.0-99.0) fL MCH (27.0-31.0) pg MCHC (32.0-36.0) g/dL RDW (12.0-15.0) % Plt Count (130-450) 10^3/uL MPV (7.9-10.8) fL Neut # (Auto) Lymph # (Auto) [place] # (Auto) Eos # (Auto) Baso # (Auto) Absolute Nucleated RBC Total Counted Band Neuts % (Manual) (0 - 10) % Abnorm Lymph % (Manual) % Metamyelocytes % ( - 0) % Nucleated RBC % Neutrophils # (Manual) (1.5-6.6) 10^3/uL Lymphocytes # (Manual) (1.5-3.5) 10^3/uL Monocytes # (Manual) (0.0-1.0) 10^3/uL Eosinophils # (Manual) (0-0.7) 10^3/uL Basophils # (Manual) (0-0.1) 10^3/uL Differential Comment Platelet Estimate (NORMAL) RBC Morph Micro Appear (NORMAL) PT (9.9-12.6) secs INR (0.8-1.2) Sodium (135-145) mmol/L Potassium (3.5-5.0) mmol/L Chloride (101-111) mmol/L Carbon Dioxide (21-32) mmol/L Anion Gap (6-13) BUN (6-20) mg/dL Creatinine (0.4-1.0) mg/dL Estimated GFR (MDRD) (>89) Glucose (70-100) mg/dL Lactic Acid 2.0 (0.5-2.2) mmol/L Calcium (8.5-10.3) mg/dL Total Bilirubin (0.2-1.0) mg/dL AST (10-42) IU/L ALT (10-60) IU/L Alkaline Phosphatase (42-121) IU/L Ammonia (7-35) umol/L Total Protein (6.7-8.2) g/dL Albumin (3.2-5.5) g/dL Globulin (2.1-4.2) g/dL Albumin/Globulin Ratio (1.0-2.2) Lipase (22-51) U/L Urine Color Urine Clarity (CLEAR) Urine pH (5.0-7.5) PH Ur Specific [place] (1.002-1.030) Urine Protein (NEGATIVE) mg/dL Urine Glucose (UA) (NEGATIVE) mg/dL Urine Ketones (NEGATIVE) mg/dL Urine Occult Blood (NEGATIVE) Urine Nitrite (NEGATIVE) Urine Bilirubin (NEGATIVE) Urine Urobilinogen (NORMAL) E.U./dL Ur Leukocyte Esterase (NEGATIVE) Urine RBC (0-5) /HPF Urine WBC (0-5) /HPF Ur Epithelial Cells (<= Few) /HPF Ur Squamous Epith Cells (<= Few) Urine Bacteria (None Seen) /HPF Urine Casts /LPF Urine Mucus Ur Microscopic Review Urine Culture Comments ABX Reporting Has patient been on IV antibiotics over the past 48 hours?: No Assessment/Plan - Problem List (1) Hepatic encephalopathy Impression: Causing confusion. She has responded to lactulose. She is much better and ammonia levels are down. She is anxious to go home today but have asked her to please stay another day in view of the fact that she still mildly confused, and ammonia could be more improved. She is willing to stay. (2) Leukocytosis Impression: Urinalysis was positive for were red cells, white cells, bacteria. Culture has polymicrobial growth however. Blood cultures are negative. Patient does not have a fever. Considering her impressive the urinalysis, I would empirically treat for UTI. Plan: Nitrofurantoin twice daily Qualifiers: Leukocytosis type: unspecified Qualified Code(s): D72.829 - Elevated white blood cell count, unspecified (3) Factor V Leiden mutation Impression: With a history of a DVT. Patient is on Coumadin. INR was 3.2 yesterday. Coumadin continued and she is 3.5 today. Will hold the next 2 days doses. (4) Hyponatremia Impression: She started getting hyponatremic in March of last year. She was 134 then. Dropped to 1 13 September 2018, and has been between 124 and 129 since that time. This goes along with her encephalopathy,. CT of the abdomen done October 08 shows the splenomegaly, moderate volume ascites.Treatment usually consist of fluid restriction, gentle diuresis. While here she is received normal saline in the form of IV fluids. But that was only a liter yesterday and 350 cc today. (5) Non-alcoholic cirrhosis Impression: This is a fernanda lady who has been seen by gastroenterology for times a year. She has not known to have ascites. This is a clear progression of her disease. She will be started on a beta-ran, spironolactone. She will need to be seen in the outpatient setting by her java web application developer for new medical regime and to be followed for progression of her disease.
[2018-10-09] MEDS ORDERED: WARFARIN 5 MG TABLET PO SCH (09:00)
[2018-10-09] MEDS ORDERED: NADOLOL 20 MG TABLET PO SCH ×2 (09:00→21:00)
[2018-10-09] MEDS: POLYETHYLENE GLYCOL 3350 17 GM PACKET PO SCH (09:47)
[2018-10-09] MEDS: LACTULOSE 10 GM /15 ML UDC PO SCH ×4 (09:47→20:18)
[2018-10-09] MEDS: SERTRALINE 25 MG TABLET PO SCH (09:48)
[2018-10-09] MEDS: MULTIVITAMIN TABLET PO SCH (09:48)
[2018-10-09] MEDS: FAMOTIDINE 20 MG TABLET PO SCH ×2 (09:48→20:18)
[2018-10-09] MEDS: SPIRONOLACTONE 25 MG TABLET PO SCH ×2 (09:48→20:16)
[2018-10-09] MEDS: WARFARIN 2.5 MG TABLET PO SCH (13:18)
[2018-10-09] MEDS: NITROFURANTOIN MACRO 100 MG CAPSULE PO SCH (20:22)
[2018-10-10] MEDS: SODIUM CHLORIDE FLUSH 0.9% 10 ML SYRINGE IVP SCH ×2 (00:31→09:21)
[2018-10-10 05:02] LABS: BASOPHILS # (AUTO) 0.3 10^3/uL (0.0-0.1); BASOPHILS % (AUTO) 0.9 %; EOSINOPHILS # (AUTO) 0.4 10^3/uL (0.0-0.7); EOSINOPHILS % (AUTO) 1.2 %; HGB - HEMOGLOBIN 11.4 g/dL (12.0-16.0); LYMPHOCYTES # (AUTO) 1.8 10^3/uL (1.5-3.5); LYMPHOCYTES % (AUTO) 5.3 %; MEAN CORPUSCULAR HGB CONC 32.5 g/dL (32.0-36.0); MEAN CORPUSCULAR VOLUME 110.9 fL (81.0-99.0); MEAN PLATELET VOLUME 8.4 fL (7.9-10.8); MONOCYTES % (AUTO) 2.9 %; NEUTROPHILS # (AUTO) 30.1 10^3/uL (1.5-6.6); NEUTROPHILS % (AUTO) 89.7 %; PLT - PLATELET COUNT 118 10^3/uL (130-450); PT - PROTHROMBIN TIME 33.6 secs (9.9-12.6); RED BLOOD COUNT 3.16 10^6/uL (4.20-5.40); RED CELL DISTRIBUTION WIDTH 18.7 % (12.0-15.0); WHITE BLOOD COUNT 33.5 x10^3/uL (4.8-10.8)
[2018-10-10 05:11] LABS: ALBUMIN 2.1 g/dL (3.2-5.5); ALBUMIN/GLOBULIN RATIO 0.6 (1.0-2.2); BILIRUBIN,TOTAL 3.4 mg/dL (0.2-1.0); CALCIUM 8.5 mg/dL (8.5-10.3); CREATININE 0.9 mg/dL (0.4-1.0); TOTAL PROTEIN 5.6 g/dL (6.7-8.2)
[2018-10-10 06:07] LABS: PLATELET ESTIMATE, MANUAL DECREASED (<130,000) (NORMAL)
[2018-10-10] MEDS ORDERED: rifAXIMin 550 MG TABLET PO SCH (09:00)
[2018-10-10] MEDS ORDERED: SENNA 8.6 MG TABLET PO SCH (09:00)
[2018-10-10] MEDS: MULTIVITAMIN TABLET PO SCH (09:14)
[2018-10-10] MEDS: NITROFURANTOIN MACRO 100 MG CAPSULE PO SCH (09:14)
[2018-10-10] MEDS: FAMOTIDINE 20 MG TABLET PO SCH (09:14)
[2018-10-10] MEDS: SERTRALINE 25 MG TABLET PO SCH (09:14)
[2018-10-10] MEDS: POLYETHYLENE GLYCOL 3350 17 GM PACKET PO SCH (09:15)
[2018-10-10] MEDS: SPIRONOLACTONE 25 MG TABLET PO SCH (09:15)
[2018-10-10] MEDS: LACTULOSE 10 GM /15 ML UDC PO SCH ×2 (09:16→13:12)
--- NOTE | 2018-10-10 11:31 | PROVIDER PROGRESS NOTE ---
Subjective - Prog Note Date Prog Note Date: 10/10/18 Prog Note Time: 11:32 - Subjective Subjective: alert, doesn't realize some of her memory deficits. wants to go home. Not much BM with lactulose. Current Medications - Current Medications Current Medications: Active Medications Famotidine (Pepcid) 20 mg PO BID [facility] Last Admin: 10/10/18 09:14 Dose: 20 mg Lactulose (Enulose) 15 gm PO QID [facility] Last Admin: 10/10/18 09:16 Dose: 15 gm Multivitamins (Theragran) 1 tab PO DAILY [facility] Last Admin: 10/10/18 09:14 Dose: 1 tab Nadolol (Corgard) 10 mg PO QPM [facility] Last Admin: 10/09/18 20:21 Dose: 10 mg Nitrofurantoin (Macrobid) 100 mg PO BID [facility] Last Admin: 10/10/18 09:14 Dose: 100 mg Polyethylene Glycol (Miralax) 17 gm PO DAILY [facility] Last Admin: 10/10/18 09:15 Dose: 17 gm Prochlorperazine Edisylate (Compazine Inj) 10 mg IVP Q6HR PRN PRN Reason: Nausea / Vomiting Rifaximin (Xifaxan) 550 mg PO BID [facility] Last Admin: 10/10/18 09:14 Dose: 550 mg Senna (Senokot) 8.6 - 17.2 mg PO DAILY [facility] Last Admin: 10/10/18 09:21 Dose: Not Given Sertraline HCl (Zoloft) 25 mg PO DAILY [facility] Last Admin: 10/10/18 09:14 Dose: 25 mg Sodium Chloride (Normal Saline Flush 0.9%) 10 ml IVP PRN PRN PRN Reason: NEEDED PER PROVIDER ORDERS Sodium Chloride (Normal Saline Flush 0.9%) 10 ml IVP 0100,0900,1700 [facility] Last Admin: 10/10/18 09:21 Dose: Not Given Spironolactone (Aldactone) 50 mg PO BID [facility] Last Admin: 10/10/18 09:15 Dose: 50 mg Warfarin [Coumadin] 2.5 mg PO DAILY 03/14/17 Furosemide [Lasix] 40 mg PO BID 06/05/18 Nadolol 10 mg PO DAILY 06/05/18 Spironolactone [Aldactone] 50 mg PO BID 06/05/18 Multivitamin [Multiple Vitamins] 1 tab PO DAILY 10/08/18 Sertraline [Zoloft] 25 mg PO DAILY 10/08/18 Objective - Vital Signs/Intake & Output Reviewed Vital Signs: Yes Vital Signs: Vital Signs x48h Temp Pulse Resp BP Pulse Ox 10/10/18 07:58 36.9 C 60 20 105/52 L 94 10/10/18 04:16 36.5 C 60 18 113/62 95 Intake & Output: Intake & Output 10/07/18 10/08/18 10/09/18 10/10/18 23:59 23:59 23:59 23:59 Intake Total 1200 800 360 Output Total 400 300 Balance 1200 400 60 - Objective General Appearance: positive: No acute distress, Alert, Other (sitting up at side of bed. ate breakfast) Eyes Bilateral: positive: PERRL, EOMI ENT: positive: Pharynx nml Neck: positive: No JVD. negative: Stiff neck, Carotid bruit Respiratory: positive: Chest non-tender. negative: Wheezes, Rales, Rhonchi Cardiovascular: positive: Irregularly irregular, Systolic murmur. negative: Gallop/S4, Friction rub Abdomen: positive: Other (distended w ascites, NABS, nontender. no hepatomegaly.) Skin: positive: Warm, Dry, Pallor Extremities: positive: Full ROM, Pedal edema Neurologic/Psychiatric: positive: Oriented x3 (but forgets meds, forgets time, loses track of conversation often.), CN's nml (2-12), Motor nml - Lab Results Fish Bones: 10/10/18 04:45 10/10/18 04:45 Other Labs: Lab Results x24hrs 10/10/18 10/10/18 10/10/18 Range/Units 04:45 04:45 04:45 WBC (4.8-10.8) x10^3/uL RBC (4.20-5.40) 10^6/uL Hgb (12.0-16.0) g/dL Hct (37.0-47.0) % MCV (81.0-99.0) fL MCH (27.0-31.0) pg MCHC (32.0-36.0) g/dL RDW (12.0-15.0) % Plt Count (130-450) 10^3/uL MPV (7.9-10.8) fL Neut # (Auto) (1.5-6.6) 10^3/uL Lymph # (Auto) (1.5-3.5) 10^3/uL [place] # (Auto) (0.0-1.0) 10^3/uL Eos # (Auto) (0.0-0.7) 10^3/uL Baso # (Auto) (0.0-0.1) 10^3/uL Absolute Nucleated RBC x10^3/uL Nucleated RBC % /100WBC Manual Slide Review Platelet Estimate (NORMAL) RBC Morph Micro Appear (NORMAL) PT 33.6 H (9.9-12.6) secs INR 3.0 H (0.8-1.2) Sodium 134 L (135-145) mmol/L Potassium 4.2 (3.5-5.0) mmol/L Chloride 103 (101-111) mmol/L Carbon Dioxide 24 (21-32) mmol/L Anion Gap 7.0 (6-13) BUN 19 (6-20) mg/dL Creatinine 0.9 (0.4-1.0) mg/dL Estimated GFR (MDRD) 61 L (>89) Glucose 100 (70-100) mg/dL Calcium 8.5 (8.5-10.3) mg/dL Total Bilirubin 3.4 H (0.2-1.0) mg/dL AST 60 H (10-42) IU/L ALT 33 (10-60) IU/L Alkaline Phosphatase 177 H (42-121) IU/L Ammonia 79.4 H (7-35) umol/L Total Protein 5.6 L (6.7-8.2) g/dL Albumin 2.1 L (3.2-5.5) g/dL Globulin 3.5 (2.1-4.2) g/dL Albumin/Globulin Ratio 0.6 L (1.0-2.2) 10/10/18 Range/Units 04:45 WBC 33.5 H (4.8-10.8) x10^3/uL RBC 3.16 L (4.20-5.40) 10^6/uL Hgb 11.4 L (12.0-16.0) g/dL Hct 35.0 L (37.0-47.0) % MCV 110.9 H (81.0-99.0) fL MCH 36.0 H (27.0-31.0) pg MCHC 32.5 (32.0-36.0) g/dL RDW 18.7 H (12.0-15.0) % Plt Count 118 L (130-450) 10^3/uL MPV 8.4 (7.9-10.8) fL Neut # (Auto) 30.1 H (1.5-6.6) 10^3/uL Lymph # (Auto) 1.8 (1.5-3.5) 10^3/uL [place] # (Auto) 1.0 (0.0-1.0) 10^3/uL Eos # (Auto) 0.4 (0.0-0.7) 10^3/uL Baso # (Auto) 0.3 H (0.0-0.1) 10^3/uL Absolute Nucleated RBC 0.00 x10^3/uL Nucleated RBC % 0.0 /100WBC Manual Slide Review Indicated Platelet Estimate DECREASED (<130,000) (NORMAL) RBC Morph Micro Appear 1+ MACROCYTOSIS (NORMAL) PT (9.9-12.6) secs INR (0.8-1.2) Sodium (135-145) mmol/L Potassium (3.5-5.0) mmol/L Chloride (101-111) mmol/L Carbon Dioxide (21-32) mmol/L Anion Gap (6-13) BUN (6-20) mg/dL Creatinine (0.4-1.0) mg/dL Estimated GFR (MDRD) (>89) Glucose (70-100) mg/dL Calcium (8.5-10.3) mg/dL Total Bilirubin (0.2-1.0) mg/dL AST (10-42) IU/L ALT (10-60) IU/L Alkaline Phosphatase (42-121) IU/L Ammonia (7-35) umol/L Total Protein (6.7-8.2) g/dL Albumin (3.2-5.5) g/dL Globulin (2.1-4.2) g/dL Albumin/Globulin Ratio (1.0-2.2) ABX Reporting Has patient been on IV antibiotics over the past 48 hours?: No Assessment/Plan - Problem List (1) Hepatic encephalopathy Impression: Causing confusion. She had responded to lactulose. She was much better and ammonia levels were down. She was still confused somewhat and would forget she got meds, perseverate with nursing and demand to get her meds. Reminded she got them and she would't believe them. She is anxious to go home but I have asked her to please stay. Today her ammonia level is up. Lactulose is increased and Rifamximin 550 mg po bid started. (2) Leukocytosis Impression: Urinalysis was positive for were red cells, white cells, bacteria. Culture has polymicrobial growth however. Blood cultures are negative. Patient does not have a fever. Considering her impressive the urinalysis, I am empirically treating for UTI. Macrobid Day #2. Plan: Nitrofurantoin twice daily Qualifiers: Leukocytosis type: unspecified Qualified Code(s): D72.829 - Elevated white blood cell count, unspecified (3) Factor V Leiden mutation Impression: With a history of a DVT. Patient is on Coumadin. INR was 3.2 on 10/08. Coumadin continued and she was 3.5 on 10/09. Will hold 10/09 and 09/30 doses. (4) Hyponatremia Impression: She started getting hyponatremic in March of last year. She was 134 then. Dropped to 1 13 September 2018, and has been between 124 and 129 since that time. This goes along with her encephalopathy,. CT of the abdomen done October 08 shows the splenomegaly, moderate volume ascites.Treatment usually consist of fluid restriction, gentle diuresis. While here she is received normal saline in the form of IV fluids. But that was only a liter 10/08 and 350 cc by afternoon 10/09. (5) Non-alcoholic cirrhosis Impression: This is a fernanda lady who has been seen by gastroenterology for times a year. She has not known to have ascites. This is a clear progression of her disease. She will be started on a beta-ran, spironolactone. She will need to be seen in the outpatient setting by her pasting inspector for new medical regime and to be followed for progression of her disease. I did call her GI specialist, Juan Carlos Greenfield MD @ [phone] and she was off today. Dr. Hernandez @ [phone] is professor of education and I have left him a message to call me.
--- NOTE | 2018-10-10 14:01 | Discharge Plan ---
Discharge Plan Disposition: Home, Self Care Condition: Good Prescriptions: Lactulose 15 gm PO TID #1350 bottle Nadolol 10 mg PO DAILY #30 tablet Nitrofurantoin [Macrobid] 100 mg PO BID #10 capsule rifAXIMin [Xifaxan] 550 mg PO BID #60 tablet Spironolactone [Aldactone] 100 mg PO BID #60 tablet Diet: Low Sodium Activity Restrictions: Activity as Tolerated Shower Restrictions: No Driving Restrictions: No Additional Instructions or Follow Up instructions: You were admitted to the hospital because of confusion. There are many reasons someone can have confusion if they have cirrhosis. We found you to have a mild urinary tract infection. You have been having diarrhea after having contrast for CT scan of the abdomen earlier this month. Most likely that is the cause of the urinary tract infection. We also evaluated you for stroke and the CT of the head was negative. We did find your ammonia level to be high. This is seen with cirrhosis and liver failure. We have started you on lactulose and rifaximin. These are 2 new medicines we use in the treatment of cirrhosis. I have spoken to your gastroenterology office. The gastroenterology physician on-call, Dr. Hernandez, would like you to: +Taper off your nadolol +Stay on the same Lasix but increase it to 40 mg twice a day. +Increase your Spironolactone 100 mg twice a day. +With these changes in your medication it is very important that you get a BMP done in a week to check potassium, and kidney function + Continue the same fluids you are drinking every day. + See Dr. Cherry in one week. +continue the lactulose 3 times a day, and rifaximin twice a day As for your urinary tract infection, finish the macrobid twice a day. While you are these new medicines, this can change your INR that you use to measure your coumadin effectiveness. Make sure your INR is checked weekly. Do not take coumadin for today. Resume it tomorrow since your INR is >3. No Smoking: If you smoke, Please STOP! Call for help. Follow-up with: Josy Cooley MD [Primary Care Provider] - ALLYSON CHERRY MD [Physician No Access] -
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
[2018-10-10 15:07] VITALS: BP 103/54
[2018-10-10] MEDS ORDERED: NADOLOL 20 MG TABLET PO SCH (21:00)
[2018-10-10] MEDS ORDERED: SPIRONOLACTONE 25 MG TABLET PO SCH (21:00)
[2018-10-11] MEDS ORDERED: SERTRALINE 50 MG TABLET PO SCH (09:00)
--- NOTE | 2018-10-12 02:32 | DISCHARGE SUMMARY ---
Physician: Terri Dominguez MD DATE OF ADMISSION: 10/08/2018 DATE OF DISCHARGE: 10/10/2018 DISCHARGE DIAGNOSES 1. Hepatic encephalopathy. 2. Nonalcoholic cirrhosis. 3. Cirrhosis with ascites. 4. Urinary tract infection. 5. Myeloproliferative disorder. 6. Factor V Leiden deficiency. 7. Hyponatremia. 8. Supratherapeutic international normalized ratio. DISCHARGE MEDICATIONS 1. Lasix 40 mg p.o. b.i.d. 2. Spironolactone 100 mg p.o. b.i.d. is a new prescription from 50 mg p.o. b.i.d. 3. Rifaximin 550 mg p.o. b.i.d. is a new prescription. 4. Macrobid 100 mg p.o. b.i.d., #10 is a new prescription. 5. Nadolol. To be tapered off 10 mg daily for a week, followed by 1 every other day for a week, the n 1 twice that week on third week. 5. Lactulose new prescription 15 grams p.o. t.i.d. 6. Coumadin 2.5 mg daily is to be held on 10/10/2018. Check INR 10/12/2018 to see when to resume. 7. Zoloft 25 mg daily. 8. Multivitamin daily. PRINCIPAL PROCEDURES 1. Head CT. With no acute abnormality of the head demonstrated/ 2. Abdomen and pelvis CT. Shows dependent changes of the right lung base with compressive atelectas is. Liver without masses. Cholelithiasis seen. Mild splenomegaly. Moderate volume ascites with a small umbilical hernia containing fluid. 3. Chest x-ray with no acute radiographic abnormalities. 4. Brain MRI. With white matter disease that is mild. Scattered foci of patchy and nodular foci. Probable chronic microangiopathy and aging. No intracranial enhancing or space-occupying mass. Inci dental hyperostosis frontalis interna. HISTORY AND HOSPITAL COURSE: The patient is a pleasant 73-year-old female who regarded herself as re latively healthy with problems of a little bit of blood pressure. She had gone traveling to [place] a nd had flown back over a year ago and in the post travel state, was identified as having a DVT. She then was subsequently identified as having factor V Leiden deficiency and myeloproliferative disorder . She has had 4 episodes of pneumonia over the past several years, with the most recent admission [facility] 2017. In March of 2018, she had gradually expanding abdominal girth and was diagnosed as having nonalcohol ic/cryptogenic cirrhosis with ascites. She is followed by gastroenterology clinic at [facility] and is on spironolactone 50 mg daily, Lasix 40 mg daily. She is adamant that she is not supposed to take it twice a day, but once a day. She is also on nadolol. Coumadin has been prescribed for her f actor V Leiden deficiency and DVT. She feels that she must take the Coumadin because she developed p ortal vein thrombosis when she had stopped the Coumadin for a scan. She has been relatively stable. Her ADLs are independent. This morning when she awoke, her found her to be confused, speaking with only short sentences, did not know where she was. He called the ambulance. In the emergency room, she was confused, and evaluation found her to have a high ammo carmenza level. She was given lactulose. As she was being admitted, she became more coherent and could r emember being in the emergency room, but nothing about being in her house this morning or being confu sed this morning. She was placed in the hospital with the idea that she may have an encephalopathy or acute neurologica l event. A CT of the head and MRIs were done. Those were negative. She was felt to be encephalopat hic from liver disease and ammonia level. She was started on lactulose and had improvement. Over next 48 hours, she continued to slowly improve with a vivacious personality and multiple questions. On the day of discharge, her felt that she was back to baseline. Baseline is not completel y oriented, however. She has word finding difficulties, sometimes gets confused about timeline refer ences in her past, and she will perseverate. 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 Abdomen was slightly distended from her cirrhosis and ascites, but it was not painful. UTI was ident ified on admission and treated with antibiotics. Culture was eventually negative and was polymicrobi al, but she was still completing therapy. Blood cultures were negative after 2 days. She did not florez ve lactic acidosis. Her myeloproliferative disorder remained stable with a white cell count of 38,000. At discharge, she was 33,000. She was continued on her Coumadin until her INR became too prolonged. INR was started at 3.2 and jose to 3.5. With antibiotics I feared that she would get even more prolonged. Coumadin was held on 10/09/2018 and and on 10/10/2018 she was 3.0. I am asking her to hold her Cou madin one more day on 10/11/2018 and then take it on 10/12/2018. Hyponatremia was at 128 on admissio n and was 134 by discharge. Ammonia level started at 87 and came down to 47, but went up to 79. Aga in, the patient was felt to be baseline by her in spite of the ammonia level of 79. She was increased to 15 grams of lactulose 3 times a day with that. I spoke to the magnetic doctor visual education teacher for Dr. Greenfield. Dr. Hernandez was visual education teacher. He requested that w e slowly taper off her nadolol or start that process and do 40 mg of Lasix b.i.d. and spironolactone 100 mg b.i.d. I told the patient she needs to get a BMP in the next week because of the increase in diuretics. He also agreed with the starting of lactulose and rifaximin. The patient was discharged in stable condition, however, with a guarded prognosis. Her disease seems to be progressing over the last year. She has esophageal varices on EGD done in April 2018 by Colleen kim, portal vein thrombosis, worsening ascites and, now, the encephalopathy. Dr. Hernandez wonders if the UTI is what gave her the encephalopathy. She is not having a GI bleed. PHYSICAL EXAMINATION VITAL SIGNS: On the day of discharge, temperature is 36.7, pulse 59, blood pressure 103/54, respirat ions 18 and 94% on room air. GENERAL APPEARANCE: She is a sallow skinned white female who looks older than stated age. She is al ert and, for the most part, oriented consistently. No asterixis. No tremors. Slowly able to sit up in transfer in bed and get into a chair. LUNGS: The lungs have diminished sounds at the bases. Occasionally, she will have a crackle, but th at clears with a deep cough. HEART: She has a regular rate and rhythm with a soft systolic ejection murmur. ABDOMEN: Soft, slightly tympanitic from fluid with a fluid wave palpable. While she is diffusely ac hy, there is no rebound, no guarding and no tenderness. EXTREMITIES: The extremities have slight edema. She is asked to followup with her primary care provider, Dr. Cooley, also to followup with Dr. Kelly gomez. Dr. Hernandez has already written a note in her chart at the [facility] and he is [facility] to make an appointment for her with Dr. Greenfield next week. Greater than 30 minutes was spent coordinating discharge. TD: 10/11/2018 18:10
== END 2018-10-10 15:37 | disposition home or self-care (01) | DRG 442 ==
LOC: EDUNIT# → ED 08:24 → MS2 13:03
PROVIDERS: ADMIT Internal Medicine; ATTEND Specialist
DX: K72.90 Hepatic failure, unspecified without coma (principal); C94.6 Myelodysplastic disease, not elsewhere classified; N39.0 Urinary tract infection, site not specified; I50.9 Heart failure, unspecified; J45.909 Unspecified asthma, uncomplicated; E87.1 Hypo-osmolality and hyponatremia; D68.51 Activated protein C resistance; R18.8 Other ascites; K74.69 Other cirrhosis of liver; Z86.718 Personal history of other venous thrombosis and embolism; Z79.01 Long term (current) use of anticoagulants; Z87.01 Personal history of pneumonia (recurrent); Z96.659 Presence of unspecified artificial knee joint
CPT/HCPCS: 36415; 70450; 70553; 71046; 74176; 80053; 81001; 81003; 82140; 83605; 83690; 85025; 85610; 87040; 87086; 99284; 99285

== ENCOUNTER 2018-10-12 11:25 | Outpatient (CLI) | payer MEDICARE ==
[2018-10-12 12:15] LABS: CALCIUM 8.4 mg/dL (8.5-10.3); CREATININE 0.9 mg/dL (0.4-1.0)
== END 2018-10-12 11:26 | disposition home or self-care (01) ==
LOC: LAB 11:25
PROVIDERS: ATTEND Internal Medicine
DX: Z79.899 Other long term (current) drug therapy (principal)
CPT/HCPCS: 36415; 80048

== ENCOUNTER 2018-10-17 08:35 | Outpatient (CLI) | payer MEDICARE | END 2018-10-17 08:36 | disposition home or self-care (01) | LOC: LAB.F 08:35 | PROVIDERS: ATTEND Internal Medicine | DX: I82.402 Acute embolism and thrombosis of unspecified deep veins of left lower extremity (principal) | CPT/HCPCS: 85610 ==

== ENCOUNTER 2018-10-25 13:43 | Outpatient (CLI) | payer MEDICARE ==
[2018-10-25 20:54] LABS: BILIRUBIN,DIRECT 1.8 mg/dL (0.1-0.5); BILIRUBIN,TOTAL 4.4 mg/dL (0.2-1.0); CALCIUM 8.5 mg/dL (8.5-10.3); CREATININE 1.1 mg/dL (0.4-1.0); PHOSPHORUS 4.4 mg/dL (2.5-4.6); TOTAL PROTEIN 5.8 g/dL (6.7-8.2)
== END 2018-10-25 13:44 | disposition home or self-care (01) ==
LOC: LAB.F 13:43
PROVIDERS: ATTEND Internal Medicine
DX: K74.60 Unspecified cirrhosis of liver (principal); Z79.899 Other long term (current) drug therapy; I82.402 Acute embolism and thrombosis of unspecified deep veins of left lower extremity
CPT/HCPCS: 36415; 80048; 80076; 84100; 85610

== ENCOUNTER 2018-10-26 11:39 | Outpatient (CLI) | payer MEDICARE | END 2018-10-26 11:40 | disposition home or self-care (01) | LOC: LAB 11:39 | PROVIDERS: ATTEND Internal Medicine | DX: E87.5 Hyperkalemia (principal) | CPT/HCPCS: 36415; 84132 ==

== ENCOUNTER 2018-10-27 07:42 | Outpatient (CLI) | payer MEDICARE | END 2018-10-27 07:43 | disposition critical access hospital (66) | LOC: EMS 07:42 | PROVIDERS: ATTEND Surgery | DX: R41.0 Disorientation, unspecified (principal) | CPT/HCPCS: A0425; A0429 ==

== ENCOUNTER 2018-10-27 07:48 | Inpatient (IN) | payer MEDICARE ==
[2018-10-27] MEDS ORDERED: LACTULOSE 10 GM /15 ML UDC PO STA (08:02)
--- NOTE | 2018-10-27 08:02 | ED Physician Documentation ---
PD HPI ALTERED MENTAL STATUS - Stated complaint Stated Complaint: ALOC - Chief complaint Chief Complaint: Neuro - History obtained from History obtained from: Patient, EMS - History of Present Illness Timing - onset: Today Timing - duration: Hours Timing - details: Gradual onset, Still present Quality / character: Confused Associated symptoms: No: Fever, Headache, Stiff neck, Dyspnea, Cough, NVD, Urinary sx, General weakness, Focal weakness, Seizure activity, Syncope Contributing factors: Anticoagulated Basline status: Alert and oriented X 3, Ambulatory, Independent Similar symptoms before: Diagnosis (hepatic encephalopathy) Recently seen: Admitted - Additional information Additional information: 73-year-old female with a history of nonalcoholic cirrhosis and factor V Leiden has developed acute confusion this morning consistent with what she is had previously with an elevated ammonia level. Medics report that the reported the patient to be in her normal state of health yesterday evening and this morning clearly confused. The patient gives very little history has mostly a blank stare and answers questions appropriately with a smile. She denies any specific illness and indicates that she has been taking her lactulose. She has had a recent hospital admission for hepatic encephalopathy in September of this year several weeks ago with an ammonia level up to 87.7. She was increased On her Lasix Spironolactone and lactulose and Xifaxan was added. Review of Systems Unable to obtain: Confused Constitutional: denies: Fever, Chills, Myalgias Eyes: denies: Decreased vision Ears: denies: Ear pain Nose: denies: Rhinorrhea / runny nose, Congestion Throat: denies: Sore throat Cardiac: denies: Chest pain / pressure, Palpitations Respiratory: denies: Dyspnea, Cough GI: denies: Abdominal Pain, Nausea, Vomiting : denies: Dysuria, Frequency Skin: denies: Rash Musculoskeletal: denies: Neck pain, Back pain Neurologic: reports: Confused. 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 03/29/18 10/08/18 Furosemide [Lasix] 40 mg PO BID 06/05/18 10/08/18 Multivitamin [Multiple Vitamins] 1 tab PO DAILY 10/08/18 10/08/18 Sertraline [Zoloft] 25 mg PO DAILY 10/08/18 10/08/18 Lactulose 15 gm PO TID #1350 bottle 10/10/18 Nadolol 10 mg PO DAILY #30 tablet 10/10/18 Nitrofurantoin [Macrobid] 100 mg PO BID #10 capsule 10/10/18 Spironolactone [Aldactone] 100 mg PO BID #60 tablet 10/10/18 rifAXIMin [Xifaxan] 550 mg PO BID #60 tablet 10/10/18 - Allergies Allergies/Adverse Reactions: Allergies Allergy/AdvReac Type Severity Reaction Status Date / Time adhesive tape AdvReac Rash Verified 10/09/18 15:17 - Social History Does the pt smoke?: No Smoking Status: Never smoker Does the pt drink ETOH?: Yes Does the pt have substance abuse?: No - Immunizations Immunizations are current?: Yes - POLST Patient has POLST: No POLST Status: Full Code PD ED PE NORMAL - Vitals Vital signs reviewed: Yes (normal ) - General General: No acute distress, Well developed/nourished, Other (blank stare few words with delay in execution of motor commands. ) - HEENT HEENT: Atraumatic, PERRL, EOMI, Ears normal, Pharynx benign, Other (dry mucous membranes ) - Neck Neck: Supple, no meningeal sign, No bony TTP - Cardiac Cardiac: RRR, Other (2/6 holosystolic murmer at LSB) - Respiratory Respiratory: No respiratory distress, Clear bilaterally - Abdomen Abdomen: Soft, Non tender, Other (distended but not tense with ascites. ) - Back Back: No CVA TTP, No spinal TTP - Derm Derm: Normal color, Warm and dry - Extremities Extremities: Other (There is trace edema to both LE with post inflamatory hyperpigmenation. ) - Neuro Neuro: shipping/receiving manager 2-12 intact, No motor deficit, No sensory deficit, Normal speech Eye Opening: Spontaneous Motor: Obeys Commands Verbal: Confused GCS Score: 14 - Psych Psych: Normal mood, Normal affect Results - Vitals Vitals: Vital Signs - 24 hr 10/27/18 10/27/18 10/27/18 07:48 08:50 10:07 Temperature 36.2 C L Heart Rate 72 64 64 Respiratory 18 19 18 Rate Blood Pressure 117/64 112/63 109/67 O2 Saturation 99 97 96 10/27/18 10:48 Temperature Heart Rate 62 Respiratory 16 Rate Blood Pressure 109/67 O2 Saturation 99 Oxygen O2 Source Room air - Labs Labs: Laboratory Tests 10/27/18 10/27/18 10/27/18 08:50 10:38 10:38 WBC 45.2 H* RBC 3.63 L Hgb 12.8 Hct 38.6 MCV 106.4 H MCH 35.2 H MCHC 33.1 RDW 18.0 H Plt Count 138 MPV 9.4 Neut # (Auto) Not Reportable Lymph # (Auto) Not Reportable Cowley # (Auto) Not Reportable Eos # (Auto) Not Reportable Baso # (Auto) Not Reportable Absolute Nucleated RBC Not Reportable Total Counted 100 Band Neuts % (Manual) 18 H Reactive Lymphs % (Man) 2 Abnorm Lymph % (Manual) 0 Metamyelocytes % 2 H Myelocytes % 1 H Nucleated RBC % Not Reportable Neutrophils # (Manual) 38.4 H Lymphocytes # (Manual) 1.4 L Monocytes # (Manual) 4.1 H Eosinophils # (Manual) 0.0 Basophils # (Manual) 0.0 Differential Comment MANUAL DIFFERENTIAL Manual Slide Review Indicated Platelet Morphology RARE GIANT PLATELETS RBC Morph Micro Appear 3+ ANISOCYTOSIS Sodium 130 L Potassium 5.4 H Chloride 97 L Carbon Dioxide 22 Anion Gap 11.0 BUN 44 H Creatinine 1.0 Estimated GFR (MDRD) 54 L Glucose 80 Lactic Acid Calcium 8.2 L Total Bilirubin 4.5 H AST 71 H ALT 32 Alkaline Phosphatase 164 H Ammonia 117.0 H* Troponin I Total Protein 5.5 L Albumin 2.0 L Globulin 3.5 Albumin/Globulin Ratio 0.6 L Lipase 73 H 10/27/18 10/27/18 10:38 10:38 WBC RBC Hgb Hct MCV MCH MCHC RDW Plt Count MPV Neut # (Auto) Lymph # (Auto) Cowley # (Auto) Eos # (Auto) Baso # (Auto) Absolute Nucleated RBC Total Counted Band Neuts % (Manual) Reactive Lymphs % (Man) Abnorm Lymph % (Manual) Metamyelocytes % Myelocytes % Nucleated RBC % Neutrophils # (Manual) Lymphocytes # (Manual) Monocytes # (Manual) Eosinophils # (Manual) Basophils # (Manual) Differential Comment Manual Slide Review Platelet Morphology RBC Morph Micro Appear Sodium Potassium Chloride Carbon Dioxide Anion Gap BUN Creatinine Estimated GFR (MDRD) Glucose Lactic Acid 2.4 H Calcium Total Bilirubin AST ALT Alkaline Phosphatase Ammonia Troponin I 0.07 Total Protein Albumin Globulin Albumin/Globulin Ratio Lipase Procedures - IVC sono (time) 0800 Bedside IVC sono: IVC measures (cm) (1.37), IVC collapsed c insp (cm) (1.37), High CVP PD MEDICAL DECISION MAKING - ED course Complexity details: reviewed old records, reviewed results, re-evaluated patient, considered differential, d/w patient, d/w family ED course: 73-year-old female with advanced liver disease of unspecific etiology there is nonalcoholic cirrhosis has progression of her liver disease she presents to the emergency department today with confusion and an ammonia level elevated at 117. There is a question from her about whether she is taking her lactulose or not very likely she is not and in the future he will be administering her medications. Departure - Departure Disposition: ED Place in Observation Clinical Impression: Hyperammonemia, Hepatic encephalopathy
[2018-10-27] MEDS ORDERED: SODIUM CHLORIDE 0.9% 1,000 ML IV ONE (08:11)
[2018-10-27 11:00] LABS: BASOPHILS % (AUTO) 0.2 %; EOSINOPHILS % (AUTO) 0.1 %; HGB - HEMOGLOBIN 12.8 g/dL (12.0-16.0); LYMPHOCYTES % (AUTO) 1.7 %; MEAN CORPUSCULAR HEMOGLOBIN 35.2 pg (27.0-31.0); MEAN CORPUSCULAR HGB CONC 33.1 g/dL (32.0-36.0); MEAN CORPUSCULAR VOLUME 106.4 fL (81.0-99.0); MEAN PLATELET VOLUME 9.4 fL (7.9-10.8); MONOCYTES % (AUTO) 2.2 %; NEUTROPHILS % (AUTO) 95.8 %; PLT - PLATELET COUNT 138 10^3/uL (130-450); RED BLOOD COUNT 3.63 10^6/uL (4.20-5.40)
[2018-10-27 11:05] LABS: WHITE BLOOD COUNT 45.2 x10^3/uL (4.8-10.8)
[2018-10-27 11:16] LABS: ABNORMAL LYMPHS % (MANUAL) 0 %
[2018-10-27 11:18] LABS: BAND NEUTROPHILS % (MANUAL) 18 %; LYMPHOCYTES # (MANUAL) 1.4 10^3/uL (1.5-3.5); LYMPHOCYTES % (MANUAL) 1 %; METAMYELOCYTES % (MANUAL) 2 %; MONOCYTES # (MANUAL) 4.1 10^3/uL (0.0-1.0); MYELOCYTES % (MANUAL) 1 %; NEUTROPHILS # (MANUAL) 38.4 10^3/uL (1.5-6.6); NEUTROPHILS % (MANUAL) 67 %
[2018-10-27 11:20] LABS: DIFFERENTIAL COMMENT MANUAL DIFFERENTIAL; PLATELET MORPHOLOGY RARE GIANT PLATELETS (NORMAL); RBC MORPHOLOGY (MULTIPLE) 3+ ANISOCYTOSIS (NORMAL)
[2018-10-27 11:56] LABS: ALBUMIN/GLOBULIN RATIO 0.6 (1.0-2.2); BILIRUBIN,TOTAL 4.5 mg/dL (0.2-1.0); CALCIUM 8.2 mg/dL (8.5-10.3); TOTAL PROTEIN 5.5 g/dL (6.7-8.2)
[2018-10-27] MEDS ORDERED: SODIUM CHLORIDE FLUSH 0.9% 10 ML SYRINGE IVP PRN (14:06)
[2018-10-27] MEDS ORDERED: ONDANSETRON ODT 4 MG TABLET TL PRN (14:06)
[2018-10-27] MEDS ORDERED: ONDANSETRON 4 MG/2 ML VIAL IVP PRN (14:06)
--- NOTE | 2018-10-27 14:50 | XRAY Report ---
Reason: SOB with lactic acidosis Procedure Date: 10/27/2018 Accession Number: [id number] / [id number] Procedure: XR - Chest 1 View X-Ray CPT Code: 38864 FULL RESULT: EXAM: CHEST RADIOGRAPHY EXAM DATE: 10/27/2018 02:27 PM. CLINICAL HISTORY: SOB with lactic acidosis. COMPARISON: CHEST 2 VIEW 10/08/2018 2:46 PM. TECHNIQUE: 1 view. FINDINGS: Lungs/Pleura: Scarring is seen at the right base, with atelectasis at the left base. No gross consolidation seen. Mediastinum: Within exam limitations, the cardiomediastinal contour is normal. Other: None. IMPRESSION: Scarring noted at the right base with atelectasis seen at the left base. No consolidation noted. RADIA
[2018-10-27 15:14] LABS: INR 3.2 (0.8-1.2); PT - PROTHROMBIN TIME 35.6 secs (9.9-12.6)
[2018-10-27 15:22] LABS: PARTIAL THROMBOPLASTIN TIME 44.5 secs (24.9-33.3)
--- NOTE | 2018-10-27 15:30 | HISTORY & PHYSICAL EXAMINATION ---
Chief Complaint - Chief Complaint Chief Complaint: Presents with confusion History of Present Illness - Admitted From Admitted From:: ED - History Obtained From Records Reviewed: Yes History obtained from: Patient and Exam Limitations: none - History of Present Illness HPI Comment/Other: 73-year-old female with a history of nonalcoholic cirrhosis, Hyperbilirubinemia,JAK2 positive myeloproliferative neoplasm with leukocytosis, mild myelofibrosis, history of a right leg DVT and factor V Leiden, For which she takes lifelong warfarin, and asthma, has developed acute confusion this morning consistent with what she is had previously with an elevated ammonia level. Medics report that the reported the patient to be in her normal state of health yesterday evening and this morning clearly confused. The p atient gives very little history has mostly a blank stare and answers questions appropriately with a smile. She denies any specific illness and indicates that she has been taking her lactulose. Patient states a reticulocyte micropapular rash for about 4 days to the bilateral lower extremity with associated edema. She has had a recent hospital admission for hepatic encephalopathy in September of this year several weeks ago with an ammonia level up to 87.7. She was increased On her Lasix Spironolactone and lactulose and Xifaxan was added. Patient states that she sees Dr. Castro who is her primary gastrologist at [facility] and Dr. Aponte who is her primary oncologist. Patient was previously seen by primary oncologist on 09/04/18 for which she was followed up for her right leg DVT for which she was placed back on Lovenox and had a INR that was therapeutic. Patient had developed worsening hyperbilirubinemia and at that time WBC count was 55.3 with hemoglobin 11.6 and a platelet of 196 INR was approximately 2.2. Patient was scheduled to have a paracenteses on 09/10/18 at [place] unclear if she had that done due to her being more more jaundiced.Primary oncologist believes that her leukocytosis is worse and it might be reactive. On this presentation patient had a lactic acid of 2.4, T bilirubin of 4.5, sodium 130, potassium 5.4, BUN of 14, creatinine of 1.0, WBC of 45.2, With a hemoglobin of 12.8 hematocrit 38.6 and a platelet 138. Patient did not have an INR or PT as a phlebotomy was unable to draw. Patient will be admitted for hepatic encephalopathy, nonalcoholic cirrhosis with worsening hyperbilirubinemia, bilateral maculopapular pruritic rash, and exacerbation of her JAK2 Positive myeloproliferative neoplasm with leukocytosis and myelofibrosis. 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 Her and her have been for almost 50 years. 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 She currently has a [employer] business with her daughter called [employer]. She has 2 children. She does drink wine occasionally but denies ever having smoked cigarettes and denies any illicit drug use per - POLST Patient has POLST: No POLST Status: Full Code Meds/Allgy - Home Medications Home Medications: Ambulatory Orders Medication Instructions Recorded Confirmed Warfarin [Coumadin] 2.5 mg PO DAILY 03/14/17 10/08/18 Omeprazole 20 mg PO DAILY #30 tablet. 03/29/18 10/27/18 Furosemide [Lasix] 40 mg PO BID 06/05/18 10/27/18 Multivitamin [Multiple Vitamins] 1 tab PO DAILY 10/08/18 10/27/18 Sertraline [Zoloft] 25 mg PO DAILY 10/08/18 10/27/18 Lactulose 15 gm PO TID #1350 bottle 10/10/18 10/27/18 Nadolol 10 mg PO DAILY #30 tablet 10/10/18 Spironolactone [Aldactone] 100 mg PO BID #60 tablet 10/10/18 10/27/18 rifAXIMin [Xifaxan] 550 mg PO BID #60 tablet 10/10/18 10/27/18 - Allergies Allergies/Adverse Reactions: Allergies Allergy/AdvReac Type Severity Reaction Status Date / Time adhesive tape AdvReac Rash Verified 10/09/18 15:17 Review of Systems - All Other Systems All Other Systems: reports: Reviewed and negative Prior Level of Functionality: Patient with unknown independent home ADLs. Exam - Vital Signs Reviewed Vital Signs: Yes Vital Signs: Vital Signs x48h Temp Pulse Resp BP Pulse Ox 10/27/18 13:31 70 22 115/59 L 99 10/27/18 10:48 62 16 109/67 99 10/27/18 10:07 64 18 109/67 96 10/27/18 08:50 64 19 112/63 97 10/27/18 07:48 36.2 C L 72 18 117/64 99 - Physical Exam General Appearance: positive: No acute distress, Alert, Other (Pleasant but chronically ill-appearing) Eyes Bilateral: positive: Normal inspection, PERRL, EOMI, Other (Scleral icterus present) ENT: positive: ENT inspection nml, Pharynx nml, Dry mucous membranes Neck: positive: Nml inspection, Thyroid nml, No JVD, Trachea midline. negative: Thyromegaly Respiratory: positive: Chest non-tender, No respiratory distress, Breath sounds nml Cardiovascular: positive: Regular rate & rhythm, No murmur, No gallop Peripheral Pulses: positive: 2+ Abdomen: positive: Non-tender, No organomegaly, Nml bowel sounds, Other (Ascites present, Anasarca) Skin: positive: Warm, Other (Macro papular rash bilateral lower extremity right more than left with pinpoint lesions to dorsum of foot) Extremities: positive: Non-tender, Full ROM, Nml appearance Neurologic/Psychiatric: positive: Oriented x3, CN's nml (2-12), Depressed mood/affect Sepsis Event Note (H) - Evaluation Possible source of Sepsis: positive: Other (Patient meets SIRS criteria due to the fact that no source of infection present) - Sepsis Criteria Sepsis Criteria: WBC count greater than 10% bands, TRANSFER AND PUMPHOUSE OPERATOR: altered consciousness (unrelated to primary neuro pathology), Hepatic: Bilirubin greater than 2mg/dl Conclusion/Plan - Problem List (1) SIRS (systemic inflammatory response syndrome) Conclusion/Plan: Patient with a WBC of 45.2 however back in September 04 patient was with a WBC of 55.3. Patient clearly has exacerbations which in [employer] do show a steady rise. Unclear if Her DILCIA 2+ myeloproliferative neoplasm with leukocytosis is reactive or with underlying unclear cause. Patient does see Dr. Aponte and is scheduled to follow-up sometime in October.Would continue to follow trending. Patient is hypercoagulable and likely would cause further hematological complications as patient has factor V Leiden mutation and currently on Coumadin for her existing right DVT. Chest x-ray shows scarring of the right base likely due to pneumonia as she has a history of this along with atelectasis to the left base. UA with micro will be obtained as well as 2 sets of blood cultures currently no source of infection. Lactic acid is elevated at 2.4 with a elevated T bilirubin of 4.5 however encephalopathy is attributable to hepatic source and not to infectious source at this point. Total critical time 30 minutes (2) Hepatic encephalopathy Conclusion/Plan: Ammonia level on presentation was 117 and patient unclear if this is due to noncompliance. Will place on lactulose 30 g p.o. 3 times daily and would continue with serial ammonia levels. Patient does have anasarca with ascites and was scheduled for paracentesis 09/10/18. Likely will need to see if patient has malignancy and/or could benefit from diagnostic and therapeutic paracentesis, However due to factor V Leiden mutation coagulopathy and if INR is elevated this could be a challenge. (3) Ascites Conclusion/Plan: Patient was scheduled for a paracenteses 09/10/18 at [place] unclear if this was done. Clearly patient has anasarca and ascitic fluid on abdominal exam. We yamilet l continue to monitor and place back on Aldactone and Lasix along with possible fluid restriction as she is will be on IV fluids at this point. ABD us shows no hepatic vein thrombosis with a hx of hepatic vein thrombosis. Qualifiers: Ascites type: other type Qualified Code(s): R18.8 - Other ascites (4) Factor V Leiden mutation Conclusion/Plan: Patient with coagulopathy and factor V Leiden mutation and will need lifelong Coumadin which will be continued as patient has coexisting right lower extremity DVT per (5) History of DVT (deep vein thrombosis) Conclusion/Plan: We will continue with Coumadin and with daily PT INR to therapeutic goal of an INR of 2-3. (6) Leukocytosis Conclusion/Plan: This is in conjunction with patient's a trending AK 2+ myeloproliferative neoplasm we will continue with as exacerbation likely reactive as a result the patient's encephalopathy however underlying malignancy cannot be ruled out. Qualifiers: Leukocytosis type: bandemia Qualified Code(s): D72.825 - Bandemia (7) Myeloproliferative neoplasm Conclusion/Plan: Patient with history of JA K2 positive mild peripheral neoplasm with leukocytosis was last seen by Dr. Aponte on 09/04/18 and her leukocytosis is worse and might be reactive to be followed later on this month. May be having coexisting hematological comorbidities as a result. (8) Non-alcoholic cirrhosis Conclusion/Plan: Would continue to follow clinical status and place back on home medications of Lasix Aldactone as well as nadolol. Ascites and anasarca seen clinically. Paracenteses likely needed. Patient with high and a MELD score of 25 points with last known INR of 2.2 this is equivalent to 19.6% estimated 3-month mortality. (9) Hyperbilirubinemia Conclusion/Plan: Patient will be on D5 one half normal saline and essentially will receive at 75 mL's due to patient's anasarca. Hopefully will washout hyperbilirubinemia. Of concern that if this is worsening hyperbilirubinemia in the setting of nonalcoholic cirrhosis would be interested in obtaining abdominal ultrasound wi th color-flow Doppler to rule out hepatic vein thrombosis in the setting of coagulopathy with factor V Leiden mutation. Abdominal US shows no hepatic vein thrombosis. Patient is on Coumadin however phlebotomy was not able to draw INR today. In addition patient has pruritus and is jaundiced and will provide supportive care. (10) Maculopapular rash Conclusion/Plan: With associated pruritus, We will place on Vistaril along with IV fluids and hydrocortisone 1% 3 times daily to bilateral lower extremity macular papular rash with pinpoint lesions. (11) Atelectasis of left lung Conclusion/Plan: Incentive yogesh, supplemental oxygen, nebs prn. (12) Advanced care planning/counseling discussion Conclusion/Plan: Goals of care, along with disease mgmt, trajectory of illness as well as prognosis of conditions were discussed with patient. - Lab Results Fish Bones: 10/27/18 10:38 10/27/18 14:47 - Diagnostic Imaging Results Diagnostic Imaging Results: positive: Final report reviewed (Chest x-ray shows scarring of the right base with atelectasis to the left base) - EKG Results EKG Interpreted Independently: No Core Measures - Anticipated LOS I expect patient to be DC'd or transferred within 96 hours.: Yes - Issues Hospital Issues and Management Plan: Medical management with mainly lactulose, IV fluids, supportive care, diagnostic and labs to follow - DVT/VTE - Prophylaxis VTE/DVT Device ordered at admit?: Yes VTE/DVT Prophylaxis med ordered at admit?: No Not Ordered - Medical Reason: Not indicated (Patient already on Coumadin for factor V Leiden mutation lifelong Coumadin needed) - Stroke - Rehab Assessment Rehab services assessment to be ordered?: No Not Ordered - Medical Reason: Not indicated - AMI - Statin at Admit Aspirin Prescribed on Admit: No Not Ordered - Medical Reason: Not indicated
[2018-10-27 16:02] LABS: ALBUMIN 2.3 g/dL (3.2-5.5); ALBUMIN/GLOBULIN RATIO 0.5 (1.0-2.2); BILIRUBIN,TOTAL 4.7 mg/dL (0.2-1.0); CALCIUM 8.3 mg/dL (8.5-10.3); CREATININE 1.1 mg/dL (0.4-1.0); TOTAL PROTEIN 6.6 g/dL (6.7-8.2)
--- NOTE | 2018-10-27 16:58 | Ultrasound Report ---
Reason: Worsening hyperbilirubinemia Procedure Date: 10/27/2018 Accession Number: [id number] / [id number] Procedure: US - Abdomen Limited CPT Code: FULL RESULT: EXAM: ABDOMEN ULTRASOUND LIMITED, RUQ EXAM DATE: 10/27/2018 04:38 PM. CLINICAL HISTORY: Worsening hyperbilirubinemia. COMPARISON: ABDOMEN LIMITED 12/05/2016 8:02 PM. TECHNIQUE: Real-time scanning was performed with static images obtained. FINDINGS: Liver: There is surface nodularity and heterogeneous echotexture to suggest cirrhosis. Hepatic span is 13.3 cm. Main portal vein flow: Hepatopetal. Moderate ascites present. Gallbladder: There is gallbladder wall thickening measuring 3.5 mm. Multiple small stones are seen. Biliary System: CBD measures 6 mm. No intrahepatic or extrahepatic ductal dilatation. Other: Right kidney spans 10.1 cm without evidence of hydronephrosis. IMPRESSION: Stable findings of cirrhosis, with cholelithiasis present and prominent gallbladder wall thickening. RADIA
[2018-10-27 17:00] LABS: GLUCOSE, URINE (UA) NEGATIVE (NEGATIVE); KETONES,URINE (UA) TRACE mg/dL (NEGATIVE); LEUKOCYTE ESTERASE, URINE SMALL (NEGATIVE); NITRITE,URINE NEGATIVE (NEGATIVE); OCCULT BLOOD,URINE NEGATIVE (NEGATIVE); PROTEIN,URINE NEGATIVE (NEGATIVE); UROBILINOGEN,URINE 4 E.U./dL (NORMAL)
[2018-10-27 17:06] LABS: BILIRUBIN,URINE SMALL (NEGATIVE); CLARITY,URINE HAZY (CLEAR); ICTOTEST,URINE POSITIVE
[2018-10-27 17:24] LABS: BACTERIA,URINE Many /HPF (None Seen); RBC,URINE 0-5 /HPF (0-5); SQUAMOUS EPITHELIAL CELL,UR MANY Squamous (<= Few)
[2018-10-27] MEDS: DEXTROSE 5%-0.45% NACL 1,000 ML IV SCH (17:43)
[2018-10-27] MEDS: HYDROCORTISONE 1% CREAM 28 GM TUBE TOP SCH ×2 (17:44→22:42)
[2018-10-27] MEDS: SODIUM CHLORIDE FLUSH 0.9% 10 ML SYRINGE IVP SCH (17:44)
[2018-10-27] MEDS: hydrOXYzine PAMOATE 25 MG CAPSULE PO PRN (17:48)
[2018-10-27] MEDS: rifAXIMin 550 MG TABLET PO SCH ×2 (17:48→20:58)
[2018-10-27] MEDS: LACTULOSE 10 GM/15 ML BOTTLE PO SCH ×2 (17:56→22:41)
[2018-10-27] MEDS: FAMOTIDINE 20 MG/2 ML VIAL IVP SCH (20:58)
[2018-10-27] MEDS: SPIRONOLACTONE 25 MG TABLET PO SCH (20:58)
[2018-10-28] MEDS: LACTULOSE 10 GM /15 ML UDC PO SCH ×2 (01:07→06:40)
[2018-10-28] MEDS: SODIUM CHLORIDE FLUSH 0.9% 10 ML SYRINGE IVP SCH ×3 (04:40→19:42)
[2018-10-28] MEDS: FUROSEMIDE 20 MG TABLET PO SCH ×2 (05:40→14:06)
[2018-10-28] MEDS: HYDROCORTISONE 1% CREAM 28 GM TUBE TOP SCH ×3 (05:41→21:26)
[2018-10-28 06:13] LABS: BASOPHILS % (AUTO) 0.4 %; EOSINOPHILS % (AUTO) 0.9 %; HGB - HEMOGLOBIN 11.8 g/dL (12.0-16.0); LYMPHOCYTES % (AUTO) 2.5 %; MEAN CORPUSCULAR HGB CONC 32.6 g/dL (32.0-36.0); MEAN CORPUSCULAR VOLUME 107.5 fL (81.0-99.0); MEAN PLATELET VOLUME 8.6 fL (7.9-10.8); MONOCYTES % (AUTO) 1.1 %; NEUTROPHILS % (AUTO) 95.1 %; PLT - PLATELET COUNT 117 10^3/uL (130-450); RED BLOOD COUNT 3.37 10^6/uL (4.20-5.40); RED CELL DISTRIBUTION WIDTH 18.7 % (12.0-15.0)
[2018-10-28 06:18] LABS: INR 3.3 (0.8-1.2); PT - PROTHROMBIN TIME 36.5 secs (9.9-12.6)
[2018-10-28 06:20] LABS: ABNORMAL LYMPHS % (MANUAL) 0 %
[2018-10-28 06:24] LABS: ALBUMIN 1.9 g/dL (3.2-5.5); ALBUMIN/GLOBULIN RATIO 0.5 (1.0-2.2); BILIRUBIN,TOTAL 4.5 mg/dL (0.2-1.0); CALCIUM 8.2 mg/dL (8.5-10.3); CREATININE 1.1 mg/dL (0.4-1.0); TOTAL PROTEIN 5.5 g/dL (6.7-8.2)
[2018-10-28] MEDS: PANTOPRAZOLE 40 MG TABLET PO SCH (06:41)
[2018-10-28] MEDS: DEXTROSE 5%-0.45% NACL 1,000 ML IV SCH ×4 (08:02→20:51)
[2018-10-28] MEDS ORDERED: DEXTROSE 5%-0.45% NACL 1,000 ML IV SCH (08:06)
[2018-10-28] MEDS ORDERED: MIDODRINE 2.5 MG TABLET PO PRN (08:11)
[2018-10-28 08:13] LABS: BAND NEUTROPHILS % (MANUAL) 29 %; LYMPHOCYTES # (MANUAL) 1.2 10^3/uL (1.5-3.5); LYMPHOCYTES % (MANUAL) 3 %; MONOCYTES # (MANUAL) 0.4 10^3/uL (0.0-1.0); NEUTROPHILS # (MANUAL) 39.4 10^3/uL (1.5-6.6); NEUTROPHILS % (MANUAL) 67 %
[2018-10-28 08:17] LABS: PLATELET ESTIMATE, MANUAL DECREASED (<130,000) (NORMAL); PLATELET MORPHOLOGY NORMAL APPEARANCE (NORMAL)
[2018-10-28 08:18] LABS: DIFFERENTIAL COMMENT MANUAL DIFFERENTIAL
[2018-10-28] MEDS: SPIRONOLACTONE 25 MG TABLET PO SCH ×2 (08:50→21:25)
[2018-10-28] MEDS: SERTRALINE 25 MG TABLET PO SCH (08:51)
[2018-10-28] MEDS: rifAXIMin 550 MG TABLET PO SCH ×2 (08:51→21:25)
[2018-10-28] MEDS: MULTIVITAMIN TABLET PO SCH (08:52)
[2018-10-28] MEDS: NADOLOL 20 MG TABLET PO SCH (08:54)
[2018-10-28] MEDS: FAMOTIDINE 20 MG/2 ML VIAL IVP SCH (08:58)
[2018-10-28] MEDS: hydrOXYzine PAMOATE 25 MG CAPSULE PO PRN ×2 (12:24→22:35)
[2018-10-28] MEDS: LACTULOSE 10 GM/15 ML BOTTLE PO SCH ×2 (14:07→21:26)
[2018-10-28] MEDS: WARFARIN 2.5 MG TABLET PO SCH (14:15)
--- NOTE | 2018-10-28 18:17 | MISCELLANEOUS PROVIDER NOTE ---
Miscellaneous Provider Note - - Note: Subjective: Patient seen at bedside with improvement to mental status. Patient was able to eat breakfast. No fevers no chills no chest pain. Increased abdominal girth noted. Objective: Vital signs are hemodynamic with stable. Afebrile, heart rate of 71, blood pressure 111/56, RR 20, 94% O2 saturation on room air, General: Patient is chronically ill-appearing in no acute respiratory distress speaking in full sentences conscious alert and oriented x3. Neck: No JVD no bruits no lymphadenopathy, no thyromegaly, no masses or bruits. Next CV/lungs: RRR. No murmurs gallops clicks or rubs. CTA BL. Abdomen: Ascites with some fluid wave shifting. Non-tense positive bowel sounds all quadrants no HSM no rebound tenderness. Next Extremities and skin 1+ pitting edema. Bilateral macular papular rash with jaundice noted. Neuro: Grossly intact next Labs: Reviewed. Ammonia 134 Imaging studies reviewed next Assessment and plan: - Problem List (1) SIRS (systemic inflammatory response syndrome); Lactic acidosis Conclusion/Plan: Patient with WBC now of 41. Patient has a history of JAK2+ Myeloproliferative disease, neoplasm with leukocytosis that is reactive or with underlying unclear cause. No source of infection at this point however lactic acidosis is present with a current level 2.4. Blood cultures x2 are negative growth to date. Patient's UA shows 11-25 WBCs positive leukocyte esterase negative nitrite many squamous cells and is currently asymptomatic with pelvic pain. Abdominal ultrasound does not show cholelithiasis or hepatic vein thrombosis that would contribute to leukocytosis. Continue to monitor. (2) Hepatic encephalopathy Conclusion/Plan: Lactulose will be titrated upward to 45 g p.o. 3 times daily now due to ammonia level being at 134 now. Patient did indeed have a paracenteses on 09/04, For which several liters were removed. Currently with ascites but does not appear to be infected or spontaneous bacterial peritonitis there is no evidence of any underlying infection at this point (3) Ascites Conclusion/Plan: (4) Factor V Leiden mutation Conclusion/Plan: Patient with coagulopathy and factor V Leiden mutation and will need lifelong Coumadin which will be continued as patient has coexisting right lower extremity DVT. Currently patient is coagulopathic with 3.3 also adding with patient's liver disease makes her auto coagulopathic at this time. We will hold Coumadin for now. (5) History of DVT (deep vein thrombosis) Conclusion/Plan: We will continue with Coumadin and with daily PT INR to therapeutic goal of an INR of 2-3. (6) Leukocytosis Conclusion/Plan: This is in conjunction with patient's a trending DILCIA 2+ myeloproliferative neoplasm we will continue with as exacerbation likely reactive as a result the patient's encephalopathy however underlying malignancy cannot be ruled out. Qualifiers: Leukocytosis type: bandemia Qualified Code(s): D72.825 - Bandemia (7) Myeloproliferative neoplasm Conclusion/Plan: Patient with history of JA K2 positive mild peripheral neoplasm with leukocytosis was last seen by Dr. Aponte on 09/04/18 and her leukocytosis is worse and might be reactive to be followed later on this month. May be having coexisting hematological comorbidities as a result. (8) Non-alcoholic cirrhosis Conclusion/Plan: Would continue to follow clinical status and place back on home medications of Lasix Aldactone as well as nadolol. Ascites and anasarca seen clinically. Paracenteses likely needed. Patient with high and a MELD score of 25 points with A current INR of 3.3 this is equivalent to 19.6% estimated 3-month mortality. (9) Hyperbilirubinemia Conclusion/Plan: Patient will be on D5 one half normal saline To address both hyperbilirubinemia as well as mild renal insufficiency. Hopefully will washout hyperbilirubinemia. Of concern that if this is worsening hyperbilirubinemia in the setting of nonalcoholic cirrhosis would be interested in obtaining abdominal ultrasound with color-flow Doppler to rule out hepatic vein thrombosis in the setting of coagulopathy with factor V Leiden mutation. Abdominal US shows no hepatic vein thrombosis. Patient is on Coumadin however phlebotomy was not able to draw INR today. In addition patient has pruritus and is jaundiced and will provide supportive care. (10) Maculopapular rash Conclusion/Plan: With associated pruritus, We will place on Vistaril along with IV fluids and hydrocortisone 1% 3 times daily to bilateral lower extremity macular papular rash with pinpoint lesions. CODE STATUS: Full code
[2018-10-29] MEDS: DEXTROSE 5%-0.45% NACL 1,000 ML IV SCH ×2 (01:45→09:51)
[2018-10-29] MEDS: SODIUM CHLORIDE FLUSH 0.9% 10 ML SYRINGE IVP SCH ×2 (01:45→09:50)
[2018-10-29 04:46] LABS: BASOPHILS # (AUTO) 0.2 10^3/uL (0.0-0.1); BASOPHILS % (AUTO) 0.6 %; EOSINOPHILS # (AUTO) 0.3 10^3/uL (0.0-0.7); EOSINOPHILS % (AUTO) 0.8 %; LYMPHOCYTES # (AUTO) 0.9 10^3/uL (1.5-3.5); LYMPHOCYTES % (AUTO) 2.5 %; MEAN CORPUSCULAR HEMOGLOBIN 35.3 pg (27.0-31.0); MEAN CORPUSCULAR HGB CONC 32.6 g/dL (32.0-36.0); MEAN CORPUSCULAR VOLUME 108.3 fL (81.0-99.0); MEAN PLATELET VOLUME 8.6 fL (7.9-10.8); MONOCYTES # (AUTO) 0.8 10^3/uL (0.0-1.0); NEUTROPHILS # (AUTO) 35.8 10^3/uL (1.5-6.6); NEUTROPHILS % (AUTO) 94.1 %; PLT - PLATELET COUNT 99 10^3/uL (130-450); RED BLOOD COUNT 3.68 10^6/uL (4.20-5.40)
[2018-10-29 04:57] LABS: ALBUMIN/GLOBULIN RATIO 0.5 (1.0-2.2); BILIRUBIN,TOTAL 4.5 mg/dL (0.2-1.0); CALCIUM 8.4 mg/dL (8.5-10.3); CREATININE 1.1 mg/dL (0.4-1.0); TOTAL PROTEIN 5.9 g/dL (6.7-8.2)
[2018-10-29 05:24] LABS: PLATELET ESTIMATE, MANUAL DECREASED (<130,000) (NORMAL); PLATELET MORPHOLOGY NORMAL APPEARANCE (NORMAL)
[2018-10-29] MEDS: FUROSEMIDE 20 MG TABLET PO SCH ×2 (06:35→13:18)
[2018-10-29] MEDS: PANTOPRAZOLE 40 MG TABLET PO SCH (06:35)
[2018-10-29] MEDS: HYDROCORTISONE 1% CREAM 28 GM TUBE TOP SCH ×2 (06:36→13:25)
[2018-10-29] MEDS: LACTULOSE 10 GM/15 ML BOTTLE PO SCH ×2 (06:36→13:18)
[2018-10-29 07:57] LABS: INR 3.5 (0.8-1.2); PT - PROTHROMBIN TIME 38.9 secs (9.9-12.6)
[2018-10-29] MEDS: MULTIVITAMIN TABLET PO SCH (09:47)
[2018-10-29] MEDS: SERTRALINE 25 MG TABLET PO SCH (09:47)
[2018-10-29] MEDS: SPIRONOLACTONE 25 MG TABLET PO SCH (09:50)
[2018-10-29] MEDS: WARFARIN 2.5 MG TABLET PO SCH (09:51)
[2018-10-29] MEDS: rifAXIMin 550 MG TABLET PO SCH (10:11)
--- NOTE | 2018-10-29 11:00 | Discharge Plan ---
Discharge Plan Disposition: 01 Home, Self Care Condition: Good Prescriptions: hydrOXYzine PAMOATE [Vistaril] 25 mg PO Q6HR PRN #40 capsule PRN Reason: pruritus Lactulose 45 gm PO TID #1 bottle Diet: Low Sodium Activity Restrictions: Activity as Tolerated Shower Restrictions: No Driving Restrictions: Yes Weight Bearing: Full Weight Instruction Topics: Cirrhosis, Shunt Transjugular Hepatic Portal, Ammonia, Coumadin, Paracentesis Additional Instructions or Follow Up instructions: Patient has been instructed on daily weights strict I's and O's and continuation of current medical management with Lasix, Aldactone, and medication adherence with lactulose. Patient's lymphocytosis and a prior history of JA K2+ Myelop roliferative neoplasm with leukocytosis and myelofibrosis to be followed up with her primary oncologist along with her primary fish egg packer to follow-up for worsening jaundice. Patient has been instructed on monitoring of her maculopapular rash which she will receive Vistaril for symptomatic treatment. Patient was also instructed to hold off on Coumadon For at least for 4-5 days and have a recheck with her PCP this Monday. Patient was explained that her liver disease makes her other AUTO anticoagulate along with the effects of Coumadin producing a coagulopathy and supra-therapeutic INR noted. Patient also instructed to follow-up with primary fish egg packer on evaluating For worsening hyperbilirubinemia in the setting of patient's DILCIA 2+ myeloproliferative neoplasm with leukocytosis. Will need to follow-up with primary oncologist as well. Would consider a paracentesis as an outpatient to evaluate for cytology with malignancy along with ruling out any underlying infection. No Smoking: If you smoke, Please STOP! Call for help. Follow-up with: Josy Cooley MD [Primary Care Provider] - 11/02/18 9:00 am (Follow-up with PCP this Monday for INR check, Post hospital discharge follow-up)
--- NOTE | 2018-10-29 11:16 | DISCHARGE SUMMARY ---
"Discharge Summary Admit Date: 10/27/18 Discharge Date: 10/29/18 Discharging Provider: Dr. Goldberg Primary Care Provider: Josy Cooley Code Status: Attempt Resuscitation Condition at Discharge: Good Discharge Disposition: 01 Home, Self Care - DIAGNOSES Admission Diagnoses: (1) SIRS (systemic inflammatory response syndrome) (2) Hepatic encephalopathy (3) Ascites (4) Factor V Leiden mutation (5) History of DVT (deep vein thrombosis) (6) Leukocytosis (7) Myeloproliferative neoplasm (8) Non-alcoholic cirrhosis (9) Hyperbilirubinemia (10) Maculopapular rash (11) Atelectasis of left lung (12) Advanced care planning/counseling discussion Discharge Diagnoses with Status of Each Condition: (1) SIRS (systemic inflammatory response syndrome); Lactic acidosis; Improved (2) Hepatic encephalopathy; Resolving (3) Ascites/Anasarca; Chronic stable (4) Factor V Leiden mutation; On Coumadin with supratherapeutic INR, stable (5) History of DVT (deep vein thrombosis); Anticoagulate with Coumadin, stable (6) J AK 2+ Myeloproliferative neoplasm with Leukocytosis; Chronic stable (7) Hyperbilirubinemia With associated jaundice; Progressive stable (8) Thrombocytopenia; Secondary to liver disease and Coumadin (9) Non-alcoholic cirrhosis; Progressive stable (10) Maculopapular rash; Symptomatic stable - HPI History of Present Illness: 73-year-old female with a history of nonalcoholic cirrhosis, Hyperbilirubinemia,JAK2 positive myeloproliferative neoplasm with leukocytosis, mild myelofibrosis, history of a right leg DVT and factor V Leiden, For which she takes lifelong warfarin, and asthma, has developed acute confusion this morning consistent with what she is had previously with an elevated ammonia level. Medics report that the reported the patient to be in her normal state of health yesterday evening and this morning clearly confused. The patient gives very little history has mostly a blank stare and answers questions appropriately with a smile. She denies any specific illness and indicates that she has been taking her lactulose. Patient states a reticulocyte micropapular rash for about 4 days to the bilateral lower extremity with associated edema. She has had a recent hospital admission for hepatic encephalopathy in September of this year several weeks ago with an ammonia level up to 87.7. She was increased On her Lasix Spironolactone and lactulose and Xifaxan was added. Patient states that she sees Dr. Castro who is her primary gastrologist at [facility] and Dr. Aponte who is her primary oncologist. Patient was previously seen by primary oncologist on 09/04/18 for which she was followed up for her right leg DVT for which she was placed back on Lovenox and had a INR that was therapeutic. Patient had developed worsening hyperbilirubinemia and at that time WBC count was 55.3 with hemoglobin 11.6 and a platelet of 196 INR was approximately 2.2. Patient was scheduled to have a paracenteses on 09/10/18 at [facility] if she had that done due to her being more more jaundiced.Primary oncologist believes that her leukocytosis is worse and it might be reactive. On this presentation patient had a lactic acid of 2.4, T bilirubin of 4.5, sodium 130, potassium 5.4, BUN of 14, creatinine of 1.0, WBC of 45.2, With a hemoglobin of 12.8 hematocrit 38.6 and a platelet 138. Patient did not have an INR or PT as a phlebotomy was unable to draw. Patient will be admitted for hepatic encephalopathy, nonalcoholic cirrhosis with worsening hyperbilirubinemia, bilateral maculopapular pruritic rash, and exacerbation of her JAK2 Positive myeloproliferative neoplasm with leukocytosis and myelofibrosis. - CONSULTS | PROCEDURES Procedures: Limited abdominal ultrasound with Doppler flow did not show an acute hepatic vein thrombosis or abnormalities within the liver, Other than existing cirrhosis And evidence of ascites. - HOSPITAL COURSE Hospital Course: Ms. Renee salinas is a 73-year-old female that essentially was admitted for hepatic encephalopathy with a Raffi of noncompliance. Patient with history of JA K2 positive mild peripheral neoplasm with leukocytosis was last seen by Dr. Aponte on 09/04/18 and her leukocytosis is worse and might be reactive to be followed later on this month. Patient with high and a MELD score of 25 points with A current INR of 3.3 this is equivalent to 19.6% estimated 3-month mortality. May be having coexisting hematological comorbidities as a result. Was initially placed on lactulose at 30 g p.o. 3 times daily and subsequently had a repeat ammonia to be peaking at 134. Lactulose was titrated to 45 g p.o. 3 times daily. Patient has hyperbilirubinemia that has been seen as an outpatient and through review of medical records with primary oncologist Dr. Aponte at every clinic there was a concern for worsening of jaundice and hyperbilirubinemia. Patient had a paracentesis prior on 09/04/18 and was being treated for a right leg DVT with titration of her Coumadin which she is currently on. Patient had supratherapeutic INR Throughout hospitalization were INR peaked at 3.5, Coumadin has been held since. Patient did have platelets that decreased to 90 9K prior to discharge, initial WBC was markedly elevated At 45.2 with exacerbation of her existing DILCIA 2+ myeloproliferative neoplasm with leukocytosis and mild mye lofibrosis. Patient also had 29% bands. Creatinine was mildly elevated at 1.1 however query on underlying chronic kidney disease., IV hydration provided, was restarted on diuretics, anasarca and ascites were managed conservatively with no need for paracenteses. Patient did not have any abdominal pain or fevers to warrant antibiotics or diagnostic therapeutic paracentesis. Patient Had an abdominal ultrasound with Doppler flow which did not show hepatic vein thrombosis; of note patient has a history of hepatic vein thrombosis. Patient had good diureses and urinary output throughout hospitalization. Patient with coagulopathy and factor V Leiden mutation and will need lifelong Coumadin which Was held due to supratherapeutic levels at a 3.5, Likely secondary to liver disease and auto coagulation. Patient did not have a source of infection and did meet SIRS criteria, lactic acidosis as it pertained to patient's liver disease with blood cultures negative growth to date. UA did not reveal pyuria or any infectious causes. Maculopapular rash with associated pruritus to the lower extremities was likely attributable to to hyperbilirubinemia with again no infectious causes and no evidence of cellulitis in which IV antibiotics or oral oral antibiotics was deferred. Patient was placed on hydrocortisone 1% to the cream with minimal relief. Vistaril was added to buttress pruritus symptoms. Patient was managed conservatively and with medical management. Again no evidence of infection despite height 29% bandemia. Patient to be discharged and followed up in about 4-5 days for an INR recheck due to coagulopathy secondary to liver disease and Coumadin. PCP to follow-up On 11/03/18 at 9:00 in a.m. Patient instructed on medication adherence to continue with her rifaximin Aldactone Lasix nadolol and lactulose and low-dose with the exception of Coumadin. I discused with the patient and the importance of continued medical mgmt with lactulose as it pertains to her recurrent hepatic encephalopathy and the consumption of lean meats, poultry, fish and legumes as well as plant based proteins to increase caloric needs at the same time preventing her from becoming malnourished. In addition, patient likely would require a TIPS procedure which would help with patients hyper bilrubinemia, jaundice, portal gastropathy with confirmed esophagel varices, as well as ascites as she would likely require another paracentesis as an outpatient. - ALLERGIES Allergies/Adverse Reactions: Allergies Allergy/AdvReac Type Severity Reaction Status Date / Time adhesive tape AdvReac Rash Verified 10/09/18 15:17 - MEDICATIONS Home Medications: Ambulatory Orders Medication Instructions Recorded Confirmed Warfarin [Coumadin] 2.5 mg PO DAILY 03/14/17 10/28/18 Omeprazole 20 mg PO DAILY #30 tablet. 03/29/18 10/27/18 Furosemide [Lasix] 40 mg PO BID 06/05/18 10/27/18 Multivitamin [Multiple Vitamins] 1 tab PO DAILY 10/08/18 10/27/18 Sertraline [Zoloft] 25 mg PO DAILY 10/08/18 10/27/18 Nadolol 10 mg PO DAILY #30 tablet 10/10/18 10/28/18 Spironolactone [Aldactone] 100 mg PO BID #60 tablet 10/10/18 10/27/18 rifAXIMin [Xifaxan] 550 mg PO BID #60 tablet 10/10/18 10/27/18 Lactulose 45 gm PO TID #1 bottle 10/29/18 hydrOXYzine PAMOATE [Vistaril] 25 mg PO Q6HR PRN #40 capsule 10/29/18 - PHYSICAL EXAM AT DISCHARGE General Appearance: positive: No acute distress, Alert, Other (Chronically ill- appearing) Eyes Bilateral: positive: PERRL, EOMI, Other (Scleral icterus noted) ENT: positive: ENT inspection nml, Pharynx nml, No signs of dehydration Neck: positive: Nml inspection, Thyroid nml, No JVD, Trachea midline. negative: Thyromegaly Respiratory: positive: Chest non-tender, No respiratory distress, Breath sounds nml Cardiovascular: positive: Regular rate & rhythm, No murmur, No gallop. negative: JVD present, Systolic murmur Peripheral Pulses: positive: 2+ Abdomen: positive: Non-tender, Other (Ascites present). negative: Tenderness, Guarding, Rebound, Mass Back: positive: Nml inspection Skin: positive: Warm, Skin rash (Maculopapular to the lower extremities up to mid thighs with associated pruritus), Other (Jaundiced). negative: Cyanosis, Decubitus, Puncture wound, Embolic lesions Extremities: positive: Non-tender, Full ROM, Other (1+ pitting edema to the lower extremities). negative: Calf tenderness, Joint swelling, Diego's sign/cords Neurologic/Psychiatric: positive: Oriented x3, CN's nml (2-12) - LABS Result Diagrams: 10/29/18 04:38 10/29/18 04:38 - SEPSIS Current Stage of Sepsis: Ruled out Possible source of Sepsis: Other (Patient meets SIRS criteria due to the fact that no source of infection present) Sepsis Criteria: WBC count greater than 10% bands, COPY CLERK: altered consciousness (unrelated to primary neuro pathology), Hepatic: Bilirubin greater than 2mg/dl - QUALITY (Female Hip Fx Only) Was patient sent home on osteoporosis medication?: No (Did not meet criteria) - FOLLOW UP Follow Up: Patient to be followed up with PCP on 11/02/18 at 9:00 AM. To follow-up with primary mobility architect manager Dr. Castro in 2-3 weeks as well as primary oncologist, Dr. Aponte within 1-2 weeks or as scheduled. I discused with the patient and the importance of continued medical mgmt with lactulose as it pertains to her recurrent hepatic encephalopathy and the consumption of lean meats, poultry, fish and legumes as well as plant based proteins to increase caloric needs at the same time preventing her from becoming malnourished. In addition, patient likely would require a TIPS procedure which would help with patients hyper bilrubinemia, jaundice, portal gastropathy with confirmed esophagel varices, as well as ascites as she would likely require another paracentesis as an outpatient. - TIME SPENT Time Spent in Discharge (Minutes): 35"
[2018-10-29] MEDS: NADOLOL 20 MG TABLET PO SCH (12:20)
[2018-10-29 17:50] VITALS: BP 110/62
== END 2018-10-29 17:50 | disposition home or self-care (01) | DRG 442 ==
LOC: EDUNIT# → ED 07:48 → ICU 14:04
PROVIDERS: ADMIT Family Medicine; ATTEND Family Medicine
DX: K72.90 Hepatic failure, unspecified without coma (principal); D68.51 Activated protein C resistance; R65.10 Systemic inflammatory response syndrome (SIRS) of non-infectious origin without acute organ dysfunction; R18.8 Other ascites; D75.81 Myelofibrosis; C94.6 Myelodysplastic disease, not elsewhere classified; I85.00 Esophageal varices without bleeding; J98.11 Atelectasis; K74.60 Unspecified cirrhosis of liver; E72.20 Disorder of urea cycle metabolism, unspecified; I50.9 Heart failure, unspecified; Z86.718 Personal history of other venous thrombosis and embolism; J45.909 Unspecified asthma, uncomplicated; K64.9 Unspecified hemorrhoids; Z96.659 Presence of unspecified artificial knee joint; Z79.02 Long term (current) use of antithrombotics/antiplatelets; E80.6 Other disorders of bilirubin metabolism; D69.6 Thrombocytopenia, unspecified; R21 Rash and other nonspecific skin eruption; L29.9 Pruritus, unspecified
CPT/HCPCS: 36415; 71045; 76705; 80053; 81001; 82140; 83605; 83690; 84484; 85025; 85610; 85730; 87040; 87150; 96360; 96361; 99284; 99285; A9270; J8499; 81003; 87086

== ENCOUNTER 2018-11-05 00:25 | Outpatient (CLI) | payer MEDICARE | END 2018-11-05 00:26 | disposition critical access hospital (66) | LOC: EMS 00:25 | PROVIDERS: ATTEND Surgery | DX: R41.0 Disorientation, unspecified (principal) | CPT/HCPCS: A0425; A0429 ==

== ENCOUNTER 2018-11-05 00:40 | Inpatient (IN) | payer MEDICARE ==
[2018-11-05] MEDS ORDERED: SODIUM CHLORIDE 0.9% 1,000 ML IV ONE (00:53)
[2018-11-05] MEDS ORDERED: LACTULOSE 10 GM /15 ML UDC PO STA (00:55)
--- NOTE | 2018-11-05 01:22 | ED Physician Documentation ---
PD HPI ALTERED MENTAL STATUS - Stated complaint Stated Complaint: CONFUSED - Chief complaint Chief Complaint: Neuro - History obtained from History obtained from: EMS - History of Present Illness Timing - onset: Today Timing - details: Gradual onset Quality / character: Confused Associated symptoms: General weakness Contributing factors: Anticoagulated, Other (cirrhosis with ascites) Basline status: Alert and oriented X 3, Ambulatory Recently seen: Admitted (Discharged from hospital one week ago) - Additional information Additional information: The patient is a 73-year-old female with a history of non-alcoholic cirrhosis with ascites, who presents via ambulance with increased confusion and generalized weakness. Her told medics that she has become increasingly confused today, and had slid off the edge of the bed because of weakness today. She has a history of similar symptoms with hepatic encephalopathy. She was discharged from the hospital 1 week ago after treatment for hepatic encephalop athy with initial ammonia level of 117. She was also hospitalized 1 month ago with a similar presentation. In addition, her past medical history is significant for Ten 2+ myeloproliferative neoplasm with leukocytosis, mild myelofibrosis, history of right leg DVT and factor V Leiden, for which she takes lifelong warfarin. Review of Systems Unable to obtain: AMS, Confused PD PAST MEDICAL HISTORY - Past Medical History Cardiovascular: Congestive heart failure, Deep vein thrombosis Respiratory: Asthma, Pneumonia, Other Neuro: None Endocrine/Autoimmune: None GI: Hemorrhoids, Cirrhosis : None HEENT: Dental implants Psych: None Musculoskeletal: None Derm: None - Past Surgical History Past Surgical History: Yes Ortho: Knee replacement /GRINDER: Dilation and currettage HEENT: Tonsil/Adenoidectomy - Present Medications Home Medications: Ambulatory Orders Medication Instructions Recorded Confirmed Warfarin [Coumadin] 2.5 mg PO DAILY 03/14/17 11/05/18 Omeprazole 20 mg PO DAILY #30 tablet. 03/29/18 11/05/18 Furosemide [Lasix] 40 mg PO BID 06/05/18 11/05/18 Multivitamin [Multiple Vitamins] 1 tab PO DAILY 10/08/18 11/05/18 Sertraline [Zoloft] 25 mg PO DAILY 10/08/18 11/05/18 Nadolol 10 mg PO DAILY #30 tablet 10/10/18 11/05/18 Spironolactone [Aldactone] 100 mg PO BID #60 tablet 10/10/18 11/05/18 rifAXIMin [Xifaxan] 550 mg PO BID #60 tablet 10/10/18 11/05/18 Lactulose 45 gm PO TID #1 bottle 10/29/18 11/05/18 hydrOXYzine PAMOATE [Vistaril] 25 mg PO Q6HR PRN #40 capsule 10/29/18 11/05/18 - Allergies Allergies/Adverse Reactions: Allergies Allergy/AdvReac Type Severity Reaction Status Date / Time adhesive tape AdvReac Rash Verified 11/05/18 00:48 - Living Situation Living Situation: reports: With spouse/s.o. Living Arrangement: reports: At home - Social History Does the pt smoke?: No Smoking Status: Never smoker Does the pt drink ETOH?: Yes Does the pt have substance abuse?: No - Immunizations Immunizations are current?: Yes - POLST Patient has POLST: No POLST Status: Full Code PD ED PE NORMAL - Vitals Vital signs reviewed: Yes (normal) - General General: Other (Alert but confused, jaundiced appearing female.) - HEENT HEENT: Atraumatic, PERRL, EOMI, Other (Dry mucous membranes; icteric sclera.) - Neck Neck: Supple, no meningeal sign, No adenopathy, No JVD - Cardiac Cardiac: RRR - Respiratory Respiratory: No respiratory distress, Clear bilaterally - Abdomen Abdomen: Soft, Non tender, Other (Distended with ascites.) - Back Back: No CVA TTP - Derm Derm: No rash - Extremities Extremities: No tenderness to palpate, No calf tenderness / cord - Neuro Neuro: No motor deficit, Other (Alert, tracks visually, responds pleasantly, but unreliably to some questions, but generally just stares blankly.) Eye Opening: Spontaneous Motor: Obeys Commands Verbal: Confused GCS Score: 14 Results - Vitals Vitals: Vital Signs - 24 hr 11/05/18 11/05/18 00:41 02:26 Temperature 36 C L 36.3 C L Heart Rate 96 92 Respiratory 17 16 Rate Blood Pressure 106/47 L 98/56 L O2 Saturation 97 97 Oxygen O2 Source Room air - Labs Labs: Laboratory Tests 11/05/18 11/05/18 11/05/18 01:11 01:11 01:11 WBC 46.2 H* RBC 3.39 L Hgb 11.9 L Hct 36.1 L MCV 106.5 H MCH 35.1 H MCHC 32.9 RDW 19.5 H Plt Count 85 L MPV 9.6 Neut # (Auto) 43.0 H Lymph # (Auto) 0.9 L [place] # (Auto) 1.2 H Eos # (Auto) 0.5 Baso # (Auto) 0.6 H Absolute Nucleated RBC 0.03 Nucleated RBC % 0.1 Manual Slide Review Indicated Platelet Estimate DECREASED (<130,000) Platelet Morphology NORMAL APPEARANCE RBC Morph Micro Appear 2+ OVALOCYTES PT 26.8 H INR 2.4 H Sodium 130 L Potassium 4.9 Chloride 103 Carbon Dioxide 17 L Anion Gap 10.0 BUN 52 H Creatinine 1.6 H Estimated GFR (MDRD) 32 L Glucose 114 H Lactic Acid Calcium 8.5 Total Bilirubin 4.2 H AST 63 H ALT 37 Alkaline Phosphatase 181 H Ammonia Total Protein 5.6 L Albumin 1.9 L Globulin 3.7 Albumin/Globulin Ratio 0.5 L Lipase 79 H Urine Color Urine Clarity Urine pH Ur Specific [place] Urine Protein Urine Glucose (UA) Urine Ketones Urine Occult Blood Urine Nitrite Urine Bilirubin Urine Urobilinogen Ur Leukocyte Esterase Ur Microscopic Review Urine Culture Comments 11/05/18 11/05/18 11/05/18 01:11 01:11 01:30 WBC RBC Hgb Hct MCV MCH MCHC RDW Plt Count MPV Neut # (Auto) Lymph # (Auto) [place] # (Auto) Eos # (Auto) Baso # (Auto) Absolute Nucleated RBC Nucleated RBC % Manual Slide Review Platelet Estimate Platelet Morphology RBC Morph Micro Appear PT INR Sodium Potassium Chloride Carbon Dioxide Anion Gap BUN Creatinine Estimated GFR (MDRD) Glucose Lactic Acid 3.8 H* Calcium Total Bilirubin AST ALT Alkaline Phosphatase Ammonia 277.4 H* Total Protein Albumin Globulin Albumin/Globulin Ratio Lipase Urine Color DK. ORANGE Urine Clarity CLEAR Urine pH 6.0 Ur Specific [place] 1.020 Urine Protein NEGATIVE Urine Glucose (UA) NEGATIVE Urine Ketones NEGATIVE Urine Occult Blood NEGATIVE Urine Nitrite NEGATIVE Urine Bilirubin SMALL H Urine Urobilinogen 0.2 (NORMAL) Ur Leukocyte Esterase NEGATIVE Ur Microscopic Review NOT INDICATED Urine Culture Comments NOT INDICATED PD MEDICAL DECISION MAKING - ED course Complexity details: reviewed old records, reviewed results, re-evaluated arti t, considered differential, d/w patient, d/w family, d/w community resource consultant ED course: The patient's presentation is significant for recurrent hepatic encephalopathy, with an ammonia level of 277. Her lactate level is elevated at 3.8. She appears dehydrated, with dry buccal mucosa. Her white count is elevated at 46.7, which is similar to her previous levels with her myeloproliferative disorder. Treatment in the emergency department included administration of normal saline IV and lactulose 45 g orally. Since she was not coherent enough to drink orally, a nasogastric tube was inserted, and the lactulose was administered via NG tube. Soft restraints were applied to help keep the patient from pulling out the NG tube. After blood cultures were drawn, ceftriaxone 2 g were administered IV. I discussed her condition with Dr. Mireles, who accepts her for further evaluation and treatment. Departure - Departure Disposition: 66 [facility] DC/Xfer Clinical Impression: Hepatic encephalopathy, Non-alcoholic cirrhosis, Myeloproliferative neoplasm, Factor V Leiden mutation Ascites Qualifiers: Ascites type: other type Qualified Code(s): R18.8 - Other ascites Discharge Date/Time: 11/05/18 04:20
[2018-11-05 01:26] LABS: BASOPHILS # (AUTO) 0.6 10^3/uL (0.0-0.1); BASOPHILS % (AUTO) 1.3 %; EOSINOPHILS # (AUTO) 0.5 10^3/uL (0.0-0.7); HGB - HEMOGLOBIN 11.9 g/dL (12.0-16.0); LYMPHOCYTES # (AUTO) 0.9 10^3/uL (1.5-3.5); MEAN CORPUSCULAR HEMOGLOBIN 35.1 pg (27.0-31.0); MEAN CORPUSCULAR HGB CONC 32.9 g/dL (32.0-36.0); MEAN CORPUSCULAR VOLUME 106.5 fL (81.0-99.0); MEAN PLATELET VOLUME 9.6 fL (7.9-10.8); MONOCYTES # (AUTO) 1.2 10^3/uL (0.0-1.0); MONOCYTES % (AUTO) 2.6 %; NEUTROPHILS % (AUTO) 93.1 %; PLT - PLATELET COUNT 85 10^3/uL (130-450); RED BLOOD COUNT 3.39 10^6/uL (4.20-5.40); RED CELL DISTRIBUTION WIDTH 19.5 % (12.0-15.0)
[2018-11-05 01:27] LABS: INR 2.4 (0.8-1.2); PT - PROTHROMBIN TIME 26.8 secs (9.9-12.6)
[2018-11-05 01:29] LABS: WHITE BLOOD COUNT 46.2 x10^3/uL (4.8-10.8)
[2018-11-05 01:32] LABS: GLUCOSE, URINE (UA) NEGATIVE (NEGATIVE); KETONES,URINE (UA) NEGATIVE (NEGATIVE); LEUKOCYTE ESTERASE, URINE NEGATIVE (NEGATIVE); NITRITE,URINE NEGATIVE (NEGATIVE); OCCULT BLOOD,URINE NEGATIVE (NEGATIVE); PROTEIN,URINE NEGATIVE (NEGATIVE); UROBILINOGEN,URINE 0.2 (NORMAL) E.U./dL (NORMAL)
[2018-11-05 01:35] LABS: BILIRUBIN,URINE SMALL (NEGATIVE); CLARITY,URINE CLEAR (CLEAR); ICTOTEST,URINE POSITIVE
[2018-11-05 01:37] LABS: ALBUMIN 1.9 g/dL (3.2-5.5); ALBUMIN/GLOBULIN RATIO 0.5 (1.0-2.2); BILIRUBIN,TOTAL 4.2 mg/dL (0.2-1.0); CALCIUM 8.5 mg/dL (8.5-10.3); CREATININE 1.6 mg/dL (0.4-1.0); TOTAL PROTEIN 5.6 g/dL (6.7-8.2)
[2018-11-05 01:59] LABS: PLATELET ESTIMATE, MANUAL DECREASED (<130,000) (NORMAL); PLATELET MORPHOLOGY NORMAL APPEARANCE (NORMAL)
[2018-11-05] MEDS ORDERED: cefTRIAXone 2 GM in SODIUM CHLORIDE 0.9% MINIBAG 100 ML IV STA (02:45)
[2018-11-05] MEDS ORDERED: ALBUMIN 25% 12.5 GM/50 ML VIAL IV STA (03:35)
--- NOTE | 2018-11-05 03:48 | HISTORY & PHYSICAL EXAMINATION ---
Chief Complaint - Chief Complaint Chief Complaint: altered mental status History of Present Illness - Admitted From Admitted From:: 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 She was last admitted to the hospital on 10/27/18 for the same reason as today and discharged on 10/29/18. After discharge she saw her PCP on 11/02/18. At that time her lactulose dose was decreased by half. At the time of that visit, her mentation was fully intact and she provided history. As patient's mentation became increasingly altered over the past days, she has been ingesting less of the lactulose. Her history is mainly provided by her . She is awake and readily responds to question but her responses are not always accurate. She recognizes her and can tell that she is in the hospital. She appears jaundiced. denies any account of fever or pain. He reports multiple episodes of diarrhea. She was found to have and NH3 level of 227, Tbili of 4.2, lactic acid of 3.8 and a BC of 46. She has anasarca up to her abdomen and a moderate size ascites. She has significantly dry oral mucosa As a result of her presentation, she is being admitted for further treatment History - Past Medical History Cardiovascular: reports: Congestive heart failure, Deep vein thrombosis Respiratory: reports: Asthma, Pneumonia, Other Neuro: reports: None Endocrine/Autoimmune: reports: None GI: reports: Hemorrhoids, Cirrhosis : reports: None HEENT: reports: Dental implants Psych: reports: None Musculoskeletal: reports: None Derm: reports: None MRSA Hx?: No Other Past Medical History: Hepatic encephalopathy. Myeloproliferative neoplasm. 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 Social History Notes: The patient lives in [place], [place] with her . Her and her have been for almost 50 years. 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 She has 2 children. She does drink wine occasionally but denies ever having smoked cigarettes and denies any illicit drug use per - POLST Patient has POLST: No POLST Status: Full Code Meds/Allgy - Home Medications Home Medications: Ambulatory Orders Medication Instructions Recorded Confirmed Warfarin [Coumadin] 2.5 mg PO DAILY 03/14/17 11/05/18 Omeprazole 20 mg PO DAILY #30 tablet. 03/29/18 11/05/18 Furosemide [Lasix] 40 mg PO BID 06/05/18 11/05/18 Multivitamin [Multiple Vitamins] 1 tab PO DAILY 10/08/18 11/05/18 Sertraline [Zoloft] 25 mg PO DAILY 10/08/18 11/05/18 Nadolol 10 mg PO DAILY #30 tablet 10/10/18 11/05/18 Spironolactone [Aldactone] 100 mg PO BID #60 tablet 10/10/18 11/05/18 rifAXIMin [Xifaxan] 550 mg PO BID #60 tablet 10/10/18 11/05/18 Lactulose 45 gm PO TID #1 bottle 10/29/18 11/05/18 hydrOXYzine PAMOATE [Vistaril] 25 mg PO Q6HR PRN #40 capsule 10/29/18 11/05/18 - Allergies Allergies/Adverse Reactions: Allergies Allergy/AdvReac Type Severity Reaction Status Date / Time adhesive tape AdvReac Rash Verified 11/05/18 00:48 Review of Systems - Cardiovascular Cariovascular: reports: Edema. denies: Chest pain, Exertional dyspnea - Respiratory Respiratory: denies: Cough, Sputum production, Wheezing, Snoring, Hemoptysis, SOB at rest - Gastrointestinal Gastrointestinal: reports: Diarrhea. denies: Abdominal pain, Constipation, Black stools, Nausea, Vomiting, Coffee grounds emesis - Genitourinary Genitourinary: denies: Dysuria, Frequency, Urgency, Hematuria, Incontinence, Flank pain - Musculoskeletal Musculoskeletal: denies: Muscle pain, Back pain, Muscle aches, Stiffness, Gout, Joint pain - Integumentary Integumentary: denies: Pruritis, Lesions, Dryness - Neurological Neurological: denies: General weakness, Focal weakness, Headache, Dizziness - Psychiatric Psychiatric: denies: Depression, Anxiety - Endocrine Endocrine: denies: Polyuria, Polydypsia - Hematologic/Lymphatic Hematologic/Lymphatic: reports: Bruising, Blood clots, Bleeding tendencies Exam - Vital Signs Vital Signs: Vital Signs x48h Temp Pulse Resp BP Pulse Ox 11/05/18 02:26 36.3 C L 92 16 98/56 L 97 11/05/18 00:41 36 C L 96 17 106/47 L 97 - Physical Exam General Appearance: positive: No acute distress, Lethargic Eyes Bilateral: positive: Normal inspection, PERRL, EOMI, Conjunctivae nml. negative: No scleral icterus ENT: positive: ENT inspection nml, Purulent nasal drainage, Dry mucous membranes Neck: positive: No JVD, Trachea midline Respiratory: positive: Chest non-tender, Breath sounds nml. negative: Wheezes, Rales, Rhonchi Cardiovascular: positive: Tachycardia, Systolic murmur Abdomen: positive: Hepatomegaly, Other (abdomen distended, anasarca noted and ascites) Back: positive: Nml inspection Skin: positive: Warm, Dry, Other (jaundiced). negative: Color nml Extremities: positive: Pedal edema (3+ bilaterally) Neurologic/Psychiatric: negative: Oriented x3 Sepsis Event Note (H) - Evaluation Current Stage of Sepsis: Sepsis Possible source of Sepsis: positive: GI tract/intra-abdominal - Sepsis Criteria Sepsis Criteria: Recorded Heart Rate greater than 90 bpm, WBC count greater than 10% bands, Metabolic: lactate > 2 mmol/L, Hepatic: Bilirubin greater than 2mg/dl, Hematologic: platelets < 100,000; INR > 1.5, or a PTT>60 seconds Conclusion/Plan - Problem List (1) Hepatic encephalopathy Conclusion/Plan: NH3 level 227. Suspect 2/2 to recent reduction of lactulose dose by 50% NG tube in place. Lactulose 30g po qid ordered. Will monitor levels daily Pt NPO (2) Leukocytosis Conclusion/Plan: 2/2 Myeloproliferative neoplasm vs ?Infection vs Reactive Patient follows with Dr Aponte at the [facility] Last visit was 09/04/18. Condition was being monitored WBC today is even higher at 46. Will reach out to oncology for input Blood cultures drawn. Patient started on 2g Rocephin empirically Paracentesis not possible due to INR of 2.4 and active coumadin use Qualifiers: Leukocytosis type: bandemia Qualified Code(s): D72.825 - Bandemia (3) Ascites Conclusion/Plan: 2/2 cirrhosis from LEBLANC Paracentesis not possible because patient is on coumadin and her INR is 2.4 Patient needs to continue coumadin without interruption due to Factor V Leidin, Hx of DVT's and increased risk of clotting at INR < 2 Pt intravascularly volume depleted. Will administer albumin. On aldactone and lasix at home. Will hold for now in light of lactulose, anticipated diarrhea while NPO. Qualifiers: Ascites type: other type Qualified Code(s): R18.8 - Other ascites (4) Factor V Leiden mutation Conclusion/Plan: On coumadin. Will continue (5) Myeloproliferative neoplasm Conclusion/Plan: Pt sees Dr Aponte. Consult in the am (6) Hyperbilirubinemia Conclusion/Plan: ?Increased production vs Decreased Clearance ?Obstruction vs lysis vs other Will check Total and Direct bilirubin Check haptoglobin - Lab Results Fish Bones: 11/05/18 01:11 11/05/18 01:11 Core Measures - Anticipated LOS I expect patient to be DC'd or transferred within 96 hours.: Yes - DVT/VTE - Prophylaxis VTE/DVT Device ordered at admit?: Yes VTE/DVT Prophylaxis med ordered at admit?: Yes
[2018-11-05] MEDS: LACTULOSE 10 GM /15 ML UDC PO SCH ×5 (05:32→20:45)
--- NOTE | 2018-11-05 05:46 | XRAY Report ---
Reason: Confirm NGT Placement Procedure Date: 11/05/2018 Accession Number: [id number] / [id number] Procedure: XR - Chest 1 View X-Ray CPT Code: 75741 FULL RESULT: EXAM: CHEST RADIOGRAPHY EXAM DATE: 11/05/2018 05:05 AM. CLINICAL HISTORY: Confirm NGT placement. COMPARISON: CHEST 1 VIEW 10/27/2018 2:11 PM. TECHNIQUE: 1 view. FINDINGS IMPRESSION: 1. Lung volumes are small. There is interstitial prominence. There is also hazy interstitial opacity and peribronchial cuffing. This may be secondary to pulmonary edema. It is likely accentuated secondary to small lung volumes. 2. Mild enlargement of the cardiac silhouette is present. 3. There is no definite evidence of a pneumothorax on this exposure. 4. No large effusion is noted. 5. Orogastric tube extends below the inferior margin of the film. 6. Moderate bilateral shoulder degenerative change. Bilateral acromial inferior spurs, which could predispose the patient to impingement. RADIA
[2018-11-05 06:21] LABS: BASOPHILS % (AUTO) 0.8 %; EOSINOPHILS % (AUTO) 1.1 %; MEAN CORPUSCULAR HEMOGLOBIN 35.5 pg (27.0-31.0); MEAN CORPUSCULAR HGB CONC 33.2 g/dL (32.0-36.0); MEAN CORPUSCULAR VOLUME 106.9 fL (81.0-99.0); MEAN PLATELET VOLUME 9.3 fL (7.9-10.8); MONOCYTES % (AUTO) 3.6 %; NEUTROPHILS % (AUTO) 92.5 %; PLT - PLATELET COUNT 79 10^3/uL (130-450); RED BLOOD COUNT 3.37 10^6/uL (4.20-5.40)
[2018-11-05 06:23] LABS: WHITE BLOOD COUNT 46.8 x10^3/uL (4.8-10.8)
[2018-11-05 06:27] LABS: ALBUMIN/GLOBULIN RATIO 0.5 (1.0-2.2); BILIRUBIN,TOTAL 4.1 mg/dL (0.2-1.0); CALCIUM 8.3 mg/dL (8.5-10.3); CREATININE 1.5 mg/dL (0.4-1.0); TOTAL PROTEIN 5.7 g/dL (6.7-8.2)
[2018-11-05] MEDS: SODIUM CHLORIDE 0.9% 1,000 ML IV SCH ×2 (06:50→18:33)
[2018-11-05 06:51] LABS: BILIRUBIN,DIRECT 1.8 mg/dL (0.1-0.5); BILIRUBIN,INDIRECT 2.7 mg/dL; BILIRUBIN,TOTAL 4.5 mg/dL (0.2-1.0)
[2018-11-05] MEDS: PANTOPRAZOLE 40 MG VIAL IVP SCH (06:52)
[2018-11-05] MEDS: SODIUM CHLORIDE FLUSH 0.9% 10 ML SYRINGE IVP PRN (06:56)
[2018-11-05 08:36] LABS: PLATELET ESTIMATE, MANUAL DECREASED (<130,000) (NORMAL); PLATELET MORPHOLOGY NORMAL APPEARANCE (NORMAL)
[2018-11-05 08:41] LABS: ABNORMAL LYMPHS % (MANUAL) 0 %
[2018-11-05 08:43] LABS: BAND NEUTROPHILS % (MANUAL) 17 %; BASOPHILS # (MANUAL) 1.4 10^3/uL (0-0.1); BASOPHILS % (MANUAL) 3 %; LYMPHOCYTES # (MANUAL) 0.5 10^3/uL (1.5-3.5); LYMPHOCYTES % (MANUAL) 1 %; MONOCYTES # (MANUAL) 4.2 10^3/uL (0.0-1.0); NEUTROPHILS # (MANUAL) 40.7 10^3/uL (1.5-6.6); NEUTROPHILS % (MANUAL) 70 %
[2018-11-05 08:44] LABS: DIFFERENTIAL COMMENT MANUAL DIFFERENTIAL
[2018-11-05] MEDS ORDERED: POLYETHYLENE GLYCOL 3350 17 GM PACKET PO SCH (09:00)
[2018-11-05] MEDS: MIN OIL/DIMETHICON/COCONUT OIL 92 GM TUBE TOP PRN ×2 (10:00→12:00)
[2018-11-05] MEDS: SODIUM CHLORIDE FLUSH 0.9% 10 ML SYRINGE IVP SCH ×3 (10:59→23:41)
--- NOTE | 2018-11-05 13:15 | ADVANCE CARE PLANNING NOTE ---
Advance Care Planning - Date/Time Date: 11/05/18 Time: 12:30 - Purpose of encounter Text: To determine patient's wishes regarding aggressiveness of care and confirm that Code Blue status is Full Code - Parties in attendance Parties in attendance: I spoke to her and son in a private discussion - Decisional capacity Decisional capacity of: The patient cannot make decisions as she is in hepatic encephalopathy currently - Subjective/Patient's story Subjective/Patient's story: The patient has Factor V Leiden abnormality, has had a DVT and is on lifelong Coumadin. The has been told that she would need bridging with Heparin or Lovenox to come off and restart Coumadin, for procedures like a paracentesis or a surgical procedure like a PEG tube. She has LEBLANC and has had 3 admissions for hepatic encephalopathy, with each one sh is more confused and they are more frequent. She has no strength to drink from a straw and has a poor appetite, so she is unable to get in adequate calories and protein. The Gastroenterology visit was last done in Sep. There was no discussion ever about her prognosis. - Objective/Medical story Objective/Medical Story: 73 y/o female with LEBLANC, Factor V Leiden, JAK2 (+) myeloproliferative neoplasm with marked leukocytosis, and history of asthma. She was admitted earlier this month for hepatic encephalopathy, started and discharged on Lactulose. She was having frequent diarrhea, and her PCP decreased the dose by 1/2 just 4 days ago. Over those 4 days she became more confused, lethargic with slurring of speech and was brought in to ER and admitted overnight. She would not cooperate with drinking Lactulose, so an ng tube was inserted and Lactulose is being dosed per ng. Her serum albumen is 1.9, so she got a dose of iv Albumen and her diuretic was ordered to continue. She had no imaging of her ascites done to determine if it should be tapped. She is currently in wrist restraints to not pull out the ng tube and is npo, not on an oral diet. - Goals of Care Goals of care determinations: She wants to be a full code, which she discussed with her recently. They did not discuss what she wants as far as PEG tube or other aggressive care. She would agree to a paracentesis because that was discussed with her Library Assistant, Dr Greenfield at [facility]. I plan on reaching out to Dr Greenfield to get recommendations about further care for her. Also, I recommend a Palliative Care Consult and described what Palliative Care means, and the would like that. I will order a consult with Shakira Cope NP. She will remain a Full Code. - Plan Plan: As described in Goals above - Code Status Code Status: Attempt Resuscitation - Time Spent on Advance Care Planning Time spent on advance care plannin min
[2018-11-05] MEDS ORDERED: CARBOXYMETHYLCELLULOSE OPHTH DROPS EACHEYE PRN (14:18)
[2018-11-05] MEDS: ZINC OXIDE 20% OINT 28.35 GM TUBE TOP PRN ×2 (15:00→17:00)
[2018-11-06] MEDS ORDERED: LIDOCAINE JELLY 2% 5 ML TUBE TOP ONE (01:59)
[2018-11-06] MEDS ORDERED: LIDOCAINE OINTMENT 5% 35.44 GM TUBE ONE (02:09)
[2018-11-06] MEDS: SODIUM CHLORIDE FLUSH 0.9% 10 ML SYRINGE IVP PRN (06:08)
[2018-11-06] MEDS: SODIUM CHLORIDE 0.9% 1,000 ML IV SCH (06:08)
[2018-11-06] MEDS: PANTOPRAZOLE 40 MG VIAL IVP SCH (06:08)
[2018-11-06 06:25] LABS: ALBUMIN 1.9 g/dL (3.2-5.5); ALBUMIN/GLOBULIN RATIO 0.5 (1.0-2.2); BILIRUBIN,TOTAL 4.7 mg/dL (0.2-1.0); CALCIUM 8.1 mg/dL (8.5-10.3); CREATININE 1.6 mg/dL (0.4-1.0); TOTAL PROTEIN 5.4 g/dL (6.7-8.2)
[2018-11-06 06:26] LABS: INR 2.8 (0.8-1.2); PT - PROTHROMBIN TIME 31.5 secs (9.9-12.6)
[2018-11-06 06:35] LABS: EOSINOPHILS % (AUTO) 1.6 %; HGB - HEMOGLOBIN 11.8 g/dL (12.0-16.0); MEAN CORPUSCULAR HEMOGLOBIN 35.2 pg (27.0-31.0); MEAN CORPUSCULAR HGB CONC 32.7 g/dL (32.0-36.0); MEAN CORPUSCULAR VOLUME 107.4 fL (81.0-99.0); MEAN PLATELET VOLUME 8.8 fL (7.9-10.8); MONOCYTES % (AUTO) 2.4 %; PLT - PLATELET COUNT 76 10^3/uL (130-450); RED BLOOD COUNT 3.37 10^6/uL (4.20-5.40); RED CELL DISTRIBUTION WIDTH 19.6 % (12.0-15.0)
[2018-11-06 06:55] LABS: WHITE BLOOD COUNT 46.9 x10^3/uL (4.8-10.8)
[2018-11-06 06:59] LABS: ABNORMAL LYMPHS % (MANUAL) 1 %; BAND NEUTROPHILS % (MANUAL) 28 %; BASOPHILS # (MANUAL) 0.9 10^3/uL (0-0.1); BASOPHILS % (MANUAL) 2 %; EOSINOPHILS # (MANUAL) 0.5 10^3/uL (0-0.7); LYMPHOCYTES # (MANUAL) 1.4 10^3/uL (1.5-3.5); LYMPHOCYTES % (MANUAL) 2 %; METAMYELOCYTES % (MANUAL) 1 %; MONOCYTES # (MANUAL) 1.4 10^3/uL (0.0-1.0); MYELOCYTES % (MANUAL) 1 %; NEUTROPHILS # (MANUAL) 41.7 10^3/uL (1.5-6.6); NEUTROPHILS % (MANUAL) 61 %
[2018-11-06 07:00] LABS: PLATELET ESTIMATE, MANUAL DECREASED (<130,000) (NORMAL)
[2018-11-06] MEDS ORDERED: CHERRY SYRUP 10 ML UDC PO ONE (07:57)
[2018-11-06] MEDS ORDERED: PHYTONADIONE 10 MG/ML AMP PO ONE (07:57)
[2018-11-06] MEDS: SODIUM CHLORIDE FLUSH 0.9% 10 ML SYRINGE IVP SCH ×3 (08:57→23:36)
[2018-11-06] MEDS: LACTULOSE 10 GM /15 ML UDC PO SCH ×4 (08:57→20:39)
--- NOTE | 2018-11-06 15:26 | ADVANCE CARE PLANNING NOTE ---
Advance Care Planning - Date/Time Date: 11/06/18 Time: 15:22 - Purpose of encounter Text: and her daughter would like to revisit plans for their mother - Parties in attendance Parties in attendance: and daughter, son not present and they do not want to discuss this in front of patient - Decisional capacity Decisional capacity of: Patient is impaired. She has hepatic encephalopathy. Sometimes has memory problems. Forgets that she received medication and becomes angry with nursing to say that they did not give her her meds but they did. She also forgets conversations with her and says that things did not happen but they did. - Subjective/Patient's story Subjective/Patient's story: She has had a sharp deterioration in functional status over the last year. The last time they remember her having a normal life was in November 2017. 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 By November 2017 she did a tour of the [facility] with her , and even though she was starting to slow down from a endurance perspective, she was able to complete it. By November 2017 she was not able to put her shoes on, was lethargic, losing weight. They think that was the last "good time" she had. Between November and now her ability to take care of herself is gone. She can no longer be relied on to take medications even though she insists that she is fine. She has been getting increasingly angry at her and lashes out at him and berates him for being useless. She is described as a person who is very strong willed, organized, and was looking like she was 65 as opposed to 73. Once her illness hit her in March, it was very dismayed how bad she looked by May 2018. In her mind she is not ill. In her mind she is perfectly fine. A liver transplant was offered as a possible option but not in very encouraging terms. In her mind she is going to be on the liver transplant list. - Objective/Medical story Objective/Medical Story: She is a 73-year-old female with factor V Leiden deficiency, myeloproliferative disorder with a gradually but definitely rising white cell count over the last few months. In March 2018 she was diagnosed with cirrhosis and has been deteriorating with regards to liver failure and ascites. She has now been admitted several times with hepatic encephalopathy. 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 We are trying to make that happen. - Goals of Care Goals of care determinations: She wishes to be a full code. Her family is come to the conclusion that they do not want that. But they do not know how to bring it up. Her has decided that he can no longer take care of her. The physicality in the emotional burden is getting too much. They are asking me to contact social work and let them know that they do not want to bring her home after this discharge. - Plan Plan: I would like to sit down with the patient and discussed her prognosis with her. But the family is not wanting this at this time. They feel that she will become very angry, and she will lash out at her . They would like to do something a little bit more stepwise. They would like her to go to rehab at [facility]. See if she can increase her strength and her mobility because she is so weak. She is become very malnourished and it has been hard to follow a diet she wants so she has lost a lot of muscle mass. After being on a good diet, rehab program, and stable medication regime they would like to reassess her status. If at the end of the timeframe she has been at [facility] and she has improved, he is willing to take her home and start palliative care. If she does not improve, he may wish to transition to private pay SNF with Hospice. He will contact the gastroenterology office and to see how serious they are about her being a candidate for a liver transplant. He will also sit down to speak to the delicatessen department manager about his 's prognosis. He would like the delicatessen department manager to give his the news if it is bad news. She would take it better from her than from anybody else. - Code Status Code Status: Attempt Resuscitation - Time Spent on Advance Care Planning Time spent on advance care plannin minutes
--- NOTE | 2018-11-06 15:42 | PROVIDER PROGRESS NOTE ---
Subjective - Prog Note Date Prog Note Date: 11/06/18 Prog Note Time: 15:39 - Subjective Pt reports feeling: No change Subjective: She has been having frequent bowel movements. She is at half to 5 scant small bowel movements since 730 this morning and she is not happy. She and her report that she is having to get up every 1-2 hours to have a BM at home. That is why her lactulose was cut in half. She is now much more awake. Approaching her baseline mental status. and daughter gave me a description of her deterioration over the last few months. She is been getting more and more angry at her . She is a very organized person who has always been in "control". She is now has to rely on her to give her medicines, help her eat, get her to and from doctor's appointments and she is very angry at him. She does not acknowledge that her illness is slowly causing her to deteriorate to the point of possible in the near future. She feels that "she is fine" and that all she needs is "a liver transplant". Current Medications - Current Medications Current Medications: Active Medications Carboxymethylcellulose (Refresh 1% Ophth Drops) 1 drops EACHEYE PRN PRN PRN Reason: Dry Eye Last Admin: 11/05/18 15:00 Dose: 1 drops Lactulose (Enulose) 30 gm PO QID [facility] Last Admin: 11/06/18 13:36 Dose: 30 gm Mineral Oil (Cavilon) 1 applic TOP PRN PRN PRN Reason: Skin Care Last Admin: 11/05/18 12:00 Dose: 1 applic Multi-Ingredient Ointment (Zinc Oxide) 1 applic TOP PRN PRN PRN Reason: Skin Care Last Admin: 11/05/18 17:00 Dose: 1 applic Pantoprazole Sodium (Protonix) 40 mg IVP QDAC [facility] Last Admin: 11/06/18 06:08 Dose: 40 mg Sodium Chloride (Normal Saline Flush 0.9%) 10 ml IVP PRN PRN PRN Reason: NEEDED PER PROVIDER ORDERS Last Admin: 11/06/18 06:08 Dose: 10 ml Sodium Chloride (Normal Saline Flush 0.9%) 10 ml IVP 0100,0900,1700 [facility] Last Admin: 11/06/18 08:57 Dose: Not Given Warfarin [Coumadin] 2.5 mg PO DAILY 03/14/17 Furosemide [Lasix] 40 mg PO BID 06/05/18 Multivitamin [Multiple Vitamins] 1 tab PO DAILY 10/08/18 Sertraline [Zoloft] 25 mg PO DAILY 10/08/18 Objective - Vital Signs/Intake & Output Reviewed Vital Signs: Yes Vital Signs: Vital Signs x48h Temp Pulse Pulse Resp BP Pulse Ox 11/06/18 11:39 36.3 C L 90 18 96 11/06/18 08:00 36.3 C L 90 18 118/54 L 100 Intake & Output: Intake & Output 11/03/18 11/04/18 11/05/18 11/06/18 23:59 23:59 23:59 23:59 Intake Total 2845.832 1593.330 Output Total 450 100 Balance 2395.832 1493.330 - Objective General Appearance: positive: No acute distress, Lethargic Eyes Bilateral: positive: PERRL Eyes: OU Scleral icterus ENT: positive: Pharynx nml Neck: positive: No JVD. negative: Stiff neck, Carotid bruit Respiratory: positive: Chest non-tender, No respiratory distress, Other (diminished sounds at bases.). negative: Wheezes, Rales, Rhonchi Cardiovascular: positive: Regular rate & rhythm, No gallop. negative: Friction rub Abdomen: positive: Nml bowel sounds, Tenderness (mild and diffuse), Other (distended with fluid wave). negative: Guarding, Rebound Skin: positive: Warm, Dry Extremities: positive: Pedal edema Neurologic/Psychiatric: positive: Oriented x3 (but at times disoriented to person place and time), CN's nml (2-12), Motor nml (no asterixis), Slurred/abnml speech (at times). negative: Facial droop - Lab Results Fish Bones: 11/06/18 05:48 11/06/18 06:07 Other Labs: Lab Results x24hrs 11/06/18 11/06/18 11/06/18 Range/Units 06:07 05:48 05:48 WBC (4.8-10.8) x10^3/uL RBC (4.20-5.40) 10^6/uL Hgb (12.0-16.0) g/dL Hct (37.0-47.0) % MCV (81.0-99.0) fL MCH (27.0-31.0) pg MCHC (32.0-36.0) g/dL RDW (12.0-15.0) % Plt Count (130-450) 10^3/uL MPV (7.9-10.8) fL Neut # (Auto) Lymph # (Auto) [place] # (Auto) Eos # (Auto) Baso # (Auto) Absolute Nucleated RBC Total Counted Band Neuts % (Manual) (0 - 10) % Abnorm Lymph % (Manual) % Metamyelocytes % ( - 0) % Myelocytes % ( - 0) % Nucleated RBC % Neutrophils # (Manual) (1.5-6.6) 10^3/uL Lymphocytes # (Manual) (1.5-3.5) 10^3/uL Monocytes # (Manual) (0.0-1.0) 10^3/uL Eosinophils # (Manual) (0-0.7) 10^3/uL Basophils # (Manual) (0-0.1) 10^3/uL Platelet Estimate (NORMAL) RBC Morph Micro Appear (NORMAL) PT 31.5 H (9.9-12.6) secs INR 2.8 H (0.8-1.2) Sodium 133 L (135-145) mmol/L Potassium 4.3 (3.5-5.0) mmol/L Chloride 109 (101-111) mmol/L Carbon Dioxide 16 L (21-32) mmol/L Anion Gap 8.0 (6-13) BUN 59 H (6-20) mg/dL Creatinine 1.6 H (0.4-1.0) mg/dL Estimated GFR (MDRD) 32 L (>89) Glucose 76 (70-100) mg/dL Calcium 8.1 L (8.5-10.3) mg/dL Total Bilirubin 4.7 H (0.2-1.0) mg/dL AST 55 H (10-42) IU/L ALT 34 (10-60) IU/L Alkaline Phosphatase 145 H (42-121) IU/L Ammonia 45.9 H (7-35) umol/L Total Protein 5.4 L (6.7-8.2) g/dL Albumin 1.9 L (3.2-5.5) g/dL Globulin 3.5 (2.1-4.2) g/dL Albumin/Globulin Ratio 0.5 L (1.0-2.2) 11/06/18 Range/Units 05:48 WBC 46.9 H* (4.8-10.8) x10^3/uL RBC 3.37 L (4.20-5.40) 10^6/uL Hgb 11.8 L (12.0-16.0) g/dL Hct 36.2 L (37.0-47.0) % MCV 107.4 H (81.0-99.0) fL MCH 35.2 H (27.0-31.0) pg MCHC 32.7 (32.0-36.0) g/dL RDW 19.6 H (12.0-15.0) % Plt Count 76 L (130-450) 10^3/uL MPV 8.8 (7.9-10.8) fL Neut # (Auto) Not Reportable Lymph # (Auto) Not Reportable [place] # (Auto) Not Reportable Eos # (Auto) Not Reportable Baso # (Auto) Not Reportable Absolute Nucleated RBC Not Reportable Total Counted 100 Band Neuts % (Manual) 28 H (0 - 10) % Abnorm Lymph % (Manual) 1 % Metamyelocytes % 1 H ( - 0) % Myelocytes % 1 H ( - 0) % Nucleated RBC % Not Reportable Neutrophils # (Manual) 41.7 H (1.5-6.6) 10^3/uL Lymphocytes # (Manual) 1.4 L (1.5-3.5) 10^3/uL Monocytes # (Manual) 1.4 H (0.0-1.0) 10^3/uL Eosinophils # (Manual) 0.5 (0-0.7) 10^3/uL Basophils # (Manual) 0.9 H (0-0.1) 10^3/uL Platelet Estimate DECREASED (<130,000) (NORMAL) RBC Morph Micro Appear 1+ MACROCYTOSIS (NORMAL) PT (9.9-12.6) secs INR (0.8-1.2) Sodium (135-145) mmol/L Potassium (3.5-5.0) mmol/L Chloride (101-111) mmol/L Carbon Dioxide (21-32) mmol/L Anion Gap (6-13) BUN (6-20) mg/dL Creatinine (0.4-1.0) mg/dL Estimated GFR (MDRD) (>89) Glucose (70-100) mg/dL Calcium (8.5-10.3) mg/dL Total Bilirubin (0.2-1.0) mg/dL AST (10-42) IU/L ALT (10-60) IU/L Alkaline Phosphatase (42-121) IU/L Ammonia (7-35) umol/L Total Protein (6.7-8.2) g/dL Albumin (3.2-5.5) g/dL Globulin (2.1-4.2) g/dL Albumin/Globulin Ratio (1.0-2.2) ABX Reporting Has patient been on IV antibiotics over the past 48 hours?: Yes Sepsis Event Note (H) - Evaluation Current Stage of Sepsis: Sepsis Possible source of Sepsis: positive: GI tract/intra-abdominal - Sepsis Criteria Sepsis Criteria: Recorded Heart Rate greater than 90 bpm, WBC count greater than 10% bands, Metabolic: lactate > 2 mmol/L, Hepatic: Bilirubin greater than 2mg/dl, Hematologic: platelets < 100,000; INR > 1.5, or a PTT>60 seconds Assessment/Plan - Problem List (1) Hepatic encephalopathy Impression: NH3 level 227 on admission>45 today Suspect 2/2 to recent reduction of lactulose dose by 50% NG tube was pulled out by patient. Lactulose 30g po qid ongoing and I am not going to reduce dosing yet even though she hates the frequent stools. Will monitor levels daily Pt NPO (2) Leukocytosis with lactic acidosis Conclusion/Plan: 2/2 Myeloproliferative neoplasm vs ?Infection vs Reactive Patient follows with Dr Aponte at the [facility] – [place] Last visit was 09/04/18. Condition was being monitored WBC today is even higher at 46. Will reach out to oncology for input. I have left a message for Dr. Aponte to call me. Blood cultures drawn and negative at 24 hours. Patient started on 2g Rocephin empirically Paracentesis not possible on admission due to INR of 2.4 and active coumadin use Qualifiers: Leukocytosis type: bandemia Qualified Code(s): D72.825 - Bandemia (3) Ascites Conclusion/Plan: 2/2 cirrhosis from [place] Paracentesis not possible because patient is on coumadin and her INR is 2.4 Patient needs to continue coumadin without interruption due to Factor V Leidin, Hx of DVT's and increased risk of clotting at INR < 2 but I will stop coumadin, give lovenox, give Vitamin K. Plan for paracentesis tomorrow. Pt intravascularly volume depleted. Will administer albumin. On aldactone and lasix at home. Will hold for now in light of lactulose, anticipated diarrhea while NPO. Qualifiers: Ascites type: other type Qualified Code(s): R18.8 - Other ascites (4) Factor V Leiden mutation Conclusion/Plan: On coumadin. Will continue (5) Myeloproliferative neoplasm Conclusion/Plan: Pt sees Dr Aponte. Message left for her to call me. She is in the MAC today. (6) Hyperbilirubinemia Conclusion/Plan: ?Increased production vs Decreased Clearance ?Obstruction vs lysis vs other Laboratory Tests 11/05/18 06:06 Total Bilirubin 4.5 H Direct Bilirubin 1.8 H Indirect Bilirubin 2.7
[2018-11-06] MEDS: MIN OIL/DIMETHICON/COCONUT OIL 92 GM TUBE TOP PRN (17:23)
[2018-11-07 06:02] LABS: BASOPHILS % (AUTO) 2.4 %; EOSINOPHILS % (AUTO) 1.9 %; HGB - HEMOGLOBIN 11.7 g/dL (12.0-16.0); LYMPHOCYTES % (AUTO) 2.7 %; MEAN CORPUSCULAR HEMOGLOBIN 35.4 pg (27.0-31.0); MEAN CORPUSCULAR HGB CONC 33.1 g/dL (32.0-36.0); MEAN CORPUSCULAR VOLUME 106.9 fL (81.0-99.0); MEAN PLATELET VOLUME 8.5 fL (7.9-10.8); MONOCYTES % (AUTO) 4.1 %; NEUTROPHILS % (AUTO) 88.9 %; PLT - PLATELET COUNT 68 10^3/uL (130-450)
[2018-11-07 06:10] LABS: WHITE BLOOD COUNT 43.8 x10^3/uL (4.8-10.8)
[2018-11-07 06:11] LABS: ABNORMAL LYMPHS % (MANUAL) 0 %; ALBUMIN/GLOBULIN RATIO 0.6 (1.0-2.2); BILIRUBIN,TOTAL 4.6 mg/dL (0.2-1.0); CALCIUM 8.4 mg/dL (8.5-10.3); CREATININE 1.8 mg/dL (0.4-1.0); INR 2.6 (0.8-1.2); PT - PROTHROMBIN TIME 29.3 secs (9.9-12.6); TOTAL PROTEIN 5.5 g/dL (6.7-8.2)
[2018-11-07] MEDS: PANTOPRAZOLE 40 MG VIAL IVP SCH (06:24)
[2018-11-07] MEDS: SODIUM CHLORIDE FLUSH 0.9% 10 ML SYRINGE IVP PRN (06:24)
[2018-11-07 06:40] LABS: BAND NEUTROPHILS % (MANUAL) 28 %; BASOPHILS # (MANUAL) 0.4 10^3/uL (0-0.1); BASOPHILS % (MANUAL) 1 %; EOSINOPHILS # (MANUAL) 0.9 10^3/uL (0-0.7); LYMPHOCYTES # (MANUAL) 0.9 10^3/uL (1.5-3.5); LYMPHOCYTES % (MANUAL) 2 %; METAMYELOCYTES % (MANUAL) 2 %; MONOCYTES # (MANUAL) 2.2 10^3/uL (0.0-1.0); NEUTROPHILS # (MANUAL) 38.5 10^3/uL (1.5-6.6); NEUTROPHILS % (MANUAL) 60 %
[2018-11-07 06:41] LABS: PLATELET ESTIMATE, MANUAL DECREASED (<130,000) (NORMAL)
[2018-11-07] MEDS ORDERED: PHYTONADIONE 10 MG/ML AMP PO SCH (07:16)
[2018-11-07] MEDS ORDERED: CHERRY SYRUP 10 ML UDC PO SCH (07:16)
[2018-11-07] MEDS ORDERED: [UNRECOGNIZED DRUG - OTHER] PO PRN (07:51)
[2018-11-07] MEDS: SODIUM CHLORIDE FLUSH 0.9% 10 ML SYRINGE IVP SCH ×2 (10:34→16:36)
[2018-11-07 12:17] LABS: INR 2.5 (0.8-1.2); PT - PROTHROMBIN TIME 27.7 secs (9.9-12.6)
[2018-11-07] MEDS ORDERED: BUFFERED LIDOCAINE 10 ML SYRINGE ONE (13:48)
[2018-11-07] MEDS: LACTULOSE 10 GM /15 ML UDC PO SCH ×3 (13:56→21:01)
[2018-11-07] MEDS ORDERED: BUFFERED LIDOCAINE 10 ML SYRINGE IU ONE (15:17)
--- NOTE | 2018-11-07 15:29 | PROVIDER PROGRESS NOTE ---
Subjective - Prog Note Date Prog Note Date: 11/07/18 Prog Note Time: 17:11 - Subjective Pt reports feeling: No change Subjective: Very tired, dry mouth. I have had her n.p.o. since yesterday for a paracentesis. She finally underwent the paracentesis today without any difficulty and a liter was taken off. She denies abdominal pain. She really hates how much diarrhea she is having with the lactulose. I also spoke to the labor relations manager second hand paper machine, Dr. Chau. Dr. Villavicencio is not available today. His cell phone number was [phone]. Current Medications - Current Medications Current Medications: Active Medications Carboxymethylcellulose (Refresh 1% Ophth Drops) 1 drops EACHEYE PRN PRN PRN Reason: Dry Eye Last Admin: 11/05/18 15:00 Dose: 1 drops Lactulose (Enulose) 30 gm PO QID [facility] Last Admin: 11/07/18 16:32 Dose: 30 gm Mineral Oil (Cavilon) 1 applic TOP PRN PRN PRN Reason: Skin Care Last Admin: 11/06/18 17:23 Dose: 1 applic Multi-Ingredient Ointment (Zinc Oxide) 1 applic TOP PRN PRN PRN Reason: Skin Care Last Admin: 11/05/18 17:00 Dose: 1 applic Patient Own Med ( ([place]a Cough Drops)) 2 each PO Q4HR PRN PRN Reason: Cough Sodium Chloride (Normal Saline Flush 0.9%) 10 ml IVP PRN PRN PRN Reason: NEEDED PER PROVIDER ORDERS Last Admin: 11/06/18 06:08 Dose: 10 ml Sodium Chloride (Normal Saline Flush 0.9%) 10 ml IVP 0100,0900,1700 [facility] Last Admin: 11/07/18 16:36 Dose: Not Given Warfarin [Coumadin] 2.5 mg PO DAILY 03/14/17 Furosemide [Lasix] 40 mg PO BID 06/05/18 Multivitamin [Multiple Vitamins] 1 tab PO DAILY 10/08/18 Sertraline [Zoloft] 25 mg PO DAILY 10/08/18 Objective - Vital Signs/Intake & Output Reviewed Vital Signs: Yes Vital Signs: Vital Signs x48h Temp Pulse Resp BP Pulse Ox 11/07/18 13:26 36.5 C 86 18 92/48 L 97 Intake & Output: Intake & Output 11/04/18 11/05/18 11/06/18 11/07/18 23:59 23:59 23:59 23:59 Intake Total 2845.832 1943.330 600 Output Total 450 100 Balance 2395.832 1843.330 600 - Objective General Appearance: positive: No acute distress, Alert, Other (Still slowly moving, slow speech and slow process elderly woman who is gaunt, castell[place] colored, very fatigued appearing. Oral mucosa is so dry that when she smiles her lips stick to her teeth and she has to pick her lips off of her teeth.) Eyes Bilateral: positive: PERRL Eyes: OU Scleral icterus ENT: positive: Dry mucous membranes Neck: positive: No JVD. negative: Stiff neck, Carotid bruit Respiratory: positive: Chest non-tender. negative: Wheezes, Rales, Rhonchi Cardiovascular: positive: Regular rate & rhythm. negative: Gallop/S4, Friction rub Abdomen: positive: Non-tender, Nml bowel sounds, Other (Still mildly distended p annus but not as large as it was before the paracentesis of 1 L) Skin: positive: Warm, Dry, Pallor Extremities: positive: Full ROM, Pedal edema Neurologic/Psychiatric: positive: Oriented x3, CN's nml (2-12), Weakness (Generalized and diffuse), Slurred/abnml speech (Mild. Much improved from admission. But her thought processes still slow and she loses train of thought easily). negative: Motor nml (Psychomotor slowing that is diffuse. But no asterixis) - Lab Results Fish Bones: 11/07/18 05:47 11/07/18 05:47 Other Labs: Lab Results x24hrs 11/07/18 11/07/18 11/07/18 Range/Units 12:01 11:55 05:47 WBC (4.8-10.8) x10^3/uL RBC (4.20-5.40) 10^6/uL Hgb (12.0-16.0) g/dL Hct (37.0-47.0) % MCV (81.0-99.0) fL MCH (27.0-31.0) pg MCHC (32.0-36.0) g/dL RDW (12.0-15.0) % Plt Count (130-450) 10^3/uL MPV (7.9-10.8) fL Neut # (Auto) Lymph # (Auto) [place] # (Auto) Eos # (Auto) Baso # (Auto) Absolute Nucleated RBC Total Counted Band Neuts % (Manual) (0 - 10) % Abnorm Lymph % (Manual) % Metamyelocytes % ( - 0) % Nucleated RBC % Neutrophils # (Manual) (1.5-6.6) 10^3/uL Lymphocytes # (Manual) (1.5-3.5) 10^3/uL Monocytes # (Manual) (0.0-1.0) 10^3/uL Eosinophils # (Manual) (0-0.7) 10^3/uL Basophils # (Manual) (0-0.1) 10^3/uL Platelet Estimate (NORMAL) RBC Morph Micro Appear (NORMAL) Haptoglobin (43-212) mg/dL PT 27.7 H (9.9-12.6) secs INR 2.5 H (0.8-1.2) Sodium (135-145) mmol/L Potassium (3.5-5.0) mmol/L Chloride (101-111) mmol/L Carbon Dioxide (21-32) mmol/L Anion Gap (6-13) BUN (6-20) mg/dL Creatinine (0.4-1.0) mg/dL Estimated GFR (MDRD) (>89) Glucose (70-100) mg/dL Calcium (8.5-10.3) mg/dL Total Bilirubin (0.2-1.0) mg/dL AST (10-42) IU/L ALT (10-60) IU/L Alkaline Phosphatase (42-121) IU/L Ammonia (7-35) umol/L Total Protein (6.7-8.2) g/dL Albumin (3.2-5.5) g/dL Globulin (2.1-4.2) g/dL Albumin/Globulin Ratio (1.0-2.2) Blood Type O POSITIVE Blood Type Recheck O POSITIVE Antibody Screen NEGATIVE 11/07/18 11/07/18 11/07/18 Range/Units 05:47 05:47 05:47 WBC 43.8 H* (4.8-10.8) x10^3/uL RBC 3.30 L (4.20-5.40) 10^6/uL Hgb 11.7 L (12.0-16.0) g/dL Hct 35.3 L (37.0-47.0) % MCV 106.9 H (81.0-99.0) fL MCH 35.4 H (27.0-31.0) pg MCHC 33.1 (32.0-36.0) g/dL RDW 20.0 H (12.0-15.0) % Plt Count 68 L (130-450) 10^3/uL MPV 8.5 (7.9-10.8) fL Neut # (Auto) Not Reportable Lymph # (Auto) Not Reportable [place] # (Auto) Not Reportable Eos # (Auto) Not Reportable Baso # (Auto) Not Reportable Absolute Nucleated RBC Not Reportable Total Counted 100 Band Neuts % (Manual) 28 H (0 - 10) % Abnorm Lymph % (Manual) 0 % Metamyelocytes % 2 H ( - 0) % Nucleated RBC % Not Reportable Neutrophils # (Manual) 38.5 H (1.5-6.6) 10^3/uL Lymphocytes # (Manual) 0.9 L (1.5-3.5) 10^3/uL Monocytes # (Manual) 2.2 H (0.0-1.0) 10^3/uL Eosinophils # (Manual) 0.9 H (0-0.7) 10^3/uL Basophils # (Manual) 0.4 H (0-0.1) 10^3/uL Platelet Estimate DECREASED (<130,000) (NORMAL) RBC Morph Micro Appear 1+ MACROCYTOSIS (NORMAL) Haptoglobin (43-212) mg/dL PT 29.3 H (9.9-12.6) secs INR 2.6 H (0.8-1.2) Sodium (135-145) mmol/L Potassium (3.5-5.0) mmol/L Chloride (101-111) mmol/L Carbon Dioxide (21-32) mmol/L Anion Gap (6-13) BUN (6-20) mg/dL Creatinine (0.4-1.0) mg/dL Estimated GFR (MDRD) (>89) Glucose (70-100) mg/dL Calcium (8.5-10.3) mg/dL Total Bilirubin (0.2-1.0) mg/dL AST (10-42) IU/L ALT (10-60) IU/L Alkaline Phosphatase (42-121) IU/L Ammonia 24.6 (7-35) umol/L Total Protein (6.7-8.2) g/dL Albumin (3.2-5.5) g/dL Globulin (2.1-4.2) g/dL Albumin/Globulin Ratio (1.0-2.2) Blood Type Blood Type Recheck Antibody Screen 11/07/18 11/05/18 Range/Units 05:47 06:06 WBC (4.8-10.8) x10^3/uL RBC (4.20-5.40) 10^6/uL Hgb (12.0-16.0) g/dL Hct (37.0-47.0) % MCV (81.0-99.0) fL MCH (27.0-31.0) pg MCHC (32.0-36.0) g/dL RDW (12.0-15.0) % Plt Count (130-450) 10^3/uL MPV (7.9-10.8) fL Neut # (Auto) Lymph # (Auto) [place] # (Auto) Eos # (Auto) Baso # (Auto) Absolute Nucleated RBC Total Counted Band Neuts % (Manual) (0 - 10) % Abnorm Lymph % (Manual) % Metamyelocytes % ( - 0) % Nucleated RBC % Neutrophils # (Manual) (1.5-6.6) 10^3/uL Lymphocytes # (Manual) (1.5-3.5) 10^3/uL Monocytes # (Manual) (0.0-1.0) 10^3/uL Eosinophils # (Manual) (0-0.7) 10^3/uL Basophils # (Manual) (0-0.1) 10^3/uL Platelet Estimate (NORMAL) RBC Morph Micro Appear (NORMAL) Haptoglobin <8 L (43-212) mg/dL PT (9.9-12.6) secs INR (0.8-1.2) Sodium 137 (135-145) mmol/L Potassium 3.7 (3.5-5.0) mmol/L Chloride 110 (101-111) mmol/L Carbon Dioxide 17 L (21-32) mmol/L Anion Gap 10.0 (6-13) BUN 64 H (6-20) mg/dL Creatinine 1.8 H (0.4-1.0) mg/dL Estimated GFR (MDRD) 28 L (>89) Glucose 120 H (70-100) mg/dL Calcium 8.4 L (8.5-10.3) mg/dL Total Bilirubin 4.6 H (0.2-1.0) mg/dL AST 51 H (10-42) IU/L ALT 33 (10-60) IU/L Alkaline Phosphatase 160 H (42-121) IU/L Ammonia (7-35) umol/L Total Protein 5.5 L (6.7-8.2) g/dL Albumin 2.0 L (3.2-5.5) g/dL Globulin 3.5 (2.1-4.2) g/dL Albumin/Globulin Ratio 0.6 L (1.0-2.2) Blood Type Blood Type Recheck Antibody Screen ABX Reporting Has patient been on IV antibiotics over the past 48 hours?: Yes Sepsis Event Note (H) - Evaluation Current Stage of Sepsis: Sepsis Possible source of Sepsis: positive: GI tract/intra-abdominal - Sepsis Criteria Sepsis Criteria: Recorded Heart Rate greater than 90 bpm, WBC count greater than 10% bands, Metabolic: lactate > 2 mmol/L, Hepatic: Bilirubin greater than 2mg/dl, Hematologic: platelets < 100,000; INR > 1.5, or a PTT>60 seconds Assessment/Plan - Problem List (1) Hepatic encephalopathy Impression: NH3 level 227 on admission>45>25 today Suspect 2/2 to recent reduction of lactulose dose by 50% NG tube was pulled out by patient. Lactulose 30g po qid ongoing and I am not going to reduce dosing yet even though she hates the frequent stools. Will monitor levels daily Pt NPO and put on low salt diet for paracentesis, resume diet Now. Plan for discharge tomorrow. The , and daughter have made it clear that mom really cannot go home for him to take care of her. It is been calm increasingly difficult to make sure she maintains her medications and diet. She is willing to go to an assisted living facility for respite care for the next month. From there she will meet with her labor relations manager to assess her prognosis and that we will decide if she is going back home or stay in the assisted living facility. My suspicion is that the family will make a decision toward hospice and the patient will remain in the assisted living facility according to what they are saying. (2) Leukocytosis with lactic acidosis Conclusion/Plan: 2/2 Myeloproliferative neoplasm vs ?Infection vs Reactive Patient follows with Dr Aponte at the [facility] [place] [place]. I spoke to her yesterday. We went over her lab test. Her white cell count rise is noted but her hemoglobin hematocrit and platelets are staying stable. As long as that is stable, there is no need to change therapy at this time. Last visit was 09/04/18. Condition was being monitored WBC today is even higher at 46. Blood cultures drawn and negative at 24 hours. Patient started on 2g Rocephin empirically Paracentesis not possible Yesterday on admission due to INR of 2.4 and active coumadin use Qualifiers: Leukocytosis type: bandemia Qualified Code(s): D72.825 - Bandemia (3) Ascites Conclusion/Plan: 2/2 cirrhosis from [place]. In speaking to Dr. Chau, he asked how he could be of help in managing this woman's case. He said that he had reviewed her chart very cursorily but could not really comment on any major changes in her care since he was the one second hand paper machine. I explained to him that the patient and her family are still a little bit in the dark about her poor overall prognosis, and where the labor relations manager planned on going with therapy and treatment. I explained that I think this patient is in the slow process of dying. From the first time I met her to now, she has deteriorated substantially. If Dr. Villavicencio has thought to aggressively treat her I think we are missing that opportunity in this patient is deteriorating faster than Dr. Villavicencio may realize. I am not sure since I am not speaking to Dr. Villavicencio personally. I would like Dr. Villavicencio to see the patient and she has a appointment scheduled November 13. Questions to be answered are: What is her prognosis? What other therapeutic options can be given such as TIPS? And the patient needs to be told whether or not she is a liver transplant candidate. The patient keeps on holding out hope that that may happen and has mentioned it several times. In speaking to the patient today, I did explain that with myeloproliferative disorder and a factor V Leiden deficiency disorder I thought it would be unlikely. But I am not the specialist and I would like the specialist to let Mrs. salinas know one way or the other. Paracentesis was delayed because patient is on coumadin and her INR is 2.4 on admission Patient needs to continue coumadin without interruption due to Factor V Leidin, Hx of DVT's and increased risk of clotting at INR < 2 but I stopped coumadin, gave Vitamin K last night and this morning for reducing bleeding from paracentesis. Her INR, after 20 mg of oral Vit K, did not budge the INR. Paracentesis done with a type and screen ready. Pt is intravascularly volume depleted but not needing albumin today since only 1 liter out.. Fluid sent for cell count, protein, glucose, LDH, and culture and sensitivity. On aldactone and lasix at home and I would hold off on that at discharge. Her paracentesis did not draw out a large amount of fluid. This woman is dry on physical exam. I hesitate to diurese her too much. Will hold for now in light of lactulose, anticipated diarrhea Qualifiers: Ascites type: other type Qualified Code(s): R18.8 - Other ascites (4) Factor V Leiden mutation Conclusion/Plan: Off coumadin. Will Resume when INR is at 2 or below (5) Myeloproliferative neoplasm Conclusion/Plan: Pt sees Dr Aponte. She feels that her myeloproliferative disorder is stable at this time. (6) Hyperbilirubinemia Conclusion/Plan: ?Increased production vs Decreased Clearance ?Obstruction vs lysis vs other Laboratory Tests 11/05/18 06:06 Total Bilirubin 4.5 H Direct Bilirubin 1.8 H Indirect Bilirubin 2.7
--- NOTE | 2018-11-07 15:34 | Ultrasound Report ---
Reason: tense abd w ascites Procedure Date: 11/07/2018 Accession Number: [id number] / [id number] Procedure: US - Abdominal Paracentesis CPT Code: FULL RESULT: EXAM: ULTRASOUND-GUIDED PARACENTESIS EXAM DATE: 11/07/2018 01:56 PM. CLINICAL HISTORY: Tense abdomen with ascites. COMPARISON: None. TECHNIQUE: Risks, benefits, and alternatives to the procedure were discussed with the patient. All questions answered. Written and verbal consent obtained. Patient was placed in the supine position and the skin overlying the ascites marked with sonographic guidance. The skin was sterilely prepped and draped, and 1% buffered lidocaine was used for local anesthesia. An 18-gauge UA catheter was advanced into the peritoneal ascites and fluid aspirated. Upon completion, the catheter was removed. FINDINGS: A total of 1100 mL of fluid was removed without immediate complication. Patient tolerated procedure well. IMPRESSION: Ultrasound-guided paracentesis without immediate complications. RADIA
[2018-11-07 16:31] LABS: CC,BF RBC 655 /mm^3
[2018-11-07 16:37] LABS: BF COLOR YELLOW; BF SOURCE PERITONEAL
[2018-11-08] MEDS: SODIUM CHLORIDE FLUSH 0.9% 10 ML SYRINGE IVP SCH ×2 (00:19→09:17)
[2018-11-08 06:25] LABS: INR 2.2 (0.8-1.2)
[2018-11-08 06:50] LABS: BASOPHILS % (AUTO) 0.9 %; EOSINOPHILS % (AUTO) 2.6 %; MEAN CORPUSCULAR HEMOGLOBIN 35.5 pg (27.0-31.0); MEAN CORPUSCULAR HGB CONC 32.5 g/dL (32.0-36.0); MEAN CORPUSCULAR VOLUME 109.2 fL (81.0-99.0); MEAN PLATELET VOLUME 8.9 fL (7.9-10.8); NEUTROPHILS % (AUTO) 90.5 %; PLT - PLATELET COUNT 59 10^3/uL (130-450); RED BLOOD COUNT 3.37 10^6/uL (4.20-5.40); RED CELL DISTRIBUTION WIDTH 20.8 % (12.0-15.0)
[2018-11-08 06:58] LABS: WHITE BLOOD COUNT 39.8 x10^3/uL (4.8-10.8)
[2018-11-08 06:59] LABS: ABNORMAL LYMPHS % (MANUAL) 0 %
[2018-11-08 07:04] LABS: ALBUMIN/GLOBULIN RATIO 0.5 (1.0-2.2); BILIRUBIN,TOTAL 4.3 mg/dL (0.2-1.0); CALCIUM 8.5 mg/dL (8.5-10.3); TOTAL PROTEIN 5.7 g/dL (6.7-8.2)
[2018-11-08 07:19] LABS: BAND NEUTROPHILS % (MANUAL) 16 %; BASOPHILS # (MANUAL) 1.2 10^3/uL (0-0.1); BASOPHILS % (MANUAL) 3 %; LYMPHOCYTES % (MANUAL) 5 %; MONOCYTES # (MANUAL) 2.4 10^3/uL (0.0-1.0); NEUTROPHILS # (MANUAL) 32.2 10^3/uL (1.5-6.6); NEUTROPHILS % (MANUAL) 65 %
[2018-11-08 07:25] LABS: DIFFERENTIAL COMMENT MANUAL DIFFERENTIAL; PLATELET ESTIMATE, MANUAL DECREASED (<130,000) (NORMAL); PLATELET MORPHOLOGY 1+ GIANT PLATELETS (NORMAL)
[2018-11-08] MEDS ORDERED: SODIUM CHLORIDE 0.9% 500 ML IV ONE (07:33)
[2018-11-08 08:35] VITALS: BP 97/50
--- NOTE | 2018-11-08 09:01 | CT Report ---
Reason: abd pain after paracentesis Procedure Date: 11/08/2018 Accession Number: [id number] / [id number] Procedure: CT - Abdomen/Pelvis WO CPT Code: FULL RESULT: EXAM: CT ABDOMEN AND PELVIS EXAM DATE: 11/08/2018 08:10 AM. CLINICAL HISTORY: Left upper flank abdominal pain following paracentesis on 11/07/2018. COMPARISONS: ABDOMEN/PELVIS W/O 10/08/2018 2:59 PM. TECHNIQUE: Routine helical CT imaging was performed through the abdomen and pelvis. IV contrast: None. Enteric contrast: No. Reconstructions: Coronal and sagittal. In accordance with CT protocol optimization, one or more of the following dose reduction techniques were utilized for this exam: automated exposure control, adjustment of mA and/or KV based on patient size, or use of iterative reconstructive technique. FINDINGS: Lung Bases: Bibasilar scar/atelectasis. Left upper lobe nodular opacity measuring 3 mm on image 1 series 3 as well as a groundglass opacity in the anterior left upper lobe is partially visualized. Heart size is normal. Coronary calcified plaque. Small hiatal hernia. Liver: Lobular hepatic contour. Gallbladder/Bile Ducts: Numerous calcified gallstones. Spleen: Mildly enlarged measuring 13.7 cm. No perisplenic hematoma. Pancreas: Unenhanced images of the pancreas are unremarkable. Adrenal Glands: Normal. Kidneys: No hydronephrosis. No ureteral dilatation or ureteral calculi. Peritoneal Cavity/Bowel: Small to moderate volume of intraabdominal ascites. No free air. Stomach is mildly distended but no small bowel obstruction. There is mesenteric edema. Gaseous distention of portions of the colon, particularly the transverse colon is seen. No evidence of diverticulitis. Diverticula are seen in the distal colon. No evidence for high attenuation intraabdominal free fluid. No focal abdominal wall thickening or hematoma is identified. Fatty umbilical hernia. Appendix not distinctly seen. Subcentimeter retroperitoneal mesenteric lymph nodes. Pelvic Organs: Pelvic ascites. Uterine calcifications again seen. No pelvic adenopathy. Urinary bladder is only mildly distended. Low position of the rectum may be due to rectocele. Vasculature: Vascular calcifications. No aneurysm. No periaortic hematoma. Bones: Degenerative changes of the lower thoracic and lumbar spine. Lumbar facet arthropathy. No acute osseous abnormalities. No abnormality. Other: Diffuse subcutaneous edema. No distinct evidence for subcutaneous hematoma. Subcutaneous nodule seen in the anterior superficial abdomen which may contain 2 calcifications measuring approximately 4.5 cm, unchanged. IMPRESSION: 1. Small to moderate volume of abdominal and pelvic ascites. No clear evidence for blood products within the ascites. 2. No evidence for abdominal wall or subcutaneous hematoma. 3. No bowel obstruction. 4. Subcutaneous edema. 5. Cholelithiasis. 6. Left upper lobe 3 mm nodule indeterminate, not included on the prior studies. RADIA
--- NOTE | 2018-11-08 09:13 | Discharge Plan ---
"Discharge Plan for SNF / [facility] - Discharge Plan And Transition Orders Disposition: Home, Self Care Condition: Fair Allergies and Adverse Reactions: Allergies Allergy/AdvReac Type Severity Reaction Status Date / Time adhesive tape AdvReac Rash Verified 11/05/18 00:48 - SNF / [facility] Transition Orders Admit to (Facility): [facility] Under the care of (Name): Josy Cooley Discharge Diagnosis: 1. 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 Acute on chronic kidney disease 4. Myeloproliferative disorder 5. Factor V Leiden deficiency 6. Generalized weakness 7. Cognitive deficits secondary to #1 Weight on admission and: Weekly Call PCP immediately if weight increases by: 2.2 kg Other Notification Orders: Call PCP immediately if patient develops dyspnea, chest pain/tightness or edema. House Bowel Program: No Additional Bowel Program Orders: If no BM after 2 days, nurse may give M.O.M. 30ml PO PRN and/or ducolax Supp 1 ND and/or KEVIN 250mg P.O., and/or senna 1-2 tabs PO. On day 3 nurse may give repeat above order until residents constipation is resolved. Annual Influenza Vaccine (between Apr 21 and November 18): Yes Two-step PPD per [facility] [phone] or approved exception documents: Yes Lab Tests or X-ray Orders: CBC and BMP weekly to start November 15 Medication Orders: PLEASE REFER TO THE DISCHARGE MEDICATION LIST. Insulin Orders?: No - Diet Type: 2000 mg sodium with 2000 cc fluid restriction Texture: Regular Liquids: Thin May have monthly special meal: Yes - Therapies | Activity Assistance Devices: Walker"
[2018-11-08] MEDS: LACTULOSE 10 GM /15 ML UDC PO SCH ×2 (09:15→13:18)
--- NOTE | 2018-11-09 02:12 | DISCHARGE SUMMARY ---
Physician: Terri Dominguez MD DATE OF ADMISSION: 11/05/2018 DATE OF DISCHARGE: 11/08/2018 DISCHARGE DIAGNOSES 1. Hepatic encephalopathy. 2. Liver cirrhosis secondary to nonalcoholic steatohepatitis. 3. Subacute liver failure. 4. Ascites. 5. Lactic acidosis. 6. Myeloproliferative disorder. 7. Factor V Leiden deficiency. MEDICATIONS: 1. Lasix 40 mg p.o. twice daily 2. Multivitamin tablet daily 3. Zoloft 25 mg p.o. daily 4. Coumadin 2.5 mg daily 6. Vistaril 25 mg p.o. every 6 hours as needed itching 7. Lactulose 30 g p.o. 3 times daily 8. Nadolol 10 mg p.o. daily 9. Omeprazole 20 mg p.o. daily 10. Rifaximin 550 mg p.o. twice daily 11. Aldactone 75 mg p.o. twice daily PRINCIPAL PROCEDURES 1. Chest x-ray with small lung volumes, interstitial prominence, no pneumothorax, no effusion, an orogastric tube, moderate bilateral shoulder degenerative changes. 2. Paracentesis ultrasound, with paracentesis showing a total of 1100 mL of fluid removed, without immediate complication. 3. Abdomen and pelvis CT done after paracentesis, shows left upper lobe nodularity that is only 3 mm. Ground glass opacity in the anterior left upper lobe. Lobular hepatic contour. Numerous calcified gallstones. Spleen enlarged at 13.7 cm. No hydronephrosis. Small to moderate volume intra-abdominal ascites without free air and diverticulitis. She does have diverticulosis. Pelvic ascites is seen. 4. NG tube placement. 5. Blood culture is negative at 2 days. 6. Paracentesis fluid with moderate white cells, no organisms. 7. Paracentesis fluid that is yellow, clear, white cells 277, red cells 655, 27% neutrophils, 12% lymphocytes, 37% monocytes, 12% macrophages, 11% mesothelial cells. HOSPITAL COURSE: This is an unfortunate female who has cirrhosis due to LEBLANC. She has a slowly progressive subacute liver failure in spite of medical management. She is followed by Dr. Greenfield at [facility]. She was initially diagnosed in March 2018 and has continued to progress. By August, she had portal vein thrombosis in spite of being on Coumadin for a JAK2 positive myeloproliferative disorder and factor V Leiden deficiency. She has also progressed to having grade 2 esophageal varices. She has now been admitted several times for hepatic encephalopathy to this institution. With her last admission, she was discharged 10/27/2018 on rifaximin, beta-ran, spironolactone, Lasix. Her therapy was adjusted on the basis of what her hris manager wanted. The patient does not like the lactulose. Does not like the diarrhea it gives. Saw her primary care provider and reportedly her lactulose dosing was cut in half. The patient then slowly progressed into another episode of confusion, psychomotor slowing, slurred speech. She was brought into the hospital with hepatic encephalopathy with an elevated ammonia level. She was resumed on her usual lactulose. We needed to put an NG tube in to give her the lactulose. By the second day, she was waking up, pulled out the NG tube, and the lactulose was continued orally thereafter. Her hris manager had been recommending possible paracentesis for symptomatic management. Paracentesis was done. This patient's INR is still prolonged at over 2 in spite of 20 mg of vitamin K orally and no Coumadin for 3 or 4 days. Lactic acidosis was present on admission and resolved. She has myeloproliferative disorder with a chronically elevated white cell count. It is difficult to assess if her white cell count is elevated because of infection or the myeloproliferative disorder. Because of the elevated white cell count, lactic acidosis (it most likely was due to intravascular volume depletion and liver failure), she was treated empirically as spontaneous bacterial peritonitis even though she did not have fever or abdominal pain. Treatment was not continued at discharge. Advanced care planning was discussed over several days with and daughter on 3 separate occasions. The is reluctant, but firm in stating that he can no longer take care of his . 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 She has been getting progressively weaker, has been developing cachexia. She is so weak that she needs a 1-person assist to be able to sit her up in bed and stand. As such, she has requested that she be transferred to self-pay respite care at [facility]. The patient is amenable to that. I have spoken to the hris manager station usher, Dr. Orellana for Dr. Greenfield and I have also spoken to Dr. Greenfield. I asked both of them to give me an idea if this woman is really a candidate for liver transplant, because that is what she keeps on saying is going to happen. She really is not. With her factor V Leiden deficiency and myeloproliferative disorder, there is a slim to none chance that they would move forward. On top of that, the patient states that [facility] will not pay for her evaluation for liver transplant. As such, that issue has been laid to rest and she is not going to be evaluated. Dr. Greenfield will be canceling that consult. Dr. Greenfield and I spoke at length that the patient really trusts Dr. Greenfield and would really like to hear the news about her liver disease and its prognosis from her. I have already explained to the patient that I think that her disease is terminal. From the first time I met her to now, she has deteriorated substantially with hyperbilirubinemia, more psychomotor slowing in spite of lactulose, and severe cachexia and protein-calorie malnutrition. As such, the patient is transferred to [facility]. She is due to followup with Dr. Greenfield next week and have a long talk. After respite care in a month, the and patient will reassess where she will go. They do not know if they will keep her at [facility] but then transition to hospice, or would she go home with hospice. The daughter is voting that the patient stay at [facility] because it is overwhelming for Mr. Chery to be taking care of his . After paracentesis was done, the patient was complaining of abdominal pain; and as such, a CT of the abdomen was done and results were as above. PHYSICAL EXAMINATION VITAL SIGNS: Temperature is 36.2, pulse 74, blood pressure 97/50, which was constant during her stay here. Respirations 20, 100% on room air. GENERAL APPEARANCE: She is a very castellano, sallow skin-colored female who looks much older than stated age. Bilateral temporal wasting with gradual worsening cachexia, resulting in almost the look of orbital proptosis, and teeth coming out further and further. Very gaunt. Sceral icterus. NECK: Supple. No goiter or bruits. No JVD. LUNGS: Diminished breath sounds at the bases with slow, unlabored respiration. HEART: PMI is normally placed with an regular regular heart rate and a soft systolic murmur. ABDOMEN: Remains slightly distended in spite of the paracentesis. Generalized achiness and tenderness, mild flank pain not made worse with percusison, and no rebound, no guarding. EXTREMITIES: Have edema. SKIN: Ecchymosis on her forearms, hands, and antecubital fossa where she has had IVs. NEUROLOGIC: This woman is very good at presenting an in-control facade, but she is easily confused and, at times, becomes disoriented to place and time. She will be adamant she has not been given her medications by nursing, but she has. She will not remember a conversation from yesterday to today. She has purposeful movement with no focal deficits, but speech is slightly slurred. She is able to sit up in bed, dangle at the edge of the bed, ambulate to the bedside commode with a 2-person assist. She is very weak. Greater than 30 minutes was spent coordinating discharge. cc: Josy Cooley MD TD: 11/08/2018 18:25 MTDD
== END 2018-11-08 02:00 | disposition home or self-care (01) | DRG 441 ==
LOC: EDUNIT# → ED 00:40 → MS2 02:49
PROVIDERS: ADMIT Internal Medicine; ATTEND Specialist
PROC: 0W9G30Z Drainage of Peritoneal Cavity with Drainage Device, Percutaneous Approach (ICD-10-PCS; principal; 2018-11-07)
DX: K72.00 Acute and subacute hepatic failure without coma (principal); K74.60 Unspecified cirrhosis of liver; I81 Portal vein thrombosis; K65.2 Spontaneous bacterial peritonitis; E43 Unspecified severe protein-calorie malnutrition; R64 Cachexia; C94.6 Myelodysplastic disease, not elsewhere classified; R40.2412 Glasgow coma scale score 13-15, at arrival to emergency department; D68.51 Activated protein C resistance; R18.8 Other ascites; E87.2 Acidosis; I85.10 Secondary esophageal varices without bleeding; D75.81 Myelofibrosis; N17.9 Acute kidney failure, unspecified; K75.81 Nonalcoholic steatohepatitis (NASH); K74.69 Other cirrhosis of liver; N18.9 Chronic kidney disease, unspecified; E86.9 Volume depletion, unspecified; I50.9 Heart failure, unspecified; J45.909 Unspecified asthma, uncomplicated; K80.20 Calculus of gallbladder without cholecystitis without obstruction; Z96.659 Presence of unspecified artificial knee joint; Z68.30 Body mass index [BMI] 30.0-30.9, adult; Z79.01 Long term (current) use of anticoagulants; Z79.899 Other long term (current) drug therapy; Z86.718 Personal history of other venous thrombosis and embolism; Z87.01 Personal history of pneumonia (recurrent)
CPT/HCPCS: 36415; 49083; 71045; 74176; 80053; 81003; 81599; 82140; 82247; 82248; 83010; 83605; 83615; 83690; 84484; 85025; 85610; 86850; 86900; 86901; 87040; 87070; 87205; 89051; 93005; 96360; 99284; 99285; A6250; A9270; J3490; P9047; 81001; 87086

== ENCOUNTER 2018-11-12 13:32 | Outpatient (CLI) | payer MEDICARE | END 2018-11-12 13:33 | disposition home or self-care (01) | LOC: LAB.F 13:32 | PROVIDERS: ATTEND Internal Medicine | DX: I82.402 Acute embolism and thrombosis of unspecified deep veins of left lower extremity (principal) | CPT/HCPCS: 85610 ==